=== PATIENT | female | born 1960 | race Caucasian/White ===

== ENCOUNTER 2018-08-24 01:17 | Emergency (ER) | payer MEDICARE, BC, SELFPAY ==
[2018-08-24 01:23] VITALS: BP 111/68; PULSE 64; RESP 16; TEMP 36.8; O2SAT 94
--- NOTE | 2018-08-24 01:54 | ED.GENADUL_ITS ---
Discharge Plan Disposition Patient Disposition: HOME Condition: Stable Discharge Details Chief Complaint: Trauma Clinical Impression: Fracture of right wrist, Laceration of right hand, Contusion of right elbow, Contusion of right hand, Contusion of Right Hip, Contusion of coccyx Primary Care Provider: Tahira Castrejon ED Provider: Ariela Negron Home Meds and New Rx's Prescriptions: New cephalexin [Keflex] 500 mg capsule 500 mg PO QID 7 Days Qty: 28 RF: 0 No Action morphine 15 MG tablet 10 mg PO BID RF: 0 milk thistle 500 MG capsule 4,000 mg PO DIRECTED RF: 0 trazodone 100 MG tablet 100 mg PO HS RF: 0 alprazolam 2 MG tablet 2 mg PO TID RF: 0 fenofibrate nanocrystallized [Tricor] 145 MG tablet 145 mg PO DAILY RF: 0 omeprazole [Prilosec] 20 MG capsule,delayed release(DR/EC) 20 mg PO DAILY RF: 0 potassium citrate 10 MEQ tablet extended release 10 meq PO BID RF: 0 cyclobenzaprine 10 MG tablet 10 mg PO HS RF: 0 magnesium 200 MG tablet 400 mg PO DAILY RF: 0 oxycodone 10 MG tablet 10 mg PO PRN RF: 0 aspirin [Aspirin Low-Strength] 81 MG tablet,chewable 81 mg PO DAILY RF: 0 multivitamin Tablet 1 tab PO DAILY RF: 0 sennosides [senna] 8.6 mg Tablet 8.6 mg PO TID RF: 0 pantoprazole 40 mg Tablet,Delayed Release (Dr/Ec) 40 mg PO DAILY RF: 0 Discharge Instructions Instructions: Laceration (ED), Wrist Fracture in Adults (ED), Contusion in Adults (ED) Additional Instructions: Rest, ice, elevate right wrist as much as possible. Take your pain medication that you have at home as needed and directed for pain. Keep wound on right hand clean, dry and covered. Use your incentive spirometer that you have at home several times an hour to help with deep breaths to prevent pneumonia. Apply ice to the affected areas of pain several times daily for 20 minutes at a time. Call orthopedics tomorrow morning to schedule follow-up appointment for reevaluation. Return immediately to the emergency department with any worsening or concerning symptoms. Referrals: Juan Maldonado MD [ [facility] STAFF PHYSICIAN] - Discharge Data Discharge Physician: Ariela Negron Medical Decision Making 58-year-old female who presents with multiple injuries status post a mechanical fall on ice 3 hours ago at home. Mainly complaining of pain in the bilateral ribs under her breasts, right hand and wrist, right hip and tailbone. Denies head injury. Vitals within normal limits. Patient moaning in pain and appears uncomfortable. She has edema and tenderness of her right wrist with a superficial laceration on her right palmar hand. No deformity. She has pain with range of motion in right hip but no deformity, shortening or external rotation. She has tenderness to palpation of her midline sacrum and coccyx but no C-spine/T-spine/L-spine tenderness. She has tenderness to palpation of her bilateral anterior ribs above and below breasts, bilateral inferior and posterior ribs. Lungs clear to auscultation. Abdomen soft and nontender. We will give a dose of oxycodone and send for multiple x-rays. Tetanus up-to-date 344 --x-rays reviewed. Right radius and ulnar styloid fractures noted. All other imaging negative. Right hand laceration irrigated and edges closely approximated. Bacitracin and dressing applied. Right volar splint placed. As her hand wound is superficial, I do not feel this meets criteria for significant open fracture, however will start on Keflex. Dose given here as well as prescription for home. Patient placed on orthopedic follow-up list. She is instructed to call orthopedics tomorrow morning to schedule follow-up appointment for evaluation. She is instructed on the importance of rest, ice, elevate and to take her pain m edication that she has at home for pain. She also has incentive spirometer at home that she is encouraged to use to help with deep breaths to prevent pneumonia. She is instructed to return to the ER with any concerns. Medical Records Medical records reviewed: Yes I reviewed the patient's medical records. Imaging Data Radiologic Study: Radiologist's impression: XR Right Elbow Complete, 3 or more Views EXAM DATE/TIME: 08/24/2018 1:49 AM FINDINGS: There is no evidence of fracture. The joint spaces are well maintained. There is no bony destruction. There is no joint effusion. IMPRESSION: 1. No evidence of fracture. 2. There is no bony destruction. XR Right Hand Complete, 3 or more Views EXAM DATE/TIME: 08/24/2018 1:49 AM FINDINGS: No fractures of the fingers are identified. There is a complex intra-articular fracture involving the distal radius. There may be a fracture involving the ulnar styloid. There is normal alignment of the carpal bones. IMPRESSION: 1. Comminuted intra-articular fracture of the distal radius. 2. Possible fracture of the ulnar styloid. 3. No fractures involving the fingers are identified. XR Right Wrist Complete, 3 or more Views XR Right Wrist Complete, 3 or more Views EXAM DATE/TIME: 08/24/2018 1:49 AM FINDINGS: There is a comminuted intra-articular fracture the distal radius. There is no significant angulation. There also appears to be a nondisplaced fracture involving the ulnar styloid. There is normal alignment of the carpal bones. IMPRESSION: 1. Comminuted intra-articular fracture of the distal radius. 2. Nondisplaced fracture of the ulnar styloid. XR Right Hip with Pelvis when Performed, 2 or 3 Views EXAM DATE/TIME: 08/24/2018 1:49 AM FINDINGS: There is no evidence of fracture. The joint spaces are well maintained. There is no bony destruction. Phleboliths are seen within the pelvis. IMPRESSION: No evidence of fracture. XR Sacrum and Coccyx, 2 or More Views EXAM DATE/TIME: 08/24/2018 1:49 AM FINDINGS: The sacrum appears normal. Sacroiliac joints are unremarkable. The neural foramina are intact. There is no bony destruction. There is normal alignment of the sacrum and coccygeal segments. There is no bony destruction. IMPRESSION: Unremarkable sacrum and coccyx. XR Bilateral Ribs with PA Chest, 4 Views EXAM DATE/TIME: 08/24/2018 1:49 AM FINDINGS: The lung avery are hypoventilated. There is some atelectasis/scarring within the lung bases. There is no pleural effusion or pneumothorax. The heart is normal in size. There are postop changes of the heart. No rib fractures are identified. IMPRESSION: 1. Atelectasis and scarring within the lung bases. 2. No evidence for rib fracture. HPI General Mode of arrival: wheelchair . Date/Time Provider Initiated Documentation: 08/24/18 01:30 . Limitations to Documentation: no limitations . Information obtained by: patient . HPI Narrative: Patient is a 58-year-old female who presents with multiple injuries after a slip and fall on ice while taking out her dog at home 3 hours ago. She is mainly complaining of pain in her bilateral ribs under her breasts, right wrist and hand, right elbow, right hip and tailbone. She denies head injury. She states she was walking out to take out her dog and slipped and fell mainly hitting her right side. She states she walked in the house and then due to her pain in her right side slipped again and thinks she may have hit her left side. She denies neck or back pain. She denies shortness of breath or abdominal pain. She takes morphine 50 mg twice daily and oxycodone 10 mg as needed for her chronic abdominal pain with her necrotizing pancreatitis and due to her fibromyalgia. She states her last dose of pain medication was 7:00 last night. Related Data Home Medications Medication Instructions Recorded Confirmed alprazolam 2 mg PO TID tab-cap 10/25/12 08/24/18 fenofibrate nanocrystallized 145 mg PO DAILY 10/25/12 08/24/18 [Tricor] milk thistle 4,000 mg PO DIRECTED 10/25/12 08/24/18 morphine 10 mg PO BID 10/25/12 08/24/18 trazodone 100 mg PO HS tab-cap 10/25/12 08/24/18 omeprazole [Prilosec] 20 mg PO DAILY tab-cap NS 07/02/13 08/24/18 cyclobenzaprine 10 mg PO HS 07/13/13 08/24/18 potassium citrate 10 meq PO BID 03/20/14 08/24/18 magnesium 400 mg PO DAILY 05/26/15 08/24/18 aspirin [Aspirin Low-Strength] 81 mg PO DAILY 09/11/15 08/24/18 oxycodone 10 mg PO PRN 09/11/15 08/24/18 cephalexin [Keflex] 500 mg PO QID 7 Days #28 cap 08/24/18 multivitamin 1 tab PO DAILY 08/24/18 08/24/18 pantoprazole 40 mg PO DAILY 08/24/18 08/24/18 sennosides [senna] 8.6 mg PO TID 08/24/18 08/24/18 Previous Rx's Medication Instructions Recorded cephalexin [Keflex] 500 mg PO QID 7 Days #28 cap 08/24/18 Allergies Allergy/AdvReac Type Severity Reaction Status Date / Time adhesive Allergy Unverified 08/24/18 01:47 atorvastatin [From Lipitor] Allergy Unverified 08/24/18 03:26 bupropion [From Wellbutrin] Allergy Unverified 08/24/18 03:26 gabapentin Allergy Unverified 08/24/18 03:26 pregabalin [From Lyrica] Allergy Unverified 08/24/18 03:26 Sulfa (Sulfonamide Allergy Unverified 08/24/18 01:47 Antibiotics) ssri Allergy Uncoded 08/24/18 01:47 General Stated Complaint: Trauma JONO: 3 Review of Systems Review of Systems All systems reviewed & are unremarkable except as noted in HPI and below Constitutional Reports as per HPI, Denies chills and Denies fever(s) Eyes Denies blurry vision ENT Denies dizziness, Denies sore throat and Denies throat swelling Cardiovascular Denies chest pain and Denies dyspnea Respiratory Denies cough and Denies dyspnea Gastrointestinal Denies abdominal pain, Denies diarrhea and Denies vomiting Genitourinary Denies hematuria and Denies dysuria Musculoskeletal Reports back pain, Denies numbness and Reports other (R hand/wrist/elbow/hip/tailbone pain) Integumentary/Breasts Denies lesions and Denies rash Neurologic Denies dizziness, Denies focal weakness and Denies numbness Allergic/Immunologic Denies throat swelling [facility] Medical History Chronic Lyme Disease Chronic fatigue syndrome Primary fibromyalgia syndrome Systemic candidiasis Surgical History Cervical Conization/LEEP Oophrectomy, Right Social History Smoking/Tobacco Use Status: Never Alcohol Intake: never Drug use: Never Substance use type: does not use Do you feel safe at home: Yes Do you feel safe in your relationship?: Yes Exam Const General: cooperative and other (moaning in pain) Orientation: alert, awake and oriented x3 HENMT Head: normal to inspection Ears: hearing grossly normal bilaterally, external ears normal and TM's normal bilaterally General nose exam: external nose normal Face and sinus: normal facial exam Mouth: oral mucosae normal Eyes General: appearance normal, both eyes and all related structures Eyelids: eyelids normal Pupils: PERRL EOM: EOM intact bilaterally Neck Neck: normal visual inspection Lymphatic: no lymphadenopathy noted Chest Chest: normal inspection of the chest and tenderness (Anterior bilateral rib cage above and below breasts. ) Other: No deformity, step-off, ecchymosis or open wounds. Resp Effort & Inspection: normal respiratory effort and able to speak in complete sentences Auscultation: clear to auscultation bilaterally Cardio Rate: regular rate Rhythm: regular rhythm GI Inspection: normal to inspection Palpation: soft, not firm, no guarding, no hepatosplenomegaly, no masses and nontender Auscultation: normal bowel sounds Back/Spine/Pelvis Cervical Spine: No cervical spinal tenderness Thoracic/Lumbar Spine: No thoracic spinal tenderness and No lumbar spinal tenderness Pelvis: no pain with anterior-posterior compression Sacrum: tenderness midline Coccyx: tenderness on direct palpation Skin General skin exam: no rashes or lesions noted Neuro General: alert and awake Cognition: normal cognition Speech: speech normal Gait: normal gait Motor: muscle tone normal throughout Sensory Exam: no sensory deficits noted Extrem Other: Right upper extremity: Tenderness to palpation of medial and lateral epicondyles and olecranon of right elbow. No deformity of elbow noted pain with range of motion. There is palpation and edema noted to right dorsal and volar wrist. No obvious deformity. There is limitation of motion at the right wrist due to pain. There is a 2 cm superficial laceration noted to surface of right proximal hand near wrist. No active bleeding. There is ecchymosis noted to the distal second finger with pain with range of motion. No deformity. No pain with range of motion noted at right shoulder or upper arm. Right radial and ulnar pulses intact. Left upper extremity: No pain with range of motion in left shoulder, upper arm, elbow, forearm, wrist or hand. Distal pulses intact. Right lower extremity: Pain in right hip with range of motion. No deformity, leg shortening or external rotation. No trauma noted to the right hip or remainder of right leg. Distal pulses intact. Left lower extremity: No pain with range of motion in hip/knee/ankle foot. Distal pulses intact. Psych Appearance: grossly normal Mental Status: mental status grossly normal Speech and Movement: speech and movement normal Affect: normal affect Thought Process: normal Course Vital Signs Temperature 98.2 F 08/24/18 01:23 Pulse 64 08/24/18 01:23 Respiratory Rate 16 08/24/18 01:23 Blood Pressure 111/68 08/24/18 01:23 Pulse Oximetry 94 L 08/24/18 01:23 Temperature 98.2 F 08/24/18 01:23 Temperature Source Temporal Artery Scan 08/24/18 01:23 Pulse 64 08/24/18 01:23 Respiratory Rate 16 08/24/18 01:23 Respiratory Effort 08/24/18 01:26 Respiratory Depth Normal 08/24/18 01:26 Respiratory Pattern Normal 08/24/18 01:26 Blood Pressure 111/68 08/24/18 01:23 Pulse Oximetry 94 L 08/24/18 01:23 Oxygen Delivery Method Room Air 08/24/18 01:23 Oxygen Flow Rate 0 08/24/18 01:23 Procedures Orthopedic Splinting/Casting Injury #1: Side: right Upper Extremity Injury Location: wrist Upper Extremity Immobilizer: volar spint
[2018-08-24] MEDS: oxyCODONE 10 MG TAB PO (01:55)
--- NOTE | 2018-08-24 02:56 | DI.RAD_ITS ---
SYMPTOM/DIAGNOSIS: S/P FALL, PAIN RIGHT ELBOW: There is no evidence of a fracture or dislocation. There is no joint effusion. The bony structures are normally mineralized. RIGHT HAND: There is a comminuted, intra-articular fracture of the distal radius and a nondisplaced fracture of the ulnar styloid. No fracture or dislocation involving the wrist or digits is identified. PA AND LATERAL CHEST AND RIGHT RIBS: No pneumothorax is identified. There are linear densities projected over the left lower lobe consistent with regions of scarring. There is no pleural effusion. The heart is not enlarged. The hilar structures, mediastinum and tracheal air column are intact. A right rib series was performed and no right rib fracture is defined. RIGHT HIP: There is no evidence of a fracture or dislocation. SACRUM AND COCCYX: No sacral or coccygeal fracture is demonstrated. There are degenerative changes involving the SI joints. RIGHT WRIST: There is a nondisplaced, intra-articular fracture of the distal right radius and ulnar styloid.
[2018-08-24] MEDS: Cephalexin 500 MG CAP 1000 MG PO (03:29)
--- NOTE | 2018-08-24 03:33 | DI.VRAD_ITS ---
EXAM: XR Right Elbow Complete, 3 or more Views EXAM DATE/TIME: 08/24/2018 1:49 AM CLINICAL HISTORY: 58 years old, female; Injury or trauma; Fall; Initial encounter; Blunt trauma (contusions or hematomas; Elbow; Right; Injury date: 08/24/2018; Injury details: Fell on ice TECHNIQUE: Imaging protocol: XR Right elbow, 3 or more views. COMPARISON: No relevant prior studies available. FINDINGS: There is no evidence of fracture. The joint spaces are well maintained. There is no bony destruction. There is no joint effusion. IMPRESSION: 1. No evidence of fracture. 2. There is no bony destruction. Dictated and Authenticated by: Yosef Villa MD. Ordering:ALEXA Titus MD
--- NOTE | 2018-08-24 03:34 | DI.VRAD_ITS ---
EXAM: XR Right Hand Complete, 3 or more Views EXAM DATE/TIME: 08/24/2018 1:49 AM CLINICAL HISTORY: 58 years old, female; Injury or trauma; Fall; Initial encounter; Blunt trauma (contusions or hematomas; Hand; Right; Injury date: 08/24/2018; Injury details: Fell on ice TECHNIQUE: Imaging protocol: XR Right hand 3 or more views. COMPARISON: CR RIGHT WRIST COMPLETE 07/14/2013 5:56 PM FINDINGS: No fractures of the fingers are identified. There is a complex intra-articular fracture involving the distal radius. There may be a fracture involving the ulnar styloid. There is normal alignment of the carpal bones. IMPRESSION: 1. Comminuted intra-articular fracture of the distal radius. 2. Possible fracture of the ulnar styloid. 3. No fractures involving the fingers are identified. Dictated and Authenticated by: Yosef Villa MD. Ordering:ALEXA Titus MD
--- NOTE | 2018-08-24 03:35 | DI.VRAD_ITS ---
EXAM: XR Right Wrist Complete, 3 or more Views EXAM DATE/TIME: 08/24/2018 1:49 AM CLINICAL HISTORY: 58 years old, female; Injury or trauma; Fall; Initial encounter; Blunt trauma (contusions or hematomas; Wrist; Right; Injury details: [place] TECHNIQUE: Imaging protocol: XR Right wrist 3 or more views. COMPARISON: CR RIGHT WRIST COMPLETE 07/14/2013 5:56 PM FINDINGS: There is a comminuted intra-articular fracture the distal radius. There is no significant angulation. There also appears to be a nondisplaced fracture involving the ulnar styloid. There is normal alignment of the carpal bones. IMPRESSION: 1. Comminuted intra-articular fracture of the distal radius. 2. Nondisplaced fracture of the ulnar styloid. Dictated and Authenticated by: Yosef Villa MD. Ordering:ALEXA Titus MD
--- NOTE | 2018-08-24 03:36 | DI.VRAD_ITS ---
EXAM: XR Right Hip with Pelvis when Performed, 2 or 3 Views EXAM DATE/TIME: 08/24/2018 1:49 AM CLINICAL HISTORY: 58 years old, female; Injury or trauma; Fall; Initial encounter; Blunt trauma (contusions or hematomas); Right; Hip TECHNIQUE: Imaging protocol: XR Right hip with pelvis when performed, 2 or 3 views COMPARISON: No relevant prior studies. FINDINGS: There is no evidence of fracture. The joint spaces are well maintained. There is no bony destruction. Phleboliths are seen within the pelvis. IMPRESSION: No evidence of fracture. Dictated and Authenticated by: Yosef Villa MD. Ordering:ALEXA Titus MD
--- NOTE | 2018-08-24 03:37 | DI.VRAD_ITS ---
EXAM: XR Sacrum and Coccyx, 2 or More Views EXAM DATE/TIME: 08/24/2018 1:49 AM CLINICAL HISTORY: 58 years old, female; Injury or trauma; Fall; Initial encounter; Blunt trauma (contusions or hematomas) TECHNIQUE: Imaging protocol: XR of the sacrum and coccyx, 2 or more views. COMPARISON: CR XR hip RT complete AP pelvis 08/24/2018 2:25 AM FINDINGS: The sacrum appears normal. Sacroiliac joints are unremarkable. The neural foramina are intact. There is no bony destruction. There is normal alignment of the sacrum and coccygeal segments. There is no bony destruction. IMPRESSION: Unremarkable sacrum and coccyx. Dictated and Authenticated by: Yosef Villa MD. Ordering:ALEXA Titus MD
--- NOTE | 2018-08-24 03:38 | DI.VRAD_ITS ---
EXAM: XR Bilateral Ribs with PA Chest, 4 Views EXAM DATE/TIME: 08/24/2018 1:49 AM CLINICAL HISTORY: 58 years old, female; Injury or trauma; Fall; Initial encounter; Rib area, bilateral; Blunt trauma TECHNIQUE: Imaging protocol: XR Bilateral ribs 4 views with PA chest. COMPARISON: CR CHEST 2 VIEWS PA,LAT 11/04/2015 6:52 PM FINDINGS: The lung avery are hypoventilated. There is some atelectasis/scarring within the lung bases. There is no pleural effusion or pneumothorax. The heart is normal in size. There are postop changes of the heart. No rib fractures are identified. IMPRESSION: 1. Atelectasis and scarring within the lung bases. 2. No evidence for rib fracture. Dictated and Authenticated by: Yosef Villa MD. Ordering:ALEXA Titus MD
[2018-08-24 04:00] VITALS: BP 111/68; PULSE 76; RESP 18; O2SAT 93
== END 2018-08-24 04:07 | disposition home or self-care (01) ==
PROVIDERS: Emergency Provider Physician Assistant; PCP Family Medicine
DX: S52.571A Other intraarticular fracture of lower end of right radius, initial encounter for closed fracture (principal); S52.614A Nondisplaced fracture of right ulna styloid process, initial encounter for closed fracture; S50.01XA Contusion of right elbow, initial encounter; S61.411A Laceration without foreign body of right hand, initial encounter; S70.01XA Contusion of right hip, initial encounter; S30.0XXA Contusion of lower back and pelvis, initial encounter; R07.81 Pleurodynia; W00.0XXA Fall on same level due to ice and snow, initial encounter; Y93.K1 Activity, walking an animal
CPT/HCPCS: 29125; 99284; 71046; 71110; 72220; 73080; 73110; 73130; 73502; L3650

== ENCOUNTER → 2018-08-31 11:08 | Outpatient (BNVA) | payer MEDICARE, BC, SELFPAY | PROVIDERS: PCP Family Medicine; Referring Provider Family Medicine; Visit Provider Orthopaedic Surgery | DX: S52.571A Other intraarticular fracture of lower end of right radius, initial encounter for closed fracture (principal); S52.614A Nondisplaced fracture of right ulna styloid process, initial encounter for closed fracture; W00.0XXA Fall on same level due to ice and snow, initial encounter | CPT/HCPCS: 29075; 99211; 99213 ==

== ENCOUNTER 2018-09-12 11:33 | Outpatient (CLI) | payer MEDICARE, BC, SELFPAY ==
--- NOTE | 2018-09-12 11:07 | DI.RAD_ITS ---
SYMPTOMS/DIAGNOSIS: F/U FRACTURE RIGHT WRIST: Three views. Comparison is 08/24/18. The patient's wrist is in a cast, which does obscure the underlying bony detail. There does not appear to be any significant change in the mildly impacted but otherwise nondisplaced fracture involving the distal right radius.
== END 2018-09-12 11:53 ==
PROVIDERS: PCP Family Medicine; Visit Provider Orthopaedic Surgery
DX: S52.614A Nondisplaced fracture of right ulna styloid process, initial encounter for closed fracture (principal); X58.XXXA Exposure to other specified factors, initial encounter
CPT/HCPCS: 99211; 99212; 73110

== ENCOUNTER 2018-09-28 14:09 | Outpatient (CLI) | payer MEDICARE, BC, SELFPAY ==
--- NOTE | 2018-09-28 14:04 | DI.RAD_ITS ---
SYMPTOMS/DIAGNOSIS: F/U FRACTURE RIGHT WRIST: The out-of-cast examination today reveals no interval change in the alignment of a comminuted intraarticular fracture of the distal radius.
== END 2018-09-28 14:29 ==
PROVIDERS: PCP Family Medicine; Referring Provider Family Medicine; Visit Provider Orthopaedic Surgery
DX: S52.614A Nondisplaced fracture of right ulna styloid process, initial encounter for closed fracture; X58.XXXA Exposure to other specified factors, initial encounter
CPT/HCPCS: 99211; 99213; 73110; L3908

== ENCOUNTER → 2018-10-19 11:01 | Outpatient (BNVA) | payer MEDICARE, BC, SELFPAY | PROVIDERS: PCP Family Medicine; Referring Provider Family Medicine; Visit Provider Orthopaedic Surgery | DX: S52.501A Unspecified fracture of the lower end of right radius, initial encounter for closed fracture (principal); X58.XXXA Exposure to other specified factors, initial encounter; M79.7 Fibromyalgia; G89.29 Other chronic pain | CPT/HCPCS: 99211; 99213 ==

== ENCOUNTER 2019-01-17 03:34 | Outpatient (CLI) | payer MEDICARE, BC, SELFPAY ==
--- NOTE | 2019-01-17 15:26 | DI.MAMMO_ITS ---
SYMPTOM/DIAGNOSIS: SCREENING, Z12.31 BILATERAL SCREENING MAMMOGRAMS: Comparison is made with 2012 and 2017. The breasts are composed of scattered fibroglandular densities, breast density category B. No suspicious masses or suspicious microcalcifications are seen. There has been no significant change. IMPRESSION: Category 1, negative mammogram. Yearly screening mammography is recommended. Breast density category B. MQSA ASSESSMENT OF FINDINGS: Negative. Category 1. Patient will receive a letter notifying them of these results. BI-RADS category B. There are scattered areas of fibroglandular density.
== END 2019-01-17 03:54 ==
PROVIDERS: PCP Family Medicine; Visit Provider Family Medicine
DX: Z12.31 Encounter for screening mammogram for malignant neoplasm of breast (principal)
CPT/HCPCS: 77063; 77067

== ENCOUNTER 2019-10-16 13:10 | Outpatient (REF) | payer MEDICARE, BC, SELFPAY ==
[2019-10-16 21:57] LABS: ALT 59 U/L (14-59); AST 46 U/L (15-37); Alkaline Phosphatase 100 U/L (46-116); Anion Gap 7.8 mmol/L (3-11); BUN 13 mg/dL (7-18); Bilirubin, Total 0.6 mg/dL (0.2-1.0); CO2 28.2 mmol/L (21.0-32.0); CREATININE 1.02 mg/dL (0.55-1.02); Calcium 9.6 mg/dL (8.5-10.1); Chloride 105 mmol/L (98-107); Estimated GFR 55.28 (mL/min/1.73m2); FREE T4 1.22 ng/dL (0.76-1.46); Glucose 158 mg/dL (74-106); Sodium 141 mmol/L (136-145); Total Protein 7.3 g/dL (6.4-8.2)
[2019-10-16 22:25] LABS: HCT 47.3 % (36.0-46.0); HGB 16.2 g/dL (12.0-15.5); Mean Corp. HGB Concentration 34.2 g/dL (32.0-36.0); Mean Corpuscular Hemoglobin 31.3 pg (27.0-33.0); Mean Corpuscular Volume 91.5 fL (80-95); Mean Platelet Volume 9.5 fL (8.0-11.0); Platelet Count 372 x1000/uL (130-400); RBC 5.17 m/cumm (4.00-5.20); RBC Distribution Width 12.3 % (11.7-14.6); White Blood Cell Count 6.99 k/cumm (4.4-10.8)
== END 2019-10-16 13:30 ==
LOC: NCHCN 13:10
PROVIDERS: PCP Family Medicine; Visit Provider Family Medicine
DX: R53.83 Other fatigue (principal); G89.29 Other chronic pain
CPT/HCPCS: 80053; 85027; 84439; 84443

== ENCOUNTER 2020-02-19 14:26 | Outpatient (CLI) | payer MEDICARE, BC, SELFPAY ==
--- NOTE | 2020-02-19 14:21 | DI.RAD_ITS ---
EXAM: XR SHOULDER RT COMPLETE 2+V CLINICAL HISTORY: right shoulder pain TECHNIQUE: COMPARISON: No exams were available for comparison FINDINGS: Two views were obtained. There are mild hypertrophic degenerative changes at the acromioclavicular j oint. Glenohumeral cartilaginous joint space appears fairly well maintained. No bony abnormality seen invo lving the humerus or glenoid. Alignment appears within normal limits. IMPRESSION: Mild degenerative changes of the AC joint. RADIATION DOSE DELIVERED: Total DLP
== END 2020-02-19 14:46 ==
PROVIDERS: PCP Family Medicine; Referring Provider Family Medicine; Visit Provider Student in an Organized Health Care Education/Training Program
DX: M19.011 Primary osteoarthritis, right shoulder (principal); M25.511 Pain in right shoulder; M75.21 Bicipital tendinitis, right shoulder; M75.51 Bursitis of right shoulder; Z87.81 Personal history of (healed) traumatic fracture
CPT/HCPCS: 99204; 99215; 73030

== ENCOUNTER 2020-03-06 02:43 | Outpatient (CLI) | payer MEDICARE, BC, SELFPAY ==
--- NOTE | 2020-03-06 08:36 | DI.MRI_ITS ---
EXAM: MR UPPER JOINT RT WO CLINICAL HISTORY: Right shoulder pain traumatic onset >1 year,TENDINITIS, BURSITIS,M75.51,. TECHNIQUE: Multiplanar multisequence MRI was performed. COMPARISON: Plain films dated 19 February 2020 FINDINGS: Bones: There is no fracture or contusion pattern. The acromioclavicular joint shows mild inferior spurring a nd small amounts of fluid. There is no significant impingement. There is minimal spurring at the un dersurface of the acromion.. No subcoracoid or glenohumeral joint effusion is present. There is a minimal amount of fluid in the sub coracoid bursa. Rotator Cuff: The supraspinatus tendon shows increased signal distally which could indicate tendinitis versus parti al tear. There is a small cyst in the greater tuberosity.. The infraspinatus tendon is intact. The subscapularis and teres minor are normal. Labrum and biceps anchor: The biceps tendon is located. The anchor is well maintained. The labrum is within normal limits. IMPRESSION: Supraspinatus tendinitis versus partial tear. Minimal amount of fluid in the subacromial subdeltoid bursa could indicate bursitis. DATA REPOSITORY:
== END 2020-03-06 03:03 ==
PROVIDERS: PCP Family Medicine; Visit Provider Student in an Organized Health Care Education/Training Program
DX: M75.51 Bursitis of right shoulder (principal); M25.511 Pain in right shoulder
CPT/HCPCS: 73221

== ENCOUNTER → 2020-04-09 14:40 | Outpatient (BNVA) | payer MEDICARE, BC, SELFPAY | PROVIDERS: PCP Family Medicine; Referring Provider Family Medicine; Visit Provider Student in an Organized Health Care Education/Training Program | DX: M75.51 Bursitis of right shoulder (principal); M75.21 Bicipital tendinitis, right shoulder | CPT/HCPCS: 20610; 99214; J1030 ==

== ENCOUNTER → 2021-12-31 02:36 | Outpatient (CLI) | payer OTHER, SELFPAY ==
--- NOTE | 2021-12-31 | DI.MAMMO_ITS ---
Exam(s) MAMMO SCREENING EXAM: MAMMO SCREENING CLINICAL HISTORY: SCREENING, Z12.31 TECHNIQUE: Bilateral full field digital CC and MLO mammographic images were obtained with 3D tomosyn thesis and utilizing computer aided detection (CAD). COMPARISON: Available for comparison. FINDINGS: Masses/Architectural Distortion: None seen. Microcalcifications: No suspicious pleomorphic-type are seen. Skin Thickening/Nipple Retraction: None. IMPRESSION: 1. No significant interval change with no specific features of malignancy noted. 2. Unless there is more urgent need, screening mammography is recommended, as per [employer] guidelines. BI-RADS Category 1 - Negative Breast Density - Category B - Scattered areas of fibroglandular density Breast density category C or D implies that the patient has dense breast tissue. Dense breast tissue is very common and is not abnormal but dense breast tissue can make it harder to find cancer on a ma mmogram. Also, dense breast tissue may increase their breast cancer risk. This information about the result of the mammogram report was provided to the patient to raise their awareness. Use this report when you speak with the patient about their risks for breast cancer, which includes their family hist ory. At that time, you may recommend for more screening tests (Ultrasound or MRI) as they might be us eful based on their risk. A negative radiographic report should not delay biopsy if a dominant or clinically suspicious mass is present. Up to ten percent of cancers are not identified on mammography. A negative report may reinforce clinical impression. Adenosis and dense breasts may obscure an underlying neoplasm. False positive reports average 6 to 10%. Patient will receive a letter notifying them of these results.
== END ==
PROVIDERS: PCP Family Medicine; Visit Provider Family Medicine
DX: Z12.31 Encounter for screening mammogram for malignant neoplasm of breast (principal)
CPT/HCPCS: 77063; 77067

== ENCOUNTER → 2021-12-31 02:37 | Outpatient (CLI) | payer OTHER, SELFPAY ==
--- NOTE | 2021-12-31 | DI.DEXA_ITS ---
Exam(s) XR DEXA BONE DENSITY W/WO MARY EXAM: XR DEXA BONE DENSITY W/WO MARY CLINICAL HISTORY: MENOPAUSAL SCREENING, Z78.0 TECHNIQUE: COMPARISON: Comparison examination is 12/26/2008. FINDINGS: Lateral Spine Image: Unremarkable. No compression deformities identified. Left hip: Total T-Score: -2.6. This compares to -0.7 on the prior examination. Total Z-Score: -1.5 T- and Z-scores: Findings are consistent with osteoporosis. Lumbar Spine: Total T-Score: -1.8. This compares to -0.8 on the prior examination. Total Z-Score: -0.2 T- and Z-scores: Findings are consistent with osteopenia. IMPRESSION: Osteoporosis in the left hip.
== END ==
PROVIDERS: PCP Family Medicine; Visit Provider Family Medicine
DX: M81.0 Age-related osteoporosis without current pathological fracture (principal); Z78.0 Asymptomatic menopausal state
CPT/HCPCS: 77080; 87480; 87510; 87660

== ENCOUNTER 2021-12-31 17:36 | Outpatient (REF) | payer OTHER, SELFPAY ==
--- NOTE | 2021-12-31 15:20 | PAPFT_PTH ---
PATIENT: Maricruz Best LOC: [facility] U#:[id number] AGE/SX: 61/F ROOM: RE12/31/[address]: Obdulia Cordova MD : 1960 BED: DIS: 12/31/2021 SPEC #: [id number] RECD: 12/31/21 17:47 STATUS: CHARLEY REQ #: [id number] MAX: 12/31/21 15:[address]: Obdulia Cordova DEPT: [facility] Cytology RECD BY: Kim Beltran ENTERED: 12/31/21 17:48 SP TYPE: PAPFT OTHR DR: Tahira Castrejon Tissues: 1 - CX/ENDOCX FOR PAP SMEARS Procedures: PAP THIN PREP/UVM Screening HPV DNA PROBE Comments: [id number]
== END 2021-12-31 17:37 | disposition home or self-care (01) ==
LOC: LBN 17:36
PROVIDERS: PCP Family Medicine; Visit Provider Obstetrics & Gynecology
DX: Z01.419 Encounter for gynecological examination (general) (routine) without abnormal findings (principal); Z11.51 Encounter for screening for human papillomavirus (HPV)
CPT/HCPCS: 88142; 87624

== ENCOUNTER 2022-10-14 21:13 | Emergency (ER) | payer OTHER, SELFPAY ==
[2022-10-14 21:16] VITALS: BP 128/71; PULSE 60; RESP 16; TEMP 36.4; O2SAT 98
--- NOTE | 2022-10-14 21:45 | DI.CT_ITS ---
Exam(s) CT ABDOMEN PELVIS W EXAM: CT ABDOMEN PELVIS W CLINICAL HISTORY: right flank pain and hematuria. TECHNIQUE: Imaging Protocol: Axial computed tomography images with coronal and sagittal reformatted images were created and reviewed CONTRAST MATERIAL: Intravenous: Omnipaque 350 Contrast volume:100 ml Oral: yes / COMPARISON: CT ABD PELVIS WO CONTRAST from 11/04/2015 FINDINGS: ABDOMEN: Lung Bases: Normal where visualized. Heart mildly enlarged. Liver: Normal density. No measurable mass. Gallbladder and biliary tract: Status post cholecystectomy. Stable mild biliary dilatation. Pancreas: Normal density, no abnormal calcifications or inflammatory process. Spleen: Normal. Kidneys: Normal size, contour and axis. Mild right hydronephrosis secondary to a 3 millimeter calculu s in the distal ureter. A additional small nonobstructing stones noted at the lower pole of the righ t kidney. No left renal stones are seen. There are multiple small bilateral renal cysts. No follow -up recommended. No suspicious masses seen. Adrenal glands: No masses seen. Abdominal Aorta: Abdominal portion non-dilated. Soft tissues: Ventral hernia repair which appears intact. PELVIS: Bladder: Nearly empty. No calculi.No focal mass. Bowel: No obstruction. No bowel wall thickening. Peritoneal cavity: No ascites, collection or mesenteric inflammatory response. Bones: Degenerative disc changes at L5-S1. Reproductive organs: Within normal limits. Lymph nodes: Unremarkable. Impression: Mild right hydronephrosis secondary to a 3 millimeter stone in the distal ureter. Additional small n onobstructing stones lower pole right kidney. RADIATION DOSE DELIVERED: 727.82mGy.cm Total DLP DATA REPOSITORY: All CT scans at this facility are submitted to the National Radiology Data Registry (NRDR) Dose Index Registry (DIR) with the [employer] (ACR). RADIATION OPTIMIZATION: All CT scans at this facility use at least one of these dose optimization te chniques: automated exposure control; mA and/or kV adjustment per patient size (includes targeted exa ms where dose is matched to clinical indication); or iterative reconstruction.
[2022-10-14 21:48] LABS: Abs Immature Grans 0.01 10^3/uL (0.0-0.06); Absolute Basophil Count 0.05 10^3/uL (0.0-0.2); Absolute Lymphocyte Count 1.75 10^3/uL (1.2-3.4); Absolute Monocyte Count 0.93 10^3/uL (0.1-0.8); Absolute Neutrophil Count 5.22 10^3/uL (1.2-6.7); Basophils % 0.6; Eosinophils % 1.2; HCT 39.4 % (36.0-46.0); HGB 13.5 g/dL (11.2-15.7); Immature Grans % 0.1; Lymphocytes % 21.7; MCH 32.4 pg (27.0-33.0); MCHC 34.3 % (32.0-36.0); MCV 95 fL (80-95); Monocytes % 11.5; Neutrophils % 64.9; Platelet Count 238 10^3/uL (130-400); RBC 4.17 10^6/uL (3.93-5.22); RDW 12.2 % (11.7-14.6); RDW-SD 42.3 fL; WBC 8.06 10^3/uL (4.4-10.8)
[2022-10-14 22:02] LABS: ALT 19 U/L (14-59); AST 30 U/L (15-37); Alkaline Phosphatase 43 U/L (46-116); Anion Gap 6.9 mmol/L (3-11); BUN 11 mg/dL (7-18); Bilirubin, Total 0.6 mg/dL (0.2-1.0); CO2 27.1 mmol/L (21.0-32.0); CREATININE 0.9 mg/dL (0.55-1.02); Calcium 9.4 mg/dL (8.5-10.1); Chloride 106 mmol/L (98-107); Estimated GFR 71.83 (mL/min/1.73m2); Glucose 83 mg/dL (74-106); Lipase 32 U/L (16-77); Sodium 140 mmol/L (136-145); Total Protein 6.8 g/dL (6.4-8.2)
[2022-10-14] MEDS: Lactated Ringers 1,000 ML 1000 ML IV (22:42)
[2022-10-14] MEDS: fentaNYL 100 MCG/2 ML VIAL 50 MCG IVP (22:43)
--- NOTE | 2022-10-14 22:48 | W.ED.GENAD ---
Discharge Plan Disposition Patient Disposition: Home Condition: Improving Discharge Details Clinical Impression: Kidney stone Primary Care Provider: Tahira Castrejon ED Provider: Kim Cullen Home Meds and New Rx's Prescriptions: New cefpodoxime 200 mg tablet 200 mg PO BID 5 Days Qty: 10 0RF Rx Instructions: must administer with a meal/food tamsulosin [Flomax] 0.4 mg capsule 0.4 mg PO DAILY 5 Days Qty: 5 0RF No Action ondansetron HCl 4 mg tablet 4 mg PO Q6H PRN sumatriptan succinate 100 mg tablet See Rx Instructions PO .COMPLEX Rx Instructions: take 1 tab at onset of headache; if no relief, may repeat 1 tab after at least 2 hrs; max = 2 tabs/24 hrs PO ibuprofen 600 mg tablet 600 mg PO Q6H PRN hydrocortisone 2.5 % cream 1 applic topical BID PRN naloxone [Narcan] 4 mg/actuation spray,non-aerosol 4 mg intranasal Q2M PRN Rx Instructions: spray 1 dose into ONE nostril; alternate nostrils w each dose until help arrives rosuvastatin 20 mg tablet 20 mg PO DAILY albuterol sulfate [Ventolin HFA] 90 mcg/actuation HFA aerosol inhaler 2 puff inhalation Q6H PRN alprazolam 2 mg tablet 2 mg PO TID PRN fenofibrate nanocrystallized [Tricor] 145 mg tablet 54 mg PO DAILY morphine 15 mg tablet 15 mg PO BID PRN trazodone 100 mg tablet 100 mg PO HS Patient Comments: 12/31/21- per [facility] med list- take 1-2 tab po every night (100 mg- 200 mg) cyclobenzaprine 10 mg tablet 5 mg PO TID PRN aspirin [Aspirin Low-Strength] 81 MG tablet,chewable 81 mg PO DAILY oxycodone 10 mg tablet 5 mg PO BID PRN multivitamin Tablet 1 tab PO DAILY Discharge Instructions Instructions: Kidney Stones (ED) Additional Instructions: Please follow-up with urology next week. Please return to the emergency department for any worsening symptoms. Discharge Data Discharge Date/Time-TO BE ENTERED AT DEPARTURE: 10/15/22 01:01 Medical Decision Making <HANNAH Post - Last Filed: 10/15/22 16:14> LB: This is very left 62-year-old female presents after injury to her flank with subsequent development of hematuria Denies any chest pain, shortness of breath, history of coagulopathy. Hemodynamically stable, CBC within normal limits, will order CT abdomen and pelvis with contrast for further differentiation Will need urinalysis, CT abdomen and pelvis, repeat assessment Patient has been hemodynamically stable throughout this encounter Will transition care to pending CT interpretation and urinalysis review SD: 00:54 Distal right ureteral stone. Pain well controlled. No fever no white count. Nitrate positive urine we will start empiric cefpodoxime. We will also provide Flomax. Patient doing much better after medications. We will follow-up with urology. Given home care instructions and return precautions Medical Records Medical records reviewed: Yes I reviewed the patient's medical records. Lab Data Lab results reviewed: Yes I reviewed the patient's lab results. <Junior Dodge MD - Last Filed: 10/15/22 00:56> 62-year-old female presents after injury to her flank with subsequent development of hematuria Denies any chest pain, shortness of breath, history of coagulopathy. Hemodynamically stable, CBC within normal limits, will order CT abdomen and pelvis with contrast for further differentiation Will need urinalysis, CT abdomen and pelvis, repeat assessment Patient has been hemodynamically stable throughout this encounter Will transition care to pending CT interpretation and urinalysis review 00:54 Distal right ureteral stone. Pain well controlled. No fever no white count. Nitrate positive urine we will start empiric cefpodoxime. We will also provide Flomax. Patient doing much better after medications. We will follow-up with urology. Given home care instructions and return precautions HPI <HANNAH Post - Last Filed: 10/15/22 16:14> General Date/Time Provider Initiated Documentation: 10/14/22 21:22. HPI Narrative: This 62-year-old female presents with report of right flank pain and lower abdominal pain that started last evening after hitting her abdomen on the corner of a counter. Denies any additional injury. States she started urinating blood this morning. Denies any clots. Denies any blood in her stool. Denies history of coagulopathy. Reports lower abdominal pain and right flank pain. Related Data Home Medications Medication Instructions Recorded Confirmed aspirin 81 mg chewable tablet 81 mg PO DAILY 09/11/15 12/31/21 (Aspirin Low-Strength) multivitamin 1 tab PO DAILY 08/24/18 12/31/21 albuterol sulfate 90 mcg/actuation 2 puff inhalation Q6H PRN 12/31/21 12/31/21 aerosol inhaler (Ventolin HFA) alprazolam 2 mg tablet 2 mg PO TID PRN 12/31/21 12/31/21 cyclobenzaprine 10 mg tablet 5 mg PO TID PRN 12/31/21 12/31/21 fenofibrate nanocrystallized 145 54 mg PO DAILY 12/31/21 12/31/21 mg tablet (Tricor) hydrocortisone 2.5 % topical cream 1 applic topical BID PRN 12/31/21 12/31/21 ibuprofen 600 mg tablet 600 mg PO Q6H PRN 12/31/21 12/31/21 morphine 15 mg immediate release 15 mg PO BID PRN 12/31/21 12/31/21 tablet naloxone 4 mg/actuation nasal 4 mg intranasal Q2M PRN 12/31/21 12/31/21 spray (Narcan) ondansetron HCl 4 mg tablet 4 mg PO Q6H PRN 12/31/21 12/31/21 oxycodone 10 mg tablet 5 mg PO BID PRN 12/31/21 12/31/21 rosuvastatin 20 mg tablet 20 mg PO DAILY 12/31/21 12/31/21 sumatriptan succinate 100 mg tablet See Rx Instructions PO .COMPLEX 12/31/21 12/31/21 trazodone 100 mg tablet 100 mg PO HS 12/31/21 12/31/21 cefpodoxime 200 mg tablet 200 mg PO BID 5 days #10 tabs 10/15/22 tamsulosin 0.4 mg capsule (Flomax) 0.4 mg PO DAILY 5 days #5 caps 10/15/22 Previous Rx's Medication Instructions Recorded cefpodoxime 200 mg tablet 200 mg PO BID 5 days #10 tabs 10/15/22 tamsulosin 0.4 mg capsule (Flomax) 0.4 mg PO DAILY 5 days #5 caps 10/15/22 Allergies Allergy/AdvReac Type Severity Reaction Status Date / Time adhesive Allergy Verified 12/31/21 14:51 atorvastatin [From Lipitor] Allergy Verified 12/31/21 14:51 bupropion [From Wellbutrin] Allergy Verified 12/31/21 14:51 gabapentin Allergy Verified 12/31/21 14:51 pregabalin [From Lyrica] Allergy Verified 12/31/21 14:51 Sulfa (Sulfonamide Allergy Verified 12/31/21 14:51 Antibiotics) ssri Allergy Uncoded 12/31/21 14:51 General Stated Complaint: FlankPain JONO: 3 PFSH <HANNAH Post - Last Filed: 10/15/22 16:14> All Active Problems (Updated 10/15/22 @ 00:54 by Junior Dodge MD) Kidney stone (Chronic) Bursitis of right shoulder (Acute) Tendinitis of long head of biceps brachii of right shoulder (Acute) Right shoulder pain (Acute) Acute necrotizing pancreatitis (Acute) Chronic narcotic dependence (Chronic) Pleural effusion (Acute) Pericarditis (Acute) Pericardial effusion without cardiac tamponade (Acute) Chest pain, pleuritic (Acute) Chronic pain syndrome (Chronic) Anemia (Acute) Myalgia (Chronic) Peptic ulcer disease (Chronic) H/o Lyme disease (Chronic) Cardiomegaly (Chronic) Atrial septal defect (Chronic) Fracture dislocation of joint (Acute) Closed nondisplaced fracture of styloid process of right ulna (Acute) Other intraarticular fracture of lower end of right radius, initial encounter for closed fracture (Acute) Medical History (Updated 10/15/22 @ 00:54 by Junior Dodge MD) Chronic fatigue syndrome Chronic Lyme Disease Primary fibromyalgia syndrome Systemic candidiasis Surgical History Cervical Conization/LEEP ? year and also cryo cauterizations ? Pap diagnosis Oophrectomy, Right ? year secondary to torsion Social History Smoking/Tobacco Use Status: Never Smoking risk assessment performed?: Yes Alcohol Intake: never Drug use: Never Substance use type: does not use Current gender identity: female Do you feel safe at home: Yes Do you feel safe in your relationship?: Yes Female Reproductive History Menstrual Age of Menarche: 17 Duration of menses: 6-7 days control method: none History History 3 Para 0 Hx # Term Pregnancies Multiple births Hx # Pregnancies Ectopic pregnancies AB induced Hx Number of Living Children AB spontaneous 3 Exam <HANNAH Post - Last Filed: 10/15/22 16:14> Const General: cooperative, comfortable and no acute distress Resp Effort & Inspection: normal respiratory effort Auscultation: clear to auscultation bilaterally Cardio Rate: regular rate Rhythm: regular rhythm GI Other: Mild suprapubic tenderness and right flank tenderness, no visible sign of trauma, no rebound or guarding Skin General skin exam: no rashes or lesions noted Neuro General: patient alert and patient oriented x3 Course <HANNAH Post - Last Filed: 10/15/22 16:14> Vital Signs Vital signs: Vital Signs Temperature 36.4 C L 10/14/22 21:16 Pulse 60 10/14/22 21:16 Respiratory Rate 16 10/14/22 21:16 Blood Pressure 128/71 10/14/22 21:16 Pulse Oximetry 98 10/14/22 21:16 Temperature 36.4 C L 10/14/22 21:16 Pulse 60 10/14/22 21:16 Respiratory Rate 16 10/14/22 21:16 Respiratory Effort Normal 10/14/22 21:20 Blood Pressure 128/71 10/14/22 21:16 Blood Pressure Position Sitting 10/14/22 21:16 Pulse Oximetry 98 10/14/22 21:16 Pain Level 9 10/14/22 22:43 Lab/Test Results Lab/Test Results: Laboratory Tests Range/Units 10/14/22 10/14/22 21:40 21:40 WBC (4.4-10.8) 10^3/uL 8.06 RBC (3.93-5.22) 10^6/uL 4.17 Hgb (11.2-15.7) g/dL 13.5 Hct (36.0-46.0) % 39.4 MCV (80-95) fL 95 MCH (27.0-33.0) pg 32.4 MCHC (32.0-36.0) % 34.3 RDW (11.7-14.6) % 12.2 Plt Count (130-400) 10^3/uL 238 MPV (8.0-11.0) fL 9.0 Immature Gran % 0.1 Neutrophils % 64.9 Lymphocytes % 21.7 Monocytes % 11.5 Eosinophils % 1.2 Basophils % 0.6 Nucleated RBC % (0.0-0.3) % 0.0 Absolute Neutrophils (1.2-6.7) 10^3/uL 5.22 Absolute Lymphocytes (1.2-3.4) 10^3/uL 1.75 Absolute Monocytes (0.1-0.8) 10^3/uL 0.93 H Absolute Eosinophils (0.0-0.7) 10^3/uL 0.10 Absolute Basophils (0.0-0.2) 10^3/uL 0.05 Sodium (136-145) mmol/L 140 Potassium (3.5-5.1) mmol/L 4.0 Chloride (98-107) mmol/L 106 Carbon Dioxide (21.0-32.0) mmol/L 27.1 Anion Gap (3-11) mmol/L 6.9 BUN (7-18) mg/dL 11 Creatinine (0.55-1.02) mg/dL 0.9 Est GFR (CKD-EPI 2020) (mL/min/1.73m2) 71.83 Glucose (74-106) mg/dL 83 Calcium (8.5-10.1) mg/dL 9.4 Total Bilirubin (0.2-1.0) mg/dL 0.6 AST (15-37) U/L 30 ALT (14-59) U/L 19 Alkaline Phosphatase (46-116) U/L 43 L Total Protein (6.4-8.2) g/dL 6.8 Albumin (3.4-5.0) g/dL 4.0 Lipase (16-77) U/L 32
[2022-10-14] MEDS: Omnipaque 350 MG/ML 100 ML BTL IJ (22:57)
[2022-10-14] MEDS: Normal Saline - Diluent 50 ML VIAL IJ (22:58)
[2022-10-14 23:04] LABS: Bilirubin Moderate (Negative); Blood Large (Negative); Clarity Cloudy (Clear); Glucose Negative (Negative); Ketones 15 mg/dL (Negative); Leukocyte Esterase Negative (Negative); Nitrite Positive (Negative); pH 5.5 (5-8)
[2022-10-14 23:20] LABS: C & S Indicated? Yes
--- NOTE | 2022-10-14 23:58 | DI.VRAD_ITS ---
PROCEDURE INFORMATION: Exam: CT Abdomen And Pelvis With Contrast Exam date and time: 10/14/2022 10:51 PM Age: 62 years old Clinical indication: Other: Right flank pain and hematuria TECHNIQUE: Imaging protocol: Computed tomography of the abdomen and pelvis with contrast. Contrast material: OMNIPQUE 350; Contrast volume: 100 ml; Contrast route: INTRAVENOUS (IV); COMPARISON: CT ABD PELVIS WO CONTRAST 11/04/2015 7:07 PM FINDINGS: Liver: Normal. No mass. Gallbladder and bile ducts: The gallbladder appears to be surgically absent. There is mild diffuse biliary ductal dilation, likely related to prior cholecystectomy. Pancreas: Normal. No ductal dilation. Spleen: Normal. No splenomegaly. Adrenal glands: Normal. No mass. Kidneys and ureters: On axial image 68, there is a 3 mm stone in the distal right ureter producing moderate right hydronephrosis. A few small caliceal stones noted in the right kidney. Multiple simple appearing bilateral renal cortical cysts are noted, the largest measuring 3.8 cm in the left kidney. No evidence of solid renal mass. Stomach and bowel: Unremarkable. No obstruction. No mucosal thickening. Appendix: No evidence of appendicitis. Intraperitoneal space: Unremarkable. No free air. No significant fluid collection. Vasculature: Unremarkable. No abdominal aortic aneurysm. Lymph nodes: Unremarkable. No enlarged lymph nodes. Urinary bladder: Unremarkable as visualized. Reproductive: Unremarkable as visualized. Bones/joints: Severe degenerative disc changes noted at the lumbosacral junction. No vertebral body compression or acute fracture. Soft tissues: Evidence of prior ventral hernia repair noted. IMPRESSION: 3 mm distal right ureteral stone producing moderate right hydronephrosis. Mild right nephrolithiasis also noted. Other incidental chronic findings as described. Dictated and Authenticated by: John Beckham MD. Ordering:SANDEEP Alvarez MD
[2022-10-15] MEDS: Tamsulosin 0.4 MG CAPCR PO (00:38)
[2022-10-15] MEDS: Cefpodoxime 200 MG TAB 400 MG PO (00:38)
[2022-10-15] MEDS: Ketorolac 15 MG/ML VIAL IVP (00:38)
--- NOTE | 2022-10-15 00:57 | NUR.NOTE ---
Referral faxed to [facility] to f/u sometime next week for kidney stone.Nursing Note:
[2022-10-15 01:00] VITALS: BP 137/70; PULSE 72; RESP 16; O2SAT 98
== END 2022-10-15 01:01 | disposition home or self-care (01) ==
PROVIDERS: Emergency Provider Physician Assistant; PCP Family Medicine
DX: N20.0 Calculus of kidney (principal); Z87.442 Personal history of urinary calculi; G93.32 Myalgic encephalomyelitis/chronic fatigue syndrome; M79.7 Fibromyalgia
CPT/HCPCS: 36415; 80053; 83690; 96361; 96374; 96375; 99283; 74177; 81003; 81015; 85025; 87086; 99284; J1885; J3010; J3490

== ENCOUNTER → 2022-11-09 09:04 | Outpatient (BNVA) | payer OTHER, SELFPAY | PROVIDERS: PCP Family Medicine; Referring Provider Family Medicine; Visit Provider Nurse Practitioner Gerontology | DX: N20.0 Calculus of kidney (principal) | CPT/HCPCS: 99214 ==

== ENCOUNTER 2024-05-21 18:39 | Outpatient (REF) | payer BC, SELFPAY ==
[2024-05-21 21:43] LABS: HGB 14.8 g/dL (11.2-15.7); MCHC 33.6 % (32.0-36.0); MCV 98 fL (80-95); MPV 9.4 fL (8.0-11.0); Platelet Count 235 10^3/uL (130-400); RBC 4.48 10^6/uL (3.93-5.22); RDW 11.7 % (11.7-14.6); RDW-SD 42.5 fL; WBC 4.36 10^3/uL (4.4-10.8)
[2024-05-21 22:04] LABS: ALT 19 U/L (14-59); AST 20 U/L (15-37); Albumin 3.9 g/dL (3.4-5.0); Alkaline Phosphatase 55 U/L (46-116); Anion Gap 5.6 mmol/L (3-11); BUN 12 mg/dL (7-18); Bilirubin, Total 0.62 mg/dL (0.2-1.0); CO2 30.4 mmol/L (21.0-32.0); Calcium 9.4 mg/dL (8.5-10.1); Calculated LDL 47 mg/dL (<100); Chloride 107 mmol/L (98-107); Cholesterol 154 mg/dL (<200); Estimated GFR 62.91 (mL/min/1.73m2); Glucose 88 mg/dL (74-106); HDL Cholesterol 92 mg/dL (40-60); Potassium 4.8 mmol/L (3.5-5.1); Sodium 143 mmol/L (136-145); Total Protein 6.6 g/dL (6.4-8.2); Triglyceride 79 mg/dL (<150)
== END 2024-05-21 18:40 | disposition home or self-care (01) ==
LOC: NCHCN 18:39
PROVIDERS: PCP Family Medicine; Visit Provider Family Medicine
DX: Z00.00 Encounter for general adult medical examination without abnormal findings (principal)
CPT/HCPCS: 80053; 80061; 85027

== ENCOUNTER 2024-12-10 08:17 | Emergency (ER) | payer MEDICARE, SELFPAY ==
[2024-12-10] VITALS (30 sets, daily range): BP systolic 103–132; BP diastolic 56–74; PULSE 0–66; RESP 9–33; TEMP 36.5; O2SAT 96–100
--- NOTE | 2024-12-10 08:15 | RT.EKG_ITS ---
APPROVED REPORT Exam: Resting ECG Reason for Exam: CAD Patient Location: E HR:53 bpm ECG Measurements Heart Rate 53 AXIS WV 157 P 30 QRSd 89 QRS 46 QT 475 T 23 QTc 446 Conclusion Sinus bradycardia 53 normal axis no stemi
--- NOTE | 2024-12-10 08:34 | DI.CT_ITS ---
Exam(s) CT HEAD WO EXAM: CT HEAD WO CLINICAL HISTORY: Dizziness, numbness. TECHNIQUE: Imaging Protocol: Axial computed tomography images with coronal and sagittal reformatted images were created and reviewed COMPARISON: CT HEAD WITHOUT CONTRAST from 11/04/2015 FINDINGS: There are no skull fractures. There is no fluid in the visualized paranasal sinuses. There is no evidence of intracranial hemorrhage, mass effect, or shift of midline structures. There are no extra-axial fluid collections. The ventricles are not enlarged or shifted and there is no blood within the ventricular system nor within the basal cisterns. IMPRESSION: No acute intracranial findings on this noninfused CT scan of the brain. Called by myself to ER 12/10/2024 at 9:40 a.m. RADIATION DOSE DELIVERED: 835.32mGy.cm Total DLP DATA REPOSITORY: All CT scans at this facility are submitted to the National Radiology Data Registry (NRDR) Dose Index Registry (DIR) with the [employer] (ACR). RADIATION OPTIMIZATION: All CT scans at this facility use at least one of these dose optimization techniques: automated exposure control; mA and/or kV adjustment per patient size (includes targeted exams where dose is matched to clinical indication); or iterative reconstruction.
--- NOTE | 2024-12-10 08:38 | W.ED.GENAD ---
Discharge Plan Disposition Patient Disposition: Home Condition: Stable Discharge Details Clinical Impression: Dehydration, Chest pain, Heat exhaustion Primary Care Provider: Tahira Castrejon ED Provider: Carolin Thomas Home Meds and New Rx's Prescriptions: Continued ondansetron HCl 4 mg tablet 4 mg PO Q6H PRN sumatriptan succinate 100 mg tablet See Rx Instructions PO .COMPLEX Rx Instructions: take 1 tab at onset of headache; if no relief, may repeat 1 tab after at least 2 hrs; max = 2 tabs/24 hrs PO ibuprofen 600 mg tablet 600 mg PO Q6H PRN hydrocortisone 2.5 % cream 1 applic topical BID PRN naloxone [Narcan] 4 mg/actuation spray,non-aerosol 4 mg intranasal Q2M PRN Rx Instructions: spray 1 dose into ONE nostril; alternate nostrils w each dose until help arrives rosuvastatin 20 mg tablet 20 mg PO DAILY albuterol sulfate [Ventolin HFA] 90 mcg/actuation HFA aerosol inhaler 2 puff inhalation Q6H PRN alprazolam 2 mg tablet 2 mg PO TID PRN fenofibrate nanocrystallized [Tricor] 145 mg tablet 54 mg PO DAILY trazodone 100 mg tablet 100 mg PO HS Patient Comments: 12/31/21- per [facility] med list- take 1-2 tab po every night (100 mg- 200 mg) aspirin [Aspirin Low-Strength] 81 MG tablet,chewable 81 mg PO DAILY multivitamin Tablet 1 tab PO DAILY Discharge Instructions Instructions: Chest Pain, Adult ED, Dehydration, Adult ED, Heat Illness ED Additional Instructions: At this time no evidence of heart attack, initial troponin and 1 hour troponin are within normal limits. No evidence of fluid around your heart. No evidence of new infection new abnormality on your chest x-ray or head CT. Follow up with primary care provider/beef cattle specialist in 3-5 days to discuss follow-up outpatient echocardiogram or stress testing if chest pains persist.. Return to ED sooner if any worsening fever, worsening chest pain, shortness of breath fainting or concerns. Thank you for allowing us to care for you today. Drink lots of water and rest for the next few days. Referrals: [facility] [Outside, Cardiology] - 2 weeks Referral Note: ER follow up Call to make appt Clinical Impression: Chest pain Tahira Castrejon [Primary Care Provider, Medicine] - 5 days HPI General Mode of arrival: ambulatory. Date/Time Provider Initiated Documentation: 12/10/24 08:19. Limitations to Documentation: no limitations. Information obtained by: patient, RN notes reviewed and old records reviewed. HPI Narrative: 64-year-old female presents to the ER with a chief complaint of palpitations, dizziness left-sided facial and arm numbness which began on Tuesday reported that it lasted a few hours and then somewhat resolved. On arrival she is still complaining of little bit of chest pressure and mild numbness to her left arm. Associated with some intermittent shortness of breath denies any cough or productive cough, no fever chills no nausea vomiting diarrhea. She reports that she was gardening on Tuesday out in the hot sun for hours, endorses some beers, and began feeling symptoms. She does report that she has a filter in her heart from a hole in her heart. She describes the sensation as swishing around her heart. She did take a Xanax in her normal daily medications prior to arrival. No focal neurodeficits noted. No pronator drift no leg drop. Lungs are clear to auscultation bilaterally vital signs are stable, however of noted she is slightly bradycardic with a heart rate of 54. Patient does have a history of acute necrotizing pancreatitis, peptic ulcer disease, Lyme disease cardiomegaly atrial septal defect, pericarditis, pericardial effusion without cardiac tamponade. Related Data Home Medications ?Medication ?Instructions ?Recorded ?Confirmed aspirin 81 mg chewable tablet 81 mg PO DAILY 09/11/15 12/10/24 (Aspirin Low-Strength) multivitamin 1 tab PO DAILY 08/24/18 12/10/24 albuterol sulfate 90 mcg/actuation 2 puff inhalation Q6H PRN 12/31/21 12/10/24 aerosol inhaler (Ventolin HFA) alprazolam 2 mg tablet 2 mg PO TID PRN 12/31/21 12/10/24 fenofibrate nanocrystallized 145 54 mg PO DAILY 12/31/21 12/10/24 mg tablet (Tricor) hydrocortisone 2.5 % topical cream 1 applic topical BID PRN 12/31/21 12/10/24 ibuprofen 600 mg tablet 600 mg PO Q6H PRN 12/31/21 12/10/24 naloxone 4 mg/actuation nasal 4 mg intranasal Q2M PRN 12/31/21 12/10/24 spray (Narcan) ondansetron HCl 4 mg tablet 4 mg PO Q6H PRN 12/31/21 12/10/24 rosuvastatin 20 mg tablet 20 mg PO DAILY 12/31/21 12/10/24 sumatriptan succinate 100 mg tablet See Rx Instructions PO .COMPLEX 12/31/21 12/10/24 trazodone 100 mg tablet 100 mg PO HS 12/31/21 12/10/24 Allergies Allergy/AdvReac Type Severity Reaction Status Date / Time adhesive Allergy Unknown Unknown Verified 12/10/24 08:28 atorvastatin (From Lipitor) Allergy Unknown Verified 12/10/24 08:28 bupropion (From Wellbutrin) Allergy Unknown Verified 12/10/24 08:28 gabapentin Allergy Unknown Verified 12/10/24 08:28 pregabalin (From Lyrica) Allergy Unknown Verified 12/10/24 08:28 Sulfa (Sulfonamide Allergy Unknown Verified 12/10/24 08:28 Antibiotics) ssri Allergy Unknown Uncoded 12/10/24 08:28 General Stated Complaint: Palpitatns JONO: 3 Review of Systems All systems reviewed & are unremarkable except as noted in HPI and below Constitutional Constitutional: Denies headache(s) and Denies weakness ENT Ears, Nose, Mouth, and Throat: Reports dizziness and Denies headache(s) Cardiovascular Cardiovascular: Reports chest pain, Reports chest pain at rest, Reports rapid heart rate, Reports palpitations and Reports dyspnea on exertion Respiratory Respiratory: Reports dyspnea on exertion Musculoskeletal Musculoskeletal: Reports numbness and Reports tingling Neurologic Neurologic: Reports dizziness, Denies headache(s), Reports numbness, Reports tingling and Denies weakness Endocrine Endocrine: Reports palpitations Exam Narrative Exam Narrative: Constitutional: Alert and oriented x3. Appears stated age. Normal body habitus. Patient slightly sleepy from taking Xanax prior to arrival Head: Normocephalic, no trauma. Eyes: Pupils PERRL, Red reflex noted, EOM's intact. Eyelids symmetrical without lesions, discharge, or swelling. ENT: Bilateral TM's WNL, External ear normal to inspection, no mastoid TTP, swelling, or erythema, Nasal turbinates WNL, no nasal discharge. Normal dentition, Posterior pharynx WNL, no exudate. Chest: Bradycardic, no heart block, sinus bradycardia normal S1, S2, distal pulses intact. Resp: Lungs clear to auscultation bilaterally, no wheezes, rales, or rhonchi. Abdomen: Soft, non-distended, Normoactive bowel sounds all 4 quads. Musculoskeletal: Moves all 4 extremities without difficulty. Skin: No suspicious rashes or lesions. Capillary refill less than 2 sec. Neurologic: Cranial nerves II-XII intact. Alert and oriented x 3. Motor: No deficits noted. Sensory: Intact bilaterally all 4 extremities. No pronator drift, psychiatric nursing aide are equal bilaterally intact shrug bilaterally, no facial droop, no leg drop bilaterally. Hematologic/Lymphatic: No ecchymosis, no lymphadenopathy. Course Vital Signs Vital signs: Vital Signs Temperature 36.5 C 12/10/24 08:17 Pulse 66 12/10/24 08:17 Respiratory Rate 15 12/10/24 08:17 Blood Pressure 121/73 12/10/24 08:17 Pulse Oximetry 99 12/10/24 08:17 Temperature 36.5 C 12/10/24 08:17 Temperature Source Oral 12/10/24 08:17 Pulse 66 12/10/24 08:17 Respiratory Rate 15 12/10/24 08:17 Blood Pressure 121/73 12/10/24 08:17 Blood Pressure Position Sitting 12/10/24 08:17 Pulse Oximetry 99 12/10/24 08:17 Oxygen Delivery Method Room Air 12/10/24 08:17 Oxygen Flow Rate 0 12/10/24 08:17 Pain Level 4 12/10/24 08:17 Medical Decision Making 64-year-old female presents to the ER with a chief complaint of palpitations, dizziness left-sided facial and arm numbness which began on Tuesday reported that it lasted a few hours and then somewhat resolved. On arrival she is still complaining of little bit of chest pressure and mild numbness to her left arm. Associated with some intermittent shortness of breath denies any cough or productive cough, no fever chills no nausea vomiting diarrhea. She reports that she was gardening on Tuesday out in the hot sun for hours, endorses some beers, and began feeling symptoms. She does report that she has a filter in her heart from a hole in her heart. She describes the sensation as swishing around her heart. She did take a Xanax in her normal daily medications prior to arrival. No focal neurodeficits noted. No pronator drift no leg drop. Lungs are clear to auscultation bilaterally vital signs are stable, however of noted she is slightly bradycardic with a heart rate of 54. Patient does have a history of acute necrotizing pancreatitis, peptic ulcer disease, Lyme disease cardiomegaly atrial septal defect, pericarditis, pericardial effusion without cardiac tamponade. Workup ordered including CBC CMP serial troponins chest x-ray UA UDS and head CT. Differential diagnosis is wide, includes but not limited to [place], CAD, NSTEMI, OD, dehydration, CVA, including TIA, anxiety. EKG was reviewed by myself and Dr. Zamora ER attending, sinus bradycardia, old EKG available for review, no significant changes noted. Will consider bedside POCUS due to patient's history of pericarditis and pericardial effusion. Unofficial bedside POCUS echocardiogram obtained by myself to rule out pericardial effusion. None obviously seen. At this time serial troponin is pending. Patient is still complaining of some sharp stabbing pains to her chest will give 324 mg of aspirin. Workup is largely unremarkable, serial troponins within normal limits, chest x-ray shows no change from previous she has received a liter of fluid. Vital signs remained stable throughout the remainder of her stay. Blood pressure is improved at 132/74 heart rate 53 O2 sat 99% on room air. Patient much improved prior to discharge denies any chest pains. Will have patient follow-up with outpatient primary care provider and cardiology for possible follow-up echocardiogram and stress testing if needed. This text was generated using [employer] system, please disregard any oddities of phrase or misspellings. Medical Records Medical records reviewed: Yes I reviewed the patient's medical records. Imaging Data Radiologic Study: Imaging: CT Scan Radiologist's impression: Exam(s) CT HEAD WO EXAM: CT HEAD WO CLINICAL HISTORY: Dizziness, numbness. TECHNIQUE: Imaging Protocol: Axial computed tomography images with coronal and sagittal reformatted images were created and reviewed COMPARISON: CT HEAD WITHOUT CONTRAST from 11/04/2015 FINDINGS: There are no skull fractures. There is no fluid in the visualized paranasal sinuses. There is no evidence of intracranial hemorrhage, mass effect, or shift of midline structures. There are no extra-axial fluid collections. The ventricles are not enlarged or shifted and there is no blood within the ventricular system nor within the basal cisterns. IMPRESSION: No acute intracranial findings on this noninfused CT scan of the brain. Radiologic Study #2: Imaging: X-Ray Radiologist's impression: EXAM: XR CHEST 2V PA LATERAL CLINICAL HISTORY: Palpitations, dizziness. TECHNIQUE: 2D digital imaging was performed. COMPARISON: CR XR ribs BI include chest from 08/24/2018 FINDINGS: 2 views: Heart size is normal. Prosthetic prosthesis again noted. The mediastinum is not widened. Right lung is clear. There is platelike atelectasis or scarring in the lingular segment of the left lung but less than previous. No pulmonary edema. No pleural effusions. IMPRESSION: No acute pulmonary findings.Cardiac valve prosthesis again noted Lab Data Lab results reviewed: Yes I reviewed the patient's lab results. Labs: Laboratory Tests Range/Units 12/10/24 12/10/24 12/10/24 08:40 09:11 10:23 WBC (4.4-10.8) 10^3/uL 4.49 RBC (3.93-5.22) 10^6/uL 4.23 Hgb (11.2-15.7) g/dL 14.1 Hct (36.0-46.0) % 41.1 MCV (80-95) fL 97 H MCH (27.0-33.0) pg 33.3 H MCHC (32.0-36.0) % 34.3 RDW (11.7-14.6) % 12.1 Plt Count (130-400) 10^3/uL 222 MPV (8.0-11.0) fL 8.9 Immature Gran % % 0.2 Neutrophils % % 59.5 Lymphocytes % % 26.5 Monocytes % % 10.5 Eosinophils % % 2.4 Basophils % % 0.9 Nucleated RBC % (0.0-0.3) % 0.0 Absolute Neutrophils (1.2-6.7) 10^3/uL 2.67 Absolute Lymphocytes (1.2-3.4) 10^3/uL 1.19 L Absolute Monocytes (0.1-0.8) 10^3/uL 0.47 Absolute Eosinophils (0.0-0.7) 10^3/uL 0.11 Absolute Basophils (0.0-0.2) 10^3/uL 0.04 Sodium (136-145) mmol/L 142 Potassium (3.5-5.1) mmol/L 4.0 Chloride (98-107) mmol/L 106 Carbon Dioxide (21.0-32.0) mmol/L 28.8 Anion Gap (3-11) mmol/L 7.2 BUN (7-18) mg/dL 11 Creatinine (0.55-1.02) mg/dL 0.7 Est GFR (CKD-EPI 2020) (mL/min/1.73m2) 95.92 Glucose (74-106) mg/dL 92 Calcium (8.5-10.1) mg/dL 8.9 Magnesium (1.8-2.4) mg/dL 1.8 Total Bilirubin (0.2-1.0) mg/dL 0.6 AST (15-37) U/L 25 ALT (14-59) U/L 18 Alkaline Phosphatase (46-116) U/L 48 Troponin I (<or=51) ng/L 29 26 Total Protein (6.4-8.2) g/dL 6.2 L Albumin (3.4-5.0) g/dL 3.4 Lipase (<78) U/L 63 Add-On Test Request DONE [facility] All Active Problems (Updated 12/10/24 @ 12:17 by Carolin Thomas NP) Chest pain (Acute) Dehydration (Acute) Heat exhaustion (Acute) Bursitis of right shoulder (Acute) Tendinitis of long head of biceps brachii of right shoulder (Acute) Right shoulder pain (Acute) Acute necrotizing pancreatitis (Acute) Chronic narcotic dependence (Chronic) Pleural effusion (Acute) Pericarditis (Acute) Pericardial effusion without cardiac tamponade (Acute) Chest pain, pleuritic (Acute) Chronic pain syndrome (Chronic) Anemia (Acute) Myalgia (Chronic) Peptic ulcer disease (Chronic) H/o Lyme disease (Chronic) Cardiomegaly (Chronic) Atrial septal defect (Chronic) Fracture dislocation of joint (Acute) Closed nondisplaced fracture of styloid process of right ulna (Acute) Other intraarticular fracture of lower end of right radius, initial encounter for closed fracture (Acute) Medical History Systemic candidiasis Primary fibromyalgia syndrome Chronic fatigue syndrome Chronic Lyme Disease Surgical History Oophrectomy, Right ? year secondary to torsion Cervical Conization/LEEP ? year and also cryo cauterizations ? Pap diagnosis Social History Smoking/Tobacco Use Status: Current every day Tobacco Type: e-cigarettes Smoking risk assessment performed?: Yes Alcohol Intake: current Alcohol Intake frequency: holidays/special occasions only Alcohol type: beer Drug use: Never Substance use type: does not use Housing: house Current gender identity: female Do you feel safe at home: Yes Do you feel safe in your relationship?: Yes Female Reproductive History Menstrual Age of Menarche: 17 Duration of menses: 6-7 days control method: none History History 3 Para 0 Hx # Term Pregnancies Multiple births Hx # Pregnancies Ectopic pregnancies AB induced Hx Number of Living Children AB spontaneous 3 PAWSS Have you Been Recently Intoxicated or Drunk Within the Last 30 days?: No Have you Ever Experienced Previous Episodes of Alcohol Withdrawal?: No Have you ever Experienced Withdrawal Seizures?: No Have you ever Experienced Delirium Tremens(DT)s?: No Have you ever undergone Alcohol Rehabilitation Treatment (i.e, inpt ot outpatient treatment programs)?: No Have you ever Experienced Blackouts?: No Have you ever Combined Alcohol with other Downers within the last 90 days?: No Have you ever Combined Alcohol with any other Substance of Abuse during the last 90 days?: No Result: 0
[2024-12-10 08:52] LABS: Abs Immature Grans 0.01 10^3/uL (0.0-0.06); HCT 41.1 % (36.0-46.0); HGB 14.1 g/dL (11.2-15.7); Immature Grans % 0.2 %; MCH 33.3 pg (27.0-33.0); MCHC 34.3 % (32.0-36.0); MCV 97 fL (80-95); MPV 8.9 fL (8.0-11.0); Platelet Count 222 10^3/uL (130-400); RBC 4.23 10^6/uL (3.93-5.22); RDW 12.1 % (11.7-14.6); RDW-SD 43.5 fL; WBC 4.49 10^3/uL (4.4-10.8)
[2024-12-10 09:11] LABS: Lab Add On Test DONE
[2024-12-10 09:19] LABS: Lipase 63 U/L (<78)
[2024-12-10 09:30] LABS: ALT 18 U/L (14-59); AST 25 U/L (15-37); Albumin 3.4 g/dL (3.4-5.0); Alkaline Phosphatase 48 U/L (46-116); Anion Gap 7.2 mmol/L (3-11); BUN 11 mg/dL (7-18); Bilirubin, Total 0.6 mg/dL (0.2-1.0); CO2 28.8 mmol/L (21.0-32.0); Calcium 8.9 mg/dL (8.5-10.1); Chloride 106 mmol/L (98-107); Estimated GFR 95.92 (mL/min/1.73m2); Glucose 92 mg/dL (74-106); Magnesium 1.8 mg/dL (1.8-2.4); Potassium 4.0 mmol/L (3.5-5.1); Sodium 142 mmol/L (136-145); Total Protein 6.2 g/dL (6.4-8.2); Troponin I 29 ng/L (<or=51)
[2024-12-10] MEDS: Normal Saline 1,000 ML 1000 ML IV (10:15)
[2024-12-10] MEDS: Aspirin 81 MG CHEW 324 MG CH (10:55)
[2024-12-10 11:46] LABS: Troponin I 26 ng/L (<or=51)
== END 2024-12-10 12:39 | disposition home or self-care (01) ==
PROVIDERS: Emergency Provider Registered Nurse Emergency; PCP Family Medicine
DX: E86.0 Dehydration (principal); R07.9 Chest pain, unspecified; T67.5XXA Heat exhaustion, unspecified, initial encounter; R00.1 Bradycardia, unspecified; F17.210 Nicotine dependence, cigarettes, uncomplicated; Z79.82 Long term (current) use of aspirin
CPT/HCPCS: 80053; 83690; 93005; 99285; 70450; 71046; 83735; 84484; 85025; 93010; 99284

== ENCOUNTER 2025-01-30 23:28 | Inpatient (IN) | payer MEDICARE, SELFPAY ==
--- NOTE | 2025-01-30 23:15 | RT.EKG_ITS ---
APPROVED REPORT Exam: Resting ECG Reason for Exam: overdose Patient Location: E HR:61 bpm ECG Measurements Heart Rate 61 AXIS MN 174 P 56 QRSd 90 QRS -1 QT 470 T 50 QTc 473 Conclusion Sinus rhythm...normal P axis, V-rate 60- 99 Nonspecific T abnrm, anterolateral leads...T <-0.10mV, I aVL V2-V6 no ST segment or T wave abnormalities to suggest occlusive NE
[2025-01-30 23:32] VITALS: BP 144/72; PULSE 58; RESP 9; TEMP 35.8; O2SAT 93
[2025-01-30 23:44] LABS: BE (Venous) -1 mmol/L (-2-3); HCO3 (Venous) 25 mmol/L (23-28); O2 Sat (Venous) 97 %; TCO2 (Venous) 22 mmol/L (24-29); pCO2 (Venous) 48 mmHg (41-51); pO2 (Venous) 89 mmHg
[2025-01-30 23:46] LABS: Abs Immature Grans 0.00 10^3/uL (0.0-0.06); HCT 42.5 % (36.0-46.0); HGB 14.8 g/dL (11.2-15.7); Immature Grans % 0.0 %; MCH 34.0 pg (27.0-33.0); MCHC 34.8 % (32.0-36.0); MCV 98 fL (80-95); MPV 9.0 fL (8.0-11.0); Platelet Count 184 10^3/uL (130-400); RBC 4.35 10^6/uL (3.93-5.22); RDW 11.8 % (11.7-14.6); RDW-SD 42.8 fL; WBC 4.49 10^3/uL (4.4-10.8)
[2025-01-31] VITALS (84 sets, daily range): BP systolic 82–146; BP diastolic 49–105; PULSE 43–84; RESP 5–25; TEMP 35.6–36.9; O2SAT 90–100
[2025-01-31 00:04] LABS: ALT 30 U/L (14-59); AST 68 U/L (15-37); Albumin 3.9 g/dL (3.4-5.0); Alkaline Phosphatase 55 U/L (46-116); Anion Gap 9.1 mmol/L (3-11); BUN 11 mg/dL (7-18); Bilirubin, Total 0.6 mg/dL (0.2-1.0); CO2 25.9 mmol/L (21.0-32.0); Calcium 8.9 mg/dL (8.5-10.1); Chloride 107 mmol/L (98-107); Estimated GFR 99.55 (mL/min/1.73m2); Glucose 94 mg/dL (74-106); Magnesium 1.9 mg/dL (1.8-2.4); Potassium 4.0 mmol/L (3.5-5.1); Sodium 142 mmol/L (136-145); Total Protein 6.9 g/dL (6.4-8.2)
[2025-01-31 00:13] LABS: Acetaminophen < 2 ug/mL (10-30); Salicylate 3.2 mg/dL (<2.8)
--- NOTE | 2025-01-31 00:19 | W.ED.GENAD ---
Discharge Plan Disposition Patient Disposition: Admit to [facility] Condition: Critical Discharge Details Clinical Impression: Overdose, Acute hypoxemic respiratory failure, Bradycardia, Suicide attempt Primary Care Provider: Tahira Castrejon ED Provider: Batsheva Horan Home Meds and New Rx's Prescriptions: No Action ondansetron HCl 4 mg tablet 4 mg PO Q6H PRN sumatriptan succinate 100 mg tablet See Rx Instructions PO .COMPLEX Rx Instructions: take 1 tab at onset of headache; if no relief, may repeat 1 tab after at least 2 hrs; max = 2 tabs/24 hrs PO ibuprofen 600 mg tablet 600 mg PO Q6H PRN hydrocortisone 2.5 % cream 1 applic topical BID PRN naloxone [Narcan] 4 mg/actuation spray,non-aerosol 4 mg intranasal Q2M PRN Rx Instructions: spray 1 dose into ONE nostril; alternate nostrils w each dose until help arrives rosuvastatin 20 mg tablet 20 mg PO DAILY albuterol sulfate [Ventolin HFA] 90 mcg/actuation HFA aerosol inhaler 2 puff inhalation Q6H PRN alprazolam 2 mg tablet 2 mg PO TID PRN fenofibrate nanocrystallized [Tricor] 145 mg tablet 54 mg PO DAILY trazodone 100 mg tablet 100 mg PO HS Patient Comments: 12/31/21- per [facility] med list- take 1-2 tab po every night (100 mg- 200 mg) aspirin [Aspirin Low-Strength] 81 MG tablet,chewable 81 mg PO DAILY pantoprazole 40 mg tablet,delayed release (DR/EC) 40 mg PO DAILY Patient Comments: TAKE ONE TABLET BY MOUTH EVERY DAY multivitamin Tablet 1 tab PO DAILY HPI General Mode of arrival: EMS. Date/Time Provider Initiated Documentation: 01/30/25 23:35. Limitations to Documentation: no limitations. Information obtained by: patient, EMS and old records reviewed. HPI Narrative: 64yo F with hx depression, anxiety, migraines, chronic malloy, presenting via EMS after intentional overdose. Reportedly took 10 trazadone (unknown dose), 10 5mg xanax, and 10 10mg oxycodone in an attempt to end her life. States she told her friend emre's going to be the end of the road for me and then took the pills. EMS was called immediately after this, ingestion ~30 minutes prior to arrival. Currently feels sleepy. Denies any chest pain, shortness of breath, abdominal pain, nasuea, vomiting. Denies any pain; with what I took, not a chance, does deny any pain today prior to taking the medications. States she was in her usual state of health prior to this event tonight. Related Data Home Medications ?Medication ?Instructions ?Recorded ?Confirmed aspirin 81 mg chewable tablet 81 mg PO DAILY 09/11/15 01/30/25 (Aspirin Low-Strength) multivitamin 1 tab PO DAILY 08/24/18 01/30/25 albuterol sulfate 90 mcg/actuation 2 puff inhalation Q6H PRN 12/31/21 01/30/25 aerosol inhaler (Ventolin HFA) alprazolam 2 mg tablet 2 mg PO TID PRN 12/31/21 01/30/25 fenofibrate nanocrystallized 145 54 mg PO DAILY 12/31/21 01/30/25 mg tablet (Tricor) hydrocortisone 2.5 % topical cream 1 applic topical BID PRN 12/31/21 01/30/25 ibuprofen 600 mg tablet 600 mg PO Q6H PRN 12/31/21 01/30/25 naloxone 4 mg/actuation nasal 4 mg intranasal Q2M PRN 12/31/21 01/30/25 spray (Narcan) ondansetron HCl 4 mg tablet 4 mg PO Q6H PRN 12/31/21 01/30/25 rosuvastatin 20 mg tablet 20 mg PO DAILY 12/31/21 01/30/25 sumatriptan succinate 100 mg tablet See Rx Instructions PO .COMPLEX 12/31/21 01/30/25 trazodone 100 mg tablet 100 mg PO HS 12/31/21 01/30/25 pantoprazole 40 mg tablet,delayed 40 mg PO DAILY 01/30/25 01/30/25 release Allergies Allergy/AdvReac Type Severity Reaction Status Date / Time adhesive Allergy Unknown Unknown Verified 01/30/25 23:37 atorvastatin (From Lipitor) Allergy Unknown Verified 01/30/25 23:37 bupropion (From Wellbutrin) Allergy Unknown Verified 01/30/25 23:37 gabapentin Allergy Unknown Verified 01/30/25 23:37 pregabalin (From Lyrica) Allergy Unknown Verified 01/30/25 23:37 Sulfa (Sulfonamide Allergy Unknown Verified 01/30/25 23:37 Antibiotics) ssri Allergy Unknown Uncoded 01/30/25 23:37 General Stated Complaint: Suicide-Atempt JONO: 2 Review of Systems Narrative: see HPI Exam Narrative Exam Narrative: General: Arousable to voice, in no acute distress. Head: Normocephalic, atraumatic Neck: Trachea midline, ?Neck supple. ENT: ?MMM.? No oropharygeal lesions or exudate. Cardiac: ?RRR, no murmurs appreciated Resp: No respiratory distress. CTAB. Abd: ?Soft, non-distended, nontender : ?No suprapubic tenderness. Extremities: ?No deformities.? No peripheral edema. Neuro: ? GCS 14 (E3 V5 M6).? PERRL, pinpoint.? EOMI.? Fluent speech, no dysarthria. Motor- 5/5 strength symmetric bilateral upper and lower extremities Sensation- ?Intact to light touch and symmetric multiple dermatomes including upper and lower extremities Coordination- No dysmetria on finger to nose Reflexes- 2/4 achilles & patellar, no clonus Gait/station: ?not tested Course Vital Signs Vital signs: Vital Signs Temperature 35.8 C L 01/30/25 23:32 Pulse 58 L 01/30/25 23:32 Respiratory Rate 9 L 01/30/25 23:32 Blood Pressure 144/72 H 01/30/25 23:32 Pulse Oximetry 93 01/30/25 23:32 Temperature 35.8 C L 01/30/25 23:32 Temperature Source Temporal Artery Scan 01/30/25 23:32 Pulse 58 L 01/30/25 23:32 Respiratory Rate 9 L 01/30/25 23:32 Blood Pressure 144/72 H 01/30/25 23:32 Blood Pressure Position Sitting 01/30/25 23:32 Pulse Oximetry 93 01/30/25 23:32 Oxygen Delivery Method Room Air 01/30/25 23:32 Oxygen Flow Rate 0 01/30/25 23:32 Comment desatting to 89, put on 2 lpm n/c 01/30/25 23:32 Lab/Test Results Lab/Test Results: Laboratory Tests Range/Units 01/30/25 23:35 WBC (4.4-10.8) 10^3/uL 4.49 RBC (3.93-5.22) 10^6/uL 4.35 Hgb (11.2-15.7) g/dL 14.8 Hct (36.0-46.0) % 42.5 MCV (80-95) fL 98 H MCH (27.0-33.0) pg 34.0 H MCHC (32.0-36.0) % 34.8 RDW (11.7-14.6) % 11.8 Plt Count (130-400) 10^3/uL 184 MPV (8.0-11.0) fL 9.0 Immature Gran % % 0.0 Neutrophils % % 60.3 Lymphocytes % % 31.0 Monocytes % % 6.2 Eosinophils % % 1.8 Basophils % % 0.7 Nucleated RBC % (0.0-0.3) % 0.0 Absolute Neutrophils (1.2-6.7) 10^3/uL 2.71 Absolute Lymphocytes (1.2-3.4) 10^3/uL 1.39 Absolute Monocytes (0.1-0.8) 10^3/uL 0.28 Absolute Eosinophils (0.0-0.7) 10^3/uL 0.08 Absolute Basophils (0.0-0.2) 10^3/uL 0.03 VBG pH (7.31-7.41) 7.33 VBG pCO2 (41-51) mmHg 48 VBG pO2 mmHg 89 VBG HCO3 (23-28) mmol/L 25 VBG Total CO2 (24-29) mmol/L 22 L VBG O2 Saturation % 97 VBG Base Excess (-2-3) mmol/L -1 Sodium (136-145) mmol/L 142 Potassium (3.5-5.1) mmol/L 4.0 Chloride (98-107) mmol/L 107 Carbon Dioxide (21.0-32.0) mmol/L 25.9 Anion Gap (3-11) mmol/L 9.1 BUN (7-18) mg/dL 11 Creatinine (0.55-1.02) mg/dL 0.6 Est GFR (CKD-EPI 2020) (mL/min/1.73m2) 99.55 Glucose (74-106) mg/dL 94 Calcium (8.5-10.1) mg/dL 8.9 Magnesium (1.8-2.4) mg/dL 1.9 Total Bilirubin (0.2-1.0) mg/dL 0.6 AST (15-37) U/L 68 H ALT (14-59) U/L 30 Alkaline Phosphatase (46-116) U/L 55 Total Protein (6.4-8.2) g/dL 6.9 Albumin (3.4-5.0) g/dL 3.9 Salicylates (<2.8) mg/dL 3.2 Acetaminophen (10-30) ug/mL < 2 Ethyl Alcohol (<10) mg/dL 65.9 H Medical Decision Making 64yo F with hx depression, anxiety, migraines, chronic malloy, presenting via EMS after intentional overdose. Reportedly took 10 trazadone (unknown dose), 10 5mg xanax, and 10 10mg oxycodone in an attempt to end her life. Somonlent but arousable to voice on arrival, RR 8-12, mild bradycardia with rate in 50's-60's. O2 sat normal when awake and talking, requires 2-3LNC to maintain sat >94% when sleeping. Pinpoint pupils. Non-focal neurologic exam. Exam is consistent with reported ingestions (opiates/benzos/trazadone with bradycardia). Considered narcan however she is maintaining her airway, arousable, and likely has component of opiate dependence so must consider possibility of precipitating acute withdrawal. Will monitor closely and check VBG. EKG NSR in 60's, acceptable intervals, no acute ischemic Labs reviewed as below, CBC reassuring with no leukocytosis or anemia, CMP with no actionable abnormalities, Mg normal, VBG reassuring with no hypercapnea, serum tylenol/salicylate negative, ETOH _ at 65. UA with 10-20 WBCs suggestive of possible infection (pt denies urinary symptoms to me); will give dose of IV ceftriaxone here for coverage. Sent for culture. Discussed with poison control, agree with symptomatic management, anticipate 8-12 hours for symptoms to resolve. Discussed with [facility] hospitalist Dr. Moser; pt accepted to medicine service. Awaiting admission orders. Lab Data Lab results reviewed: Yes I reviewed the patient's lab results. Labs: 01/31/25 00:30 Urine - Reflex from Ua Urine Culture - Pending Laboratory Tests Range/Units 01/30/25 01/31/25 23:35 00:30 WBC (4.4-10.8) 10^3/uL 4.49 RBC (3.93-5.22) 10^6/uL 4.35 Hgb (11.2-15.7) g/dL 14.8 Hct (36.0-46.0) % 42.5 MCV (80-95) fL 98 H MCH (27.0-33.0) pg 34.0 H MCHC (32.0-36.0) % 34.8 RDW (11.7-14.6) % 11.8 Plt Count (130-400) 10^3/uL 184 MPV (8.0-11.0) fL 9.0 Immature Gran % % 0.0 Neutrophils % % 60.3 Lymphocytes % % 31.0 Monocytes % % 6.2 Eosinophils % % 1.8 Basophils % % 0.7 Nucleated RBC % (0.0-0.3) % 0.0 Absolute Neutrophils (1.2-6.7) 10^3/uL 2.71 Absolute Lymphocytes (1.2-3.4) 10^3/uL 1.39 Absolute Monocytes (0.1-0.8) 10^3/uL 0.28 Absolute Eosinophils (0.0-0.7) 10^3/uL 0.08 Absolute Basophils (0.0-0.2) 10^3/uL 0.03 VBG pH (7.31-7.41) 7.33 VBG pCO2 (41-51) mmHg 48 VBG pO2 mmHg 89 VBG HCO3 (23-28) mmol/L 25 VBG Total CO2 (24-29) mmol/L 22 L VBG O2 Saturation % 97 VBG Base Excess (-2-3) mmol/L -1 Sodium (136-145) mmol/L 142 Potassium (3.5-5.1) mmol/L 4.0 Chloride (98-107) mmol/L 107 Carbon Dioxide (21.0-32.0) mmol/L 25.9 Anion Gap (3-11) mmol/L 9.1 BUN (7-18) mg/dL 11 Creatinine (0.55-1.02) mg/dL 0.6 Est GFR (CKD-EPI 2020) (mL/min/1.73m2) 99.55 Glucose (74-106) mg/dL 94 Calcium (8.5-10.1) mg/dL 8.9 Magnesium (1.8-2.4) mg/dL 1.9 Total Bilirubin (0.2-1.0) mg/dL 0.6 AST (15-37) U/L 68 H ALT (14-59) U/L 30 Alkaline Phosphatase (46-116) U/L 55 Total Protein (6.4-8.2) g/dL 6.9 Albumin (3.4-5.0) g/dL 3.9 Urine Color (Yellow) Yellow Urine Clarity (Clear) Clear Urine pH (5-8) 7.0 Ur Specific [place] (1.005-1.025) 1.010 Urine Protein (Neg-Trace) mg/dL Negative Urine Ketones (Negative) mg/dL Negative Urine Blood (Negative) Trace-intact H Urine Nitrite (Negative) Negative Urine Bilirubin (Negative) Negative Urine Urobilinogen (Up to 0.2) mg/dL 0.2 Ur Leukocyte Esterase (Negative) Trace H Urine RBC (0-2) HPF 0-2 Urine WBC (0-5) HPF 10-20 H Ur Epithelial Cells (Negative) HPF Rare Urine Crystals (Negative) HPF Negative Urine Bacteria (Negative) HPF Rare Urine Casts (Negative) LPF Negative Urine Mucus (Negative) Negative Ur Culture Indicated? Yes Urine Glucose (Negative) mg/dL Negative Urine HCG, Qual Negative Salicylates (<2.8) mg/dL 3.2 Urine Opiates Screen (Negative) Negative Urine Methadone Screen (Negative) Negative Acetaminophen (10-30) ug/mL < 2 Ur Barbiturates Screen (Negative) Negative Ur Tricyclics Screen (Negative) Negative Ur Amphetamines Screen (Negative) Negative U Benzodiazepines Scrn (Negative) Positive A Urine Cocaine Screen (Negative) Negative Ur THC Screen (Negative) Negative Ethyl Alcohol (<10) mg/dL 65.9 H Critical Care Time Critical Care Time Critical Care Time: Yes Total Critical Care Time: 32 Attestation: Due to a high probability of clinically significant, life threatening deterioration, the patient required my highest level of preparedness to intervene emergently and I personally spent this critical care time directly and personally managing the patient. This critical care time included obtaining a history; examining the patient; pulse oximetry; ordering and review of studies; arranging urgent treatment with development of a management plan; evaluation of patient's response to treatment; frequent reassessment; and, discussions with other providers. This critical care time was performed to assess and manage the high probability of imminent, life-threatening deterioration that could result in multi-organ failure. It was exclusive of separately billable procedures and treating other patients PFSH All Active Problems (Updated 01/31/25 @ 01:52 by Batsheva Horan MD) Suicide attempt (Acute) Bradycardia (Acute) Acute hypoxemic respiratory failure (Acute) Overdose (Acute) Bursitis of right shoulder (Acute) Tendinitis of long head of biceps brachii of right shoulder (Acute) Right shoulder pain (Acute) Acute necrotizing pancreatitis (Acute) Chronic narcotic dependence (Chronic) Pleural effusion (Acute) Pericarditis (Acute) Pericardial effusion without cardiac tamponade (Acute) Chest pain, pleuritic (Acute) Chronic pain syndrome (Chronic) Anemia (Acute) Myalgia (Chronic) Peptic ulcer disease (Chronic) H/o Lyme disease (Chronic) Cardiomegaly (Chronic) Atrial septal defect (Chronic) Fracture dislocation of joint (Acute) Closed nondisplaced fracture of styloid process of right ulna (Acute) Other intraarticular fracture of lower end of right radius, initial encounter for closed fracture (Acute) Medical History Systemic candidiasis Primary fibromyalgia syndrome Chronic fatigue syndrome Chronic Lyme Disease Surgical History Oophrectomy, Right ? year secondary to torsion Cervical Conization/LEEP ? year and also cryo cauterizations ? Pap diagnosis Social History Smoking/Tobacco Use Status: Current every day Tobacco Type: e-cigarettes Smoking risk assessment performed?: Yes Alcohol Intake: current Alcohol Intake frequency: holidays/special occasions only Alcohol type: beer Drug use: Never Substance use type: does not use Housing: house Current gender identity: female Do you feel safe at home: Yes Do you feel safe in your relationship?: Yes Female Reproductive History Menstrual Age of Menarche: 17 Duration of menses: 6-7 days control method: none History History 3 Para 0 Hx # Term Pregnancies Multiple births Hx # Pregnancies Ectopic pregnancies AB induced Hx Number of Living Children AB spontaneous 3
[2025-01-31 00:43] LABS: Glucose Negative (Negative)
[2025-01-31 00:50] LABS: C & S Indicated? Yes; HCG Qual (Urine) Negative; RBC 0-2 HPF (0-2)
[2025-01-31 01:03] LABS: Cannabinoids THC Negative (Negative); METHADONE URINE SCREEN Negative (Negative)
[2025-01-31] MEDS: cefTRIAXone 1 GM/50 ML BAG IVPB (01:10)
--- NOTE | 2025-01-31 01:45 | RT.EKG_ITS ---
APPROVED REPORT Exam: Resting ECG Reason for Exam: bradycardia Patient Location: E HR:45 bpm ECG Measurements Heart Rate [address] 185 P 29 QRSd 91 QRS -2 QT 567 T 60 QTc 490 Conclusion Sinus bradycardia...rate< [address] segment or T wave abnormalities to suggest occlusive IL QTc slighly increased from prior
--- NOTE | 2025-01-31 01:49 | W.PM.HP.N ---
Date of service: 01/31/25 Time of Service: 01:49 Assessment and Plan Assessment and plan (1) Suicide attempt: Start date: 01/31/25 Status: Acute Assessment and plan: This is a 64-year-old lady with chronic pain and anxiety with depression recently not receiving oxycodone for pain but having Xanax 2 mg, 84 tablets prescribed every 28 days. She called her friend to state that this was the end of the road and then took supposedly 10 tablets of her trazodone 100 mg, oxycodone 5 mg for someone else's 10 mg tablets, and Xanax 2 mg tablets all at 1 time and attempt to put herself permanently to sleep. She has verbal conversation about her attempt being the wish to and states that she is angry with her boyfriend who is in the same house as her when she overdosed but is unaware whether he is knowledgeable of her overdose and hospitalization. She also has a victimized affect with her chronic pain and issues for many years with dysfunction from pain. She denies any IV or illicit drug use with urine drug screen only showing benzodiazepines which is appropriate with her taking only oxycodone as a narcotic. Expanded drug screen was sent and patient does have a sitter with plans for mental health consultation when she is medically cleared. This may take up to 12 hours according to poison control who also wants monitoring of her heart rhythm with trazodone overdose and questionable amount of tablets compared to her full month's prescriptions. She does appear to receive her prescriptions at the first of the month which would leave her fewer tablets at this time. She will be admitted to the ICU with cardiac monitoring and observation of respiratory status with O2 supplementation as needed. She will be n.p.o. with IV hydration. (2) Acute hypoxemic respiratory failure: Start date: 01/31/25 Status: Acute Assessment and plan: Patient is breathing on her own and only mildly hypoxic with no CO2 retention. VBG was consistent with this. Continue monitoring in ICU as patient awakens over the next 12 hours. (3) Drug use disorder: Status: Acute Assessment and plan: Patient does have a problem missed taking her prescribed medications though she denies any street or illicit drug use. She is at risk and expanded urine drug screen will be sent to assess for other substances which may have been taken. (4) Depression with anxiety: Status: Chronic Assessment and plan: Patient admits that she has anxiety but not depression though she is on trazodone. She appears depressed. She also appears agitated and angry about her chronic pain and difficult relationship at this time. She has poor coping skills. She is at risk for self treatment. She denies any previous abusive situations or PTSD. Her medications are on hold at this time. (5) Bradycardia: Start date: 01/31/25 Status: Acute Assessment and plan: Most likely secondary to trazodone overdose and cardiac monitoring with observation for QT prolongation and other dysrhythmias while she recovers over the next 12 hours. Her dosing of trazodone did not appear to be that high and Poison Control was consulted. They advised observation until she awakens. (6) Overdose: Start date: 01/31/25 Status: Acute Assessment and plan: This appears to be an intentional overdose though not large numbers of tablets compared to her full months prescription. It appeared to be spontaneous rather than planned. This may be more of an attention seeking situation and annual health can evaluate and advise. (7) Chronic pain syndrome: Status: Chronic Assessment and plan: Status post Lyme disease and fibromyalgia with multiple arthritic complaints on her problem list. She is presently not prescribed narcotics with the last prescription in January 2024. These were oxycodone IR 5 mg. (8) Cardiomegaly: Status: Chronic Assessment and plan: Patient is on no medication for this problem at this time. Monitor heart for dysrhythmias. (9) GERD (gastroesophageal reflux disease): Status: Chronic Assessment and plan: Continue PPI. (10) COPD (chronic obstructive pulmonary disease): Status: Chronic Assessment and plan: Continue rescue inhaler as needed. History of Present Illness History of Present Illness Chief Complaint: Patient presents for ongoing medications including old oxycodone. Narrative: This is a 64-year-old female patient with history of chronic pain syndrome pain with a diagnosis of Lyme disease when she was in her 30s which eventually was cleared after 20 years. She also has had multiple arthritic pains and injuries in the past and has been prescribed oxycodone as recent as January 2024 but not since that time. She recently has been on Xanax 2 mg twice daily for anxiety and review of the PDMP shows monthly prescriptions for 24 tablets. She adamantly denies any street drug use or IV drug use though she does have Narcan on her prescription list. This could be a carryover from her 2023 prescriptions for oxycodone IR 5 mg with 56 tablets prescribed monthly. Just prior to presentation to the ED, the patient was talking to her friend on the phone and told her that this was the end and must have indicated that she was taking her medications to kill herself prompting the girlfriend to call EMS. EMS arrived at the scene within 30 minutes of the patient ingesting 10 tablets of trazodone 100 mg, 10 tablets of her oxycodone which was most likely 5 mg if hers but the ED physician stated they were 10 mg, and 10 tablets of her Xanax 2 mg tablets though the ED provider stated that these were 5 mg. Patient was arousable in the ED but drowsy and even during my conversation continue to have slurred speech being at times inappropriate with her answers as if more angry at her boyfriend then wanting to kill herself. She did tell her friend that she was doing this overdose which also may indicate more attention-seeking than true drug overdose. Her taking only 10 tablets of each also seems to be less likely that this was a true suicide attempt. She states that she does have a boyfriend with whom she lives and that they are having troubles. She does not care if he knew she was in the hospital at this time though he does sleep in the same house. She appears to have a victim affect when reviewing her history of chronic pain syndrome and at times appears somewhat angry. She does understand she need to be watched in the hospital for cardiac dysrhythmias because of her trazodone and she needs to awaken before she can go home. She is slightly hypoxic when she is sleeping but requiring minimal O2 supplementation at 1 L/min per nasal cannula. She is not voiding and will have a Alexander catheter. Poison control was called and advised watching for QT prolongation and dysrhythmias with her trazodone as well as close monitoring of her airway and oxygenation while she awakens over the next 12 hours. She does have a sitter and mental health will be consulted when she is medically cleared. She is a full code. Review of Systems Narrative: 13 point review of system otherwise unrevealing or stable the patient drowsy during conversation but mostly answering questions appropriately. She denies any pain prior to her overdose. She is unable to answer whether she has had prior suicidal thoughts with purposeful withholding conversation after asking this question. PFSH All Active Problems (Updated 01/31/25 @ 01:57 by Elver Valdez) COPD (chronic obstructive pulmonary disease) (Chronic) GERD (gastroesophageal reflux disease) (Chronic) Depression with anxiety (Chronic) Drug use disorder (Acute) Suicide attempt (Acute) Bradycardia (Acute) Acute hypoxemic respiratory failure (Acute) Overdose (Acute) Bursitis of right shoulder (Acute) Tendinitis of long head of biceps brachii of right shoulder (Acute) Right shoulder pain (Acute) Acute necrotizing pancreatitis (Acute) Chronic narcotic dependence (Chronic) Pleural effusion (Acute) Pericarditis (Acute) Pericardial effusion without cardiac tamponade (Acute) Chest pain, pleuritic (Acute) Chronic pain syndrome (Chronic) Anemia (Acute) Myalgia (Chronic) Peptic ulcer disease (Chronic) H/o Lyme disease (Chronic) Cardiomegaly (Chronic) Atrial septal defect (Chronic) Fracture dislocation of joint (Acute) Closed nondisplaced fracture of styloid process of right ulna (Acute) Other intraarticular fracture of lower end of right radius, initial encounter for closed fracture (Acute) Medical History Systemic candidiasis Primary fibromyalgia syndrome Chronic fatigue syndrome Chronic Lyme Disease Surgical History Oophrectomy, Right ? year secondary to torsion Cervical Conization/LEEP ? year and also cryo cauterizations ? Pap diagnosis Social History Smoking/Tobacco Use Status: Current every day Tobacco Type: e-cigarettes Smoking risk assessment performed?: Yes Alcohol Intake: current Alcohol Intake frequency: holidays/special occasions only Alcohol type: beer Drug use: Never Substance use type: does not use Housing: house Current gender identity: female Do you feel safe at home: Yes Do you feel safe in your relationship?: Yes Female Reproductive History Menstrual Age of Menarche: 17 Duration of menses: 6-7 days control method: none History History 3 Para 0 Hx # Term Pregnancies Multiple births Hx # Pregnancies Ectopic pregnancies AB induced Hx Number of Living Children AB spontaneous 3 Meds Allergies and Home Medications Allergies Allergy/AdvReac Type Severity Reaction Status Date / Time adhesive Allergy Unknown Unknown Verified 08/27/25 23:37 atorvastatin (From Lipitor) Allergy Unknown Verified 01/30/25 23:37 bupropion (From Wellbutrin) Allergy Unknown Verified 01/30/25 23:37 gabapentin Allergy Unknown Verified 01/30/25 23:37 pregabalin (From Lyrica) Allergy Unknown Verified 01/30/25 23:37 Sulfa (Sulfonamide Allergy Unknown Verified 01/30/25 23:37 Antibiotics) ssri Allergy Unknown Uncoded 01/30/25 23:37 Home Medications ?Medication ?Instructions ?Recorded ?Confirmed ?Type aspirin 81 mg chewable tablet 81 mg PO DAILY 09/11/15 01/30/25 History (Aspirin Low-Strength) multivitamin 1 tab PO DAILY 08/24/18 01/30/25 History albuterol sulfate 90 mcg/actuation 2 puff inhalation Q6H PRN 12/31/21 01/30/25 History aerosol inhaler (Ventolin HFA) alprazolam 2 mg tablet 2 mg PO TID PRN 12/31/21 01/30/25 History fenofibrate nanocrystallized 145 54 mg PO DAILY 12/31/21 01/30/25 History mg tablet (Tricor) hydrocortisone 2.5 % topical cream 1 applic topical BID PRN 12/31/21 01/30/25 History ibuprofen 600 mg tablet 600 mg PO Q6H PRN 12/31/21 01/30/25 History naloxone 4 mg/actuation nasal 4 mg intranasal Q2M PRN 12/31/21 01/30/25 History spray (Narcan) ondansetron HCl 4 mg tablet 4 mg PO Q6H PRN 12/31/21 01/30/25 History rosuvastatin 20 mg tablet 20 mg PO DAILY 12/31/21 01/30/25 History sumatriptan succinate 100 mg tablet See Rx Instructions PO .COMPLEX 12/31/21 01/30/25 History trazodone 100 mg tablet 100 mg PO HS 12/31/21 01/30/25 History pantoprazole 40 mg tablet,delayed 40 mg PO DAILY 01/30/25 01/30/25 History release Exam Narrative Exam Narrative: General: Patient appears appropriate for age, she is drowsy with slurred speech falling asleep during conversation. She is alert and oriented at least to person and place. She is in no acute distress. At times she has inappropriate affect answering serious questions about suicidal thoughts. HEENT: Normocephalic, eyes with pupils small but reactive and are equal. Extraocular movement intact and sclera anicteric. Oropharynx with dry mucosa and fair dentition. Neck: Supple without JVD. Back: Stooped posture without CVA tenderness. Lungs: Decreased inspiratory effort but clear to auscultation percussion with no focalizing rales or rhonchi. No expiratory wheeze. Breast: Exam deferred. Heart: Bradycardic with normal rhythm. No appreciable murmur or gallop. Distant heart sounds. Abdomen: Slightly obese, soft and nontender to palpation with no palpable hepatosplenomegaly. Bowel sounds positive all quadrants. Genitalia/rectal: Exam deferred. Extremities: Without clubbing, cyanosis or pitting edema. Peripheral pulses intact. Skin: Darkly tanned over sun exposed areas, otherwise normal color, warm and dry. No bruising. Neuro: Cranial nerves II to XII grossly intact. No focalized motor deficits though patient is sedated. No tremor. Psych: Labile affect which is flattened with monotonous tone to voice with patient sedated. Patient appears depressed but also angry at her living situation. No abnormal thought processes. Remote and recent memory not testable with her sedation. Results Labs 01/30/25 23:35 01/30/25 23:35 Labs: Laboratory Results - last 24 hr 01/30/25 01/31/25 23:35 00:30 WBC 4.49 RBC 4.35 Hgb 14.8 Hct 42.5 MCV 98 H MCH 34.0 H MCHC 34.8 RDW 11.8 Plt Count 184 MPV 9.0 Immature Gran % 0.0 Neutrophils % 60.3 Lymphocytes % 31.0 Monocytes % 6.2 Eosinophils % 1.8 Basophils % 0.7 Nucleated RBC % 0.0 Absolute Neutrophils 2.71 Absolute Lymphocytes 1.39 Absolute Monocytes 0.28 Absolute Eosinophils 0.08 Absolute Basophils 0.03 VBG pH 7.33 VBG pCO2 48 VBG pO2 89 VBG HCO3 25 VBG Total CO2 22 L VBG O2 Saturation 97 VBG Base Excess -1 Sodium 142 Potassium 4.0 Chloride 107 Carbon Dioxide 25.9 Anion Gap 9.1 BUN 11 Creatinine 0.6 Est GFR (CKD-EPI 2020) 99.55 Glucose 94 Calcium 8.9 Magnesium 1.9 Total Bilirubin 0.6 AST 68 H ALT 30 Alkaline Phosphatase 55 Total Protein 6.9 Albumin 3.9 Urine Color Yellow Urine Clarity Clear Urine pH 7.0 Ur Specific [place] 1.010 Urine Protein Negative Urine Ketones Negative Urine Blood Trace-intact H Urine Nitrite Negative Urine Bilirubin Negative Urine Urobilinogen 0.2 Ur Leukocyte Esterase Trace H Urine RBC 0-2 Urine WBC 10-20 H Ur Epithelial Cells Rare Urine Crystals Negative Urine Bacteria Rare Urine Casts Negative Urine Mucus Negative Ur Culture Indicated? Yes Urine Glucose Negative Urine HCG, Qual Negative Salicylates 3.2 Urine Opiates Screen Negative Urine Methadone Screen Negative Acetaminophen < 2 Ur Barbiturates Screen Negative Ur Tricyclics Screen Negative Ur Amphetamines Screen Negative U Benzodiazepines Scrn Positive A Urine Cocaine Screen Negative Ur THC Screen Negative Ethyl Alcohol 65.9 H Last Vital Signs Temp 35.8 C L 01/30/25 23:32 Pulse 45 L 01/31/25 01:40 Resp 14 01/31/25 01:40 BP 106/57 L 01/31/25 01:31 Pulse Ox 100 01/31/25 01:40 Time Spent Time spent with Patient: >75 minutes Time was spent: preparing to see the patient(eg.review tests), obtaining and/or reviewing separately otained hiistory, ordering medications,tests, procedures, indepentently interpreting results and care coordination
[2025-01-31 03:28] LABS: Acetaminophen < 2 ug/mL (10-30)
[2025-01-31] MEDS: Normal Saline 1,000 ML 125 ML IV (03:29)
[2025-01-31 06:45] LABS: HCT 40.0 % (36.0-46.0); HGB 13.7 g/dL (11.2-15.7); MCH 34.0 pg (27.0-33.0); MCHC 34.3 % (32.0-36.0); MCV 99 fL (80-95); MPV 8.8 fL (8.0-11.0); Platelet Count 200 10^3/uL (130-400); RBC 4.03 10^6/uL (3.93-5.22); RDW 11.9 % (11.7-14.6); RDW-SD 43.8 fL; WBC 3.72 10^3/uL (4.4-10.8)
[2025-01-31 07:02] LABS: ALT 26 U/L (14-59); AST 39 U/L (15-37); Albumin 3.3 g/dL (3.4-5.0); Alkaline Phosphatase 47 U/L (46-116); Anion Gap 4.6 mmol/L (3-11); BUN 11 mg/dL (7-18); Bilirubin, Total 0.4 mg/dL (0.2-1.0); CO2 30.4 mmol/L (21.0-32.0); Calcium 8.4 mg/dL (8.5-10.1); Chloride 109 mmol/L (98-107); Estimated GFR 99.55 (mL/min/1.73m2); Glucose 78 mg/dL (74-106); Potassium 3.5 mmol/L (3.5-5.1); Sodium 144 mmol/L (136-145); Total Protein 6.0 g/dL (6.4-8.2)
[2025-01-31 07:11] LABS: TSH 2.88 uIU/mL (0.36-3.74)
--- NOTE | 2025-01-31 09:28 | INITIAL_ITS ---
Date of service: 01/31/25 Time of Service: :28 Care Management Initial Assmt Initial Assessment Reason for Hospitalization: intentional overdose Functional Status/Living Situation Patient Presentation: Maricruz presented to the ED early this morning, via EMS after an intentional overdose. She reportedly told a friend, emre's going to be the end of the road for me before she a lot of pills. She was alert, but sleepy when she arrived at the ED. Maricruz does have a history of depression, anxiety, migraines and chronic pain. Maricruz was admitted to ICU, she has a sitter, and will be consulted once she is medically cleared. Maricruz was sleeping when CM went to meet with her, but she had asked staff that she be woken for CM. CM woke her, she roused easily and was very pleasant. She stated that she really wasn't trying to end her life - why would I have called my friend right away, and reported all the meds I took, if I really wanted to ? 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 She is hoping to start outpatient therapy. Maricruz had lyme disease that disabled her for many years. She is finally able to live a normal, physical life, and would like to feel normal mentally. At the end of our conversation, HS screeners arrived. [facility] did not feel that Maricruz is appropriate for EE. She will stay tonight for continued observation and be re-evaluated by [facility] tomorrow. Maricruz is in full agreement with this plan. Town of Residence: [place] Resides with: Other (boyfriend - Conrado- together 20+ years) Significant Other/Family: Out of area (no family locally, has a good girl friend that is like family) Natural Supports: friend Employment Status: Retired and Disabled Instrumental Activities of Daily Living (ADLs): Independent Activities/Hobbies/SocialSupport: enjoys playing trivia, travelling Medications Medication Management: Issues/Barriers with Other (intentionally overdosed) Advance Directives Advance Directives: Do you have an Advance Directive: N , 14:42 AD On File at [facility]: N 13, 08:46 Date Asked 01/31/25 Today, 07:12 AD Date Reviewed COLST On File at [facility] COLST Date Scanned Code Status Resuscitation Status Full Code Insurance Coverage/Financial Issues Insurance: BC/BS [place] [facility] Ad[facility]age - Care Team Visit Care Team Role Provider Type Adonay Espino MD [facility] STAFF PHYSICIAN Tahira Castrejon Primary Care Provider NON-[facility] STAFF PHYSICIAN Batsheva Horan MD Emergency Provider [facility] STAFF PHYSICIAN Elver Valdez Admit Provider NON-[facility] STAFF PHYSICIAN Attending Provider Discharge Potential Discharge Needs: PCP F/U Appt and Other (mental health eval, possibly psychiatry as well. Substance abuse support) Anticipated Barriers to Discharge: None Identified Patient/Family Education Needs: Review discharge instructions, discuss Ask Me Three Transportation: Other (dependent on disposition) Plan: Maricruz will be screened by [facility] again tomorrow morning, and likely discharge on a safety plan. She will f/u with [facility] for intake and establish with a therapist. She will also f/u with her PCP. Maricruz will transport home in a private vehicle. CM will continue to follow closely. Social Determinants of Health Screening Will the Patient Participate in the Screening?: Declined to provide Do you worry about having a steady place to live?: choose not to answer [facility] All Active Problems (Updated 01/31/25 @ 01:57 by Elver Valdez) COPD (chronic obstructive pulmonary disease) (Chronic) GERD (gastroesophageal reflux disease) (Chronic) Depression with anxiety (Chronic) Drug use disorder (Acute) Suicide attempt (Acute) Bradycardia (Acute) Acute hypoxemic respiratory failure (Acute) Overdose (Acute) Bursitis of right shoulder (Acute) Tendinitis of long head of biceps brachii of right shoulder (Acute) Right shoulder pain (Acute) Acute necrotizing pancreatitis (Acute) Chronic narcotic dependence (Chronic) Pleural effusion (Acute) Pericarditis (Acute) Pericardial effusion without cardiac tamponade (Acute) Chest pain, pleuritic (Acute) Chronic pain syndrome (Chronic) Anemia (Acute) Myalgia (Chronic) Peptic ulcer disease (Chronic) H/o Lyme disease (Chronic) Cardiomegaly (Chronic) Atrial septal defect (Chronic) Fracture dislocation of joint (Acute) Closed nondisplaced fracture of styloid process of right ulna (Acute) Other intraarticular fracture of lower end of right radius, initial encounter for closed fracture (Acute) Medical History Systemic candidiasis Primary fibromyalgia syndrome Chronic fatigue syndrome Chronic Lyme Disease Surgical History Oophrectomy, Right ? year secondary to torsion Cervical Conization/LEEP ? year and also cryo cauterizations ? Pap diagnosis Social History Smoking/Tobacco Use Status: Current every day Tobacco Type: e-cigarettes Smoking risk assessment performed?: Yes Alcohol Intake: current Alcohol Intake frequency: holidays/special occasions only Alcohol type: beer Drug use: Never Substance use type: does not use Housing: house Current gender identity: female Do you feel safe at home: Yes Do you feel safe in your relationship?: Yes Female Reproductive History Menstrual Age of Menarche: 17 Duration of menses: 6-7 days control method: none History History 3 Para 0 Hx # Term Pregnancies Multiple births Hx # Pregnancies Ectopic pregnancies AB induced Hx Number of Living Children AB spontaneous 3
[2025-01-31] MEDS: Pantoprazole 40 MG TABCR PO (10:22)
[2025-01-31] MEDS: Enoxaparin 40 MG/0.4 ML SYR SC (10:22)
[2025-01-31] MEDS: Aspirin 81 MG CHEW PO (10:22)
[2025-01-31] MEDS: Normal Saline Flush 10 ML SYR IVP ×2 (10:23→20:52)
--- NOTE | 2025-01-31 14:17 | CMSP_ITS ---
Date of service: 01/31/25 Time of Service: 09:00 Care Management Safety Plan Status Status: Interim Reason for Wait Reason for Wait: Assessment/Screening Safety Plan Safety Plan: CM will respond to ICU to assess patient after patient has been medically cleared and assessed by screener. If screener deems patient meets criteria for psychiatric stabilization CM will facilitate interdepartmental huddle with [facility] screener for safety planning considerations and meet with patient to review [facility] policy and safety plan, establish individual wishes for treatment and maintain patient rights. In the interim; please note safety plan below ? SAFETY PLAN: 1. Will remain on suicide precautions and in paper clothes.? 2. Will remain in room under direct supervision of one-on-one staff at all times provided by VARUN, CORE FILER supervisor hot strip mill. 3. May have paper cups, plates, finger foods as well as a cardboard spoon with which to eat meals. 4. Follow [facility] Management of the Admitted Behavioral Health Patient policy. 5. Comfort bath system only. 6. No personal belongings 7. No visitors. 8. Phone contact limited to?.. 9. Due to VOLUNTARY status, if patient wishes to leave [facility], staff will contact [facility] Crisis Screener ([phone]) and On-Call Inclusion Special Education Teacher ([phone]) as soon as possible. In the event of elopement, notify [facility] Police ([phone]). ?If deemed appropriate for inpatient psychiatric care, safety plan will be established with patient, and care team, to adhere to patient goals, identify restrictions based on behavioral status, address nutrition, and determine allowed personal belongings, tools for hygiene and personal care. As well plan will determine level of activity including ambulation, level of supervision, visitors, and determine privileges based on level of acuity, behaviors and level of engagement by patient
--- NOTE | 2025-01-31 15:56 | W.PM.PROGNOT ---
Date of Service Date of service: 01/31/25 Time of Service: 15:57 Assessment and Plan Assessment and plan (1) Suicide attempt: Start date: 01/31/25 Status: Acute Assessment and plan: Recovering, cleared for evaluation. Now denying suicidality. We did discuss potential lethality of what happened. She is willing to stay overnight to observe here, then home with safety plan and intake if stable. Subjective Subjective Patient reports: feels better and tolerating a regular diet; denies nausea, vomiting, shortness of breath or fever Interval history since last seen: She is feeling much better today. States she took the pills because she was upset at her partner, and she called her friend because she didn't really want to . She denies any suicidal ideation now. She denies pain currently, anxiety isn't bad, but she would like to go home. She has anxiety and chornic pain chronically but hasn't tolerated SSRIs, also doesn't tolerate gabapentinoids. SHe doesn't think her drinking is a problem, though she had severe pancreatitis in the past. Exam Narrative Exam Narrative: General: Drowsy this morning, Alert this afternoon. Oriented x 4 HEENT: Normocephalic, eyes with pupil~2-3mm reactive and are equal. EOMI Lungs: CTAB, nl effort, rate was 5 this am, now close to 20 Heart: Bradycardic with normal rhythm. No appreciable murmur or gallop. Distant heart sounds. Abdomen: Soft, NT/ND Neuro: Cranial nerves II to XII grossly intact. No focalized motor deficits though patient is sedated. No tremor. Psych: currently normal thought process and content, normal affect Objective Last Vital Signs Temp 36.3 C L 01/31/25 13:01 Pulse 69 01/31/25 14:47 Resp 20 01/31/25 14:47 BP 130/65 01/31/25 14:47 Pulse Ox 94 01/31/25 14:47 Laboratory Results - last 24 hr 01/30/25 01/31/25 01/31/25 23:35 00:30 02:41 WBC 4.49 RBC 4.35 Hgb 14.8 Hct 42.5 MCV 98 H MCH 34.0 H MCHC 34.8 RDW 11.8 Plt Count 184 MPV 9.0 Immature Gran % 0.0 Neutrophils % 60.3 Lymphocytes % 31.0 Monocytes % 6.2 Eosinophils % 1.8 Basophils % 0.7 Nucleated RBC % 0.0 Absolute Neutrophils 2.71 Absolute Lymphocytes 1.39 Absolute Monocytes 0.28 Absolute Eosinophils 0.08 Absolute Basophils 0.03 VBG pH 7.33 VBG pCO2 48 VBG pO2 89 VBG HCO3 25 VBG Total CO2 22 L VBG O2 Saturation 97 VBG Base Excess -1 Sodium 142 Potassium 4.0 Chloride 107 Carbon Dioxide 25.9 Anion Gap 9.1 BUN 11 Creatinine 0.6 Est GFR (CKD-EPI 2020) 99.55 Glucose 94 Calcium 8.9 Magnesium 1.9 Total Bilirubin 0.6 AST 68 H ALT 30 Alkaline Phosphatase 55 Total Protein 6.9 Albumin 3.9 TSH Urine Color Yellow Urine Clarity Clear Urine pH 7.0 Ur Specific [place] 1.010 Urine Protein Negative Urine Ketones Negative Urine Blood Trace-intact H Urine Nitrite Negative Urine Bilirubin Negative Urine Urobilinogen 0.2 Ur Leukocyte Esterase Trace H Urine RBC 0-2 Urine WBC 10-20 H Ur Epithelial Cells Rare Urine Crystals Negative Urine Bacteria Rare Urine Casts Negative Urine Mucus Negative Ur Culture Indicated? Yes Urine Glucose Negative Urine HCG, Qual Negative Salicylates 3.2 Urine Opiates Screen Negative Urine Methadone Screen Negative Acetaminophen < 2 < 2 Ur Barbiturates Screen Negative Ur Tricyclics Screen Negative Ur Amphetamines Screen Negative U Benzodiazepines Scrn Positive A Urine Cocaine Screen Negative Ur THC Screen Negative Ethyl Alcohol 65.9 H 01/31/25 05:50 WBC 3.72 L RBC 4.03 Hgb 13.7 Hct 40.0 MCV 99 H MCH 34.0 H MCHC 34.3 RDW 11.9 Plt Count 200 MPV 8.8 Immature Gran % Neutrophils % Lymphocytes % Monocytes % Eosinophils % Basophils % Nucleated RBC % Absolute Neutrophils Absolute Lymphocytes Absolute Monocytes Absolute Eosinophils Absolute Basophils VBG pH VBG pCO2 VBG pO2 VBG HCO3 VBG Total CO2 VBG O2 Saturation VBG Base Excess Sodium 144 Potassium 3.5 Chloride 109 H Carbon Dioxide 30.4 Anion Gap 4.6 BUN 11 Creatinine 0.6 Est GFR (CKD-EPI 2020) 99.55 Glucose 78 Calcium 8.4 L Magnesium Total Bilirubin 0.4 AST 39 H ALT 26 Alkaline Phosphatase 47 Total Protein 6.0 L Albumin 3.3 L TSH 2.88 Urine Color Urine Clarity Urine pH Ur Specific [place] Urine Protein Urine Ketones Urine Blood Urine Nitrite Urine Bilirubin Urine Urobilinogen Ur Leukocyte Esterase Urine RBC Urine WBC Ur Epithelial Cells Urine Crystals Urine Bacteria Urine Casts Urine Mucus Ur Culture Indicated? Urine Glucose Urine HCG, Qual Salicylates Urine Opiates Screen Urine Methadone Screen Acetaminophen Ur Barbiturates Screen Ur Tricyclics Screen Ur Amphetamines Screen U Benzodiazepines Scrn Urine Cocaine Screen Ur THC Screen Ethyl Alcohol PAWSS Have you Been Recently Intoxicated or Drunk Within the Last 30 days?: Yes Have you Ever Experienced Previous Episodes of Alcohol Withdrawal?: No Have you ever Experienced Withdrawal Seizures?: No Have you ever Experienced Delirium Tremens(DT)s?: No Have you ever undergone Alcohol Rehabilitation Treatment (i.e, inpt ot outpatient treatment programs)?: No Have you ever Experienced Blackouts?: No Have you ever Combined Alcohol with other Downers within the last 90 days?: No Have you ever Combined Alcohol with any other Substance of Abuse during the last 90 days?: No Positive Blood Alcohol level on Presentation? [PCS.BAL]: Yes Evidence of Increased Autonomic Activity (i.e. HR>120, tremor, sweating, agitation, nausea)?: No Result: 2 Time Spent with Patient Time Spent with Patient: 35-49 minutes Time was spent: preparing to see the patient(eg.review tests), obtaining and/or reviewing separately otained hiistory, ordering medications,tests, procedures, referring, communicating with other health child day care teacher and care coordination
--- NOTE | 2025-01-31 16:59 | PDOC.MHCN ---
Date of service: 01/31/25 Time of Service: 14:30 PHQ-9 Over the last 2 weeks, how often have you been bothered by any of the following problems? 1. Little interest or pleasure in doing things: not at all 2. Feeling down, depressed, or hopeless: not at all 3. Trouble falling or staying asleep, or sleeping too much: several days 4. Feeling tired or having little energy: not at all 5. Poor appetite or overeating: not at all 6. Feeling bad about yourself - or that you are a failure or have let yourself and your family down: not at all 7. Trouble concentrating on things, such as reading the newspaper or watching television: several days 8. Moving or speaking so slowly that other people could have noticed? - Or the opposite - being so fidgety or restless that you have been moving around a lot more than usual: several days 9. Thoughts that you would be better off or of hurting yourself in some way: not at all Total score: 3 If you checked off any problems, how difficult have these problems made it for you to do your work, take care of things at home, or get along with other people?: very difficult PHQ-9 Results: Negative Source: Developed by Drs. Elmer Wilkinson, Leonora Mueller, Rolando Miranda and colleagues, with an educational ericka from [employer]. Suicide Severity Rate CSSRS Have you wished you were or wished you could go to sleep and not wake up?: No Have you actually had any thoughts of killing yourself?: No CSSRS2 Have you been thinking about how you might do this?: No Have you had these thoughts and had some intention of acting on them?: No Have you started to work out or worked out the details of how to kill yourself? Do you intend to carry out this plan?: No CSSRS3 Have you ever done anything, started to do anything or prepared to do anything to end your life?: Yes CSSRS4 Was this within the past three months?: Yes Screening Score Total Score: 4 Screening: Positive Mental Health Emergency Note Release [facility] release signed:: Yes Reason for Visit MS Best is a 64 year old female who resides in [place] with her boyfriend and dog. The client states that she just got back from vacation with her girlfriends and had an amazing time. The client reports that when getting home her boyfriend was asking her to make him food and that he refuses to make food for himself. The client reports doing all of the lawn care, house cleaning, gardening and cooking. The client states her boyfriend expects her to bring him breakfast in bed. The client states that this is stressful and frustrating .The client states that she overdosed on her trazadone, xanax and oxycodone with a beer the previous night 01/30/25 and then called a friend who called an ambulance. The client reports this to be a cry for help and that she would never do it again. The client states she wants to go home and does not want in patient treatment. The client did not meet criteria on the PHQ9 for depression and answered no to all of the [place]'s questions. The client reports that her boyfriend does not like her having a friend group. The client did acknowledge that her friend saved her life by calling the ambulance. This clinician consulted with Nissa Cornell and Dr Espino which all agreed on continued observation and reassessing the next day. In the last 2 weeks has the pt presented for ES prior to today?: No Non Suicidal Self Injury Current: No History: No Safety Risk/Harm to Self or Others Current Ideation to Harm Self or Others: No Asssessment/Mental Status Appearance: Unremarkable Attitude: Cooperative and Friendly Speech: Normal Affect: Expansive Mood: Expansive Thought process: Unremarkable Hallucinations: No Delusions: No Attention: Unremarkable Perception: Not impaired Orientation: Fully orientated Memory: Impaired in: Recent and Remote Insight: Poor Judgement: Poor Neurovegetative Symptoms Sleep: Decrease Appetitie: No change Interests: No change Energy: No change Substance Use: Do you use nicotine?: Yes Have you used substances in the last 7 days?: yes, Sixteen ounces of beer Additional Issues: Assaultive/Threatening Behavior: No Medical Concerns: No Client engaged in active self harm w/weapon: No Threatening to run away: No Child reported abuse/neglect: No Voluntarily presenting for services: Yes Domestic violence is a concern: No Extreme Psychosis or extreme behavior is present: No Impression MS Best is a 64 year old female who resides in [place] with her boyfriend and dog. The client states that she just got back from vacation with her girlfriends and had an amazing time. The client reports that when getting home her boyfriend was asking her to make him food and that he refuses to make food for himself. The client reports doing all of the lawn care, house cleaning, gardening and cooking. The client states her boyfriend expects her to bring him breakfast in bed. The client states that this is stressful and frustrating .The client states that she overdosed on her trazadone, xanax and oxycodone with a beer the previous night 01/30/25 and then called a friend who called an ambulance. The client reports this to be a cry for help and that she would never do it again. The client states she wants to go home and does not want in patient treatment. The client did not meet criteria on the PHQ9 for depression and answered no to all of the [place]'s questions. The client reports that her boyfriend does not like her having a friend group. The client did acknowledge that her friend saved her life by calling the ambulance. This clinician consulted with Nissa Cornell and Dr Espino which all agreed on continued observation and reassessing the next day.? Plan/Disposition Recommended Disposition: [facility] Services [facility] Services: Therapy. Plan: The client will stay in the ICU for observation for twenty four hours and be ressassed tomorrow 02/01/25 Person reported agreement to plan: Yes Reports/communication Outcome discussed with: Other (ICU provider)
[2025-01-31] MEDS: Ibuprofen 600 MG TAB PO ×2 (17:17→22:28)
[2025-01-31] MEDS: Rosuvastatin 20 MG TAB PO (20:52)
[2025-01-31] MEDS: traZODone 100 MG TAB PO (20:53)
--- NOTE | 2025-01-31 22:15 | W.PC.ACHO ---
Registration Status: ADM IN Primary Language: Preferred Language: Armenian ED Information & Data Chief Complaint Suicide-Atempt 01/31/25 00:22 Triage Note Patient attempted suicide, 01/30/25 23:32 took 10 trazodone, 10 5 mg xanax, and 10 10 mg oxycodone. Medical / Surgical History (Last Reviewed 01/31/25 @ 01:50 by Elver Valdez) Systemic candidiasis Primary fibromyalgia syndrome Chronic fatigue syndrome Chronic Lyme Disease (Last Reviewed 01/31/25 @ 01:50 by Elver Valdez) Oophrectomy, Right Cervical Conization/LEEP Most Recent Vital Signs Temperature 36.9 C 01/31/25 21:00 Temperature Source Temporal Artery Scan 01/31/25 21:00 Pulse 62 01/31/25 20:58 Pulse 80 01/31/25 17:31 Respiratory Rate 14 01/31/25 20:58 Respiratory Effort Normal, Non-Labored 01/31/25 03:15 Respiratory Depth Shallow 01/31/25 03:15 Respiratory Pattern Bradypnea 01/31/25 03:15 Blood Pressure 117/70 01/31/25 20:58 Blood Pressure Mean 84 01/31/25 20:58 Blood Pressure Position Sitting 01/30/25 23:32 Pulse Oximetry 93 01/31/25 20:58 Oxygen Delivery Method Room Air 01/31/25 21:00 Oxygen Flow Rate 0 01/31/25 21:00 Pain Level 0 01/31/25 21:00 Comment desatting to 89, put on 2 lpm n/c 01/30/25 23:32 Allergies adhesive Allergy (Unknown, Verified 01/30/25 23:37) Unknown atorvastatin (From Lipitor) Allergy (Verified 01/30/25 23:37) Unknown bupropion (From Wellbutrin) Allergy (Verified 01/30/25 23:37) Unknown gabapentin Allergy (Verified 01/30/25 23:37) Unknown pregabalin (From Lyrica) Allergy (Verified 01/30/25 23:37) Unknown Sulfa (Sulfonamide Antibiotics) Allergy (Verified 01/30/25 23:37) Unknown ssri Allergy (Uncoded 01/30/25 23:37) Unknown Active Medications Generic Name Dose Route Start Last Admin Trade Name Freq PRN Reason Stop Dose Admin Aspirin 81 mg 01/31/25 08:30 01/31/25 10:22 Aspirin 81 Mg Chew PO 81 mg DAILY DAISHA Administration Ibuprofen 600 mg 01/31/25 16:57 01/31/25 17:17 Ibuprofen 600 Mg Tab PO 600 mg Q6H PRN PRN Administration Pantoprazole Sodium 40 mg 01/31/25 07:30 01/31/25 10:22 Pantoprazole 40 Mg Tabcr PO 40 mg 0730 DAISHA Administration Rosuvastatin Calcium 20 mg 01/31/25 20:00 01/31/25 20:52 Rosuvastatin 20 Mg Tab PO 20 mg QPM DAISHA Administration Sodium Chloride 0 ml 01/31/25 08:30 01/31/25 20:52 Normal Saline Flush 10 Ml Syr IVP 10 ml BID DAISHA Administration Trazodone HCl 100 mg 01/31/25 20:00 01/31/25 20:53 Trazodone 100 Mg Tab PO 100 mg HS DAISHA Administration IV IV Catheter Type [Left Forearm Saline Lock ] IV Catheter Gauge [Left 18 Forearm] Diagnostics 01/31/25 01/31/25 01/31/25 Range/Units 05:50 02:41 00:30 WBC 3.72 L (4.4-10.8) 10^3/uL RBC 4.03 (3.93-5.22) 10^6/uL Hgb 13.7 (11.2-15.7) g/dL Hct 40.0 (36.0-46.0) % MCV 99 H (80-95) fL MCH 34.0 H (27.0-33.0) pg MCHC 34.3 (32.0-36.0) % RDW 11.9 (11.7-14.6) % Plt Count 200 (130-400) 10^3/uL MPV 8.8 (8.0-11.0) fL Immature Gran % % Neutrophils % % Lymphocytes % % Monocytes % % Eosinophils % % Basophils % % Nucleated RBC % (0.0-0.3) % Absolute Neutrophils (1.2-6.7) 10^3/uL Absolute Lymphocytes (1.2-3.4) 10^3/uL Absolute Monocytes (0.1-0.8) 10^3/uL Absolute Eosinophils (0.0-0.7) 10^3/uL Absolute Basophils (0.0-0.2) 10^3/uL VBG pH (7.31-7.41) VBG pCO2 (41-51) mmHg VBG pO2 mmHg VBG HCO3 (23-28) mmol/L VBG Total CO2 (24-29) mmol/L VBG O2 Saturation % VBG Base Excess (-2-3) mmol/L Sodium 144 (136-145) mmol/L Potassium 3.5 (3.5-5.1) mmol/L Chloride 109 H (98-107) mmol/L Carbon Dioxide 30.4 (21.0-32.0) mmol/L Anion Gap 4.6 (3-11) mmol/L BUN 11 (7-18) mg/dL Creatinine 0.6 (0.55-1.02) mg/dL Est GFR (CKD-EPI 2020) 99.55 (mL/min/1.73m2) Glucose 78 (74-106) mg/dL Calcium 8.4 L (8.5-10.1) mg/dL Magnesium (1.8-2.4) mg/dL Total Bilirubin 0.4 (0.2-1.0) mg/dL AST 39 H (15-37) U/L ALT 26 (14-59) U/L Alkaline Phosphatase 47 (46-116) U/L Total Protein 6.0 L (6.4-8.2) g/dL Albumin 3.3 L (3.4-5.0) g/dL TSH 2.88 (0.36-3.74) uIU/mL Urine Color Yellow (Yellow) Urine Clarity Clear (Clear) Urine pH 7.0 (5-8) Ur Specific [place] 1.010 (1.005-1.025) Urine Protein Negative (Neg-Trace) mg/dL Urine Ketones Negative (Negative) mg/dL Urine Blood Trace-intact H (Negative) Urine Nitrite Negative (Negative) Urine Bilirubin Negative (Negative) Urine Urobilinogen 0.2 (Up to 0.2) mg/dL Ur Leukocyte Esterase Trace H (Negative) Urine RBC 0-2 (0-2) HPF Urine WBC 10-20 H (0-5) HPF Ur Epithelial Cells Rare (Negative) HPF Urine Crystals Negative (Negative) HPF Urine Bacteria Rare (Negative) HPF Urine Casts Negative (Negative) LPF Urine Mucus Negative (Negative) Ur Culture Indicated? Yes Urine Glucose Negative (Negative) mg/dL Urine HCG, Qual Negative Salicylates (<2.8) mg/dL Urine Opiates Screen Negative (Negative) Ur Oxycodone Screen Pending Urine Methadone Screen Negative (Negative) Urine Fentanyl Screen Pending Acetaminophen < 2 (10-30) ug/mL Ur Barbiturates Screen Negative (Negative) Ur Tricyclics Screen Negative (Negative) Ur Amphetamines Screen Negative (Negative) U Benzodiazepines Scrn Positive A (Negative) Urine Cocaine Screen Negative (Negative) Ur THC Screen Negative (Negative) Ethyl Alcohol (<10) mg/dL Urine Xylazine Pending 01/30/25 Range/Units 23:35 WBC 4.49 (4.4-10.8) 10^3/uL RBC 4.35 (3.93-5.22) 10^6/uL Hgb 14.8 (11.2-15.7) g/dL Hct 42.5 (36.0-46.0) % MCV 98 H (80-95) fL MCH 34.0 H (27.0-33.0) pg MCHC 34.8 (32.0-36.0) % RDW 11.8 (11.7-14.6) % Plt Count 184 (130-400) 10^3/uL MPV 9.0 (8.0-11.0) fL Immature Gran % 0.0 % Neutrophils % 60.3 % Lymphocytes % 31.0 % Monocytes % 6.2 % Eosinophils % 1.8 % Basophils % 0.7 % Nucleated RBC % 0.0 (0.0-0.3) % Absolute Neutrophils 2.71 (1.2-6.7) 10^3/uL Absolute Lymphocytes 1.39 (1.2-3.4) 10^3/uL Absolute Monocytes 0.28 (0.1-0.8) 10^3/uL Absolute Eosinophils 0.08 (0.0-0.7) 10^3/uL Absolute Basophils 0.03 (0.0-0.2) 10^3/uL VBG pH 7.33 (7.31-7.41) VBG pCO2 48 (41-51) mmHg VBG pO2 89 mmHg VBG HCO3 25 (23-28) mmol/L VBG Total CO2 22 L (24-29) mmol/L VBG O2 Saturation 97 % VBG Base Excess -1 (-2-3) mmol/L Sodium 142 (136-145) mmol/L Potassium 4.0 (3.5-5.1) mmol/L Chloride 107 (98-107) mmol/L Carbon Dioxide 25.9 (21.0-32.0) mmol/L Anion Gap 9.1 (3-11) mmol/L BUN 11 (7-18) mg/dL Creatinine 0.6 (0.55-1.02) mg/dL Est GFR (CKD-EPI 2020) 99.55 (mL/min/1.73m2) Glucose 94 (74-106) mg/dL Calcium 8.9 (8.5-10.1) mg/dL Magnesium 1.9 (1.8-2.4) mg/dL Total Bilirubin 0.6 (0.2-1.0) mg/dL AST 68 H (15-37) U/L ALT 30 (14-59) U/L Alkaline Phosphatase 55 (46-116) U/L Total Protein 6.9 (6.4-8.2) g/dL Albumin 3.9 (3.4-5.0) g/dL TSH (0.36-3.74) uIU/mL Urine Color (Yellow) Urine Clarity (Clear) Urine pH (5-8) Ur Specific [place] (1.005-1.025) Urine Protein (Neg-Trace) mg/dL Urine Ketones (Negative) mg/dL Urine Blood (Negative) Urine Nitrite (Negative) Urine Bilirubin (Negative) Urine Urobilinogen (Up to 0.2) mg/dL Ur Leukocyte Esterase (Negative) Urine RBC (0-2) HPF Urine WBC (0-5) HPF Ur Epithelial Cells (Negative) HPF Urine Crystals (Negative) HPF Urine Bacteria (Negative) HPF Urine Casts (Negative) LPF Urine Mucus (Negative) Ur Culture Indicated? Urine Glucose (Negative) mg/dL Urine HCG, Qual Salicylates 3.2 (<2.8) mg/dL Urine Opiates Screen (Negative) Ur Oxycodone Screen Urine Methadone Screen (Negative) Urine Fentanyl Screen Acetaminophen < 2 (10-30) ug/mL Ur Barbiturates Screen (Negative) Ur Tricyclics Screen (Negative) Ur Amphetamines Screen (Negative) U Benzodiazepines Scrn (Negative) Urine Cocaine Screen (Negative) Ur THC Screen (Negative) Ethyl Alcohol 65.9 H (<10) mg/dL Urine Xylazine 08/28/25 00:30 Urine Culture - Pending Urine - Reflex from Ua [id number] Documentation Fingerstick Glucose Start: 01/30/25 23:47 Freq: Status: Active Protocol: Activity Type Activity Date Activity User E-sign Co-sign Detail Recorded Client Recorded Date Recorded By Document 01/30/25 23:46 BKG DAEMON(3) [id number] 01/30/25 23:47 BKG DAEMON(4) Intake and Output - 24 Hour Total 01/30/25 23:24 thru 01/31/25 21:36 Intake Total 2322 Output Total 1720 Balance 602 Weight 65.2 kg Intake: IV 1050 Oral 1272 Output: Urine 1720 Other: Urine Color Yellow Urine Appearance Clear Comment Seen by cpso, but did not measure urine. Moderate amount in commode. Urinary Catheter Urinary Catheter Date of 01/31/25 Insertion [Urethral (Alexander)] Time of insertion [Urethral ( 06:15 Alexander)] Falls Risk Assessment History of Falls No History 01/31/25 03:15 Contributing Factors Unstable,Medications 01/31/25 03:15 Ambulatory Aids Independent 01/31/25 03:15 Tubes/Lines With any additional score 01/31/25 03:15 Gait Evaluation No gait disturbance 01/31/25 03:15 Cognition Cognitive impairment 01/31/25 03:15 Fall Total Score 41 01/31/25 03:15 Level of Risk Moderate Risk 01/31/25 03:15 Problems (Last Reviewed 01/31/25 @ 01:50 by Elver Valdez) COPD (chronic obstructive pulmonary disease) (Chronic) GERD (gastroesophageal reflux disease) (Chronic) Depression with anxiety (Chronic) Drug use disorder (Acute) Suicide attempt (Acute) Bradycardia (Acute) Acute hypoxemic respiratory failure (Acute) Overdose (Acute) Chronic pain syndrome (Chronic) Cardiomegaly (Chronic) v v v v v v v v v Sending and/or Receiving Nurses: Please use comment section below to note any information pertinent to the patient hand-off not included above. Information / Comments: pt. transfer from ICU to room 228.Alert & Oriented , RA , VSS, pt. denied SOB . N/V , pt. on 1& 1 . no acute distress Report received from:Natasha
[2025-01-31] MEDS: Acetaminophen 325 MG TAB 650 MG PO (22:27)
--- NOTE | 2025-02-01 00:01 | CE_ITS ---
Date of service: 01/31/25 Time of Service: 23:30 Event Note: I was called by the night nurse to be informed the patient was requesting reinitiation of her Xanax. She had received her trazodone as ordered by the day hospitalist but thought she was having a panic attack. Not seeking a mental health did see the patient and assessed her as safe for treatment as an outpatient with patient stating that her action was impulsive and she was not truly trying to kill herself stating I would have called my girlfriend if I really want to . She has been having conflict with her disabled partner of 20 years and this is causing decompensation of her coping skills. She does admit that she took her old oxycodone which were only a few tablets and that she only took a few tablets and not 10 tablets of her Xanax. She was at the end of her monthly prescription of Xanax 2 mg 3 times daily. I did misinterpret that she was only on 2 tablets daily in my H&P with patient prescribed 84 tablets every 28 days. She does drink with her Xanax at high dose and does not appear to have insight that this may be dangerous. I did state that because of her misuse of her oxycodone which was no prescription and misuse of her Xanax with this gesture as well as her behavior of drinking alcohol which may complicate her treatment with Xanax, she should consider weaning off Xanax which will be difficult but achievable and look for alternative treatment for her anxiety. This will be a challenge. Her insight is poor. I did call poison control to clear reinitiation of her Xanax and they stated that it would be safe and also would avoid benzodiazepine withdrawal which could be severe. The patient already has been decreasing her use by taking 1/2 tablet at times rather than a full tablet 3 times daily. I did inform her that she may have a problem filling her Xanax prescription if it is early and she will discu ss this with her PCP. She also should discuss weaning and alternative treatments for her anxiety with either psychiatrist or her PCP. After long discussion, I did assess that it was safe to restart the patient's Xanax at this time. Long-term plans as above. Assessment/plan: Chronic anxiety with depression and poor coping skills with drug use disorder untreated at this time and patient with poor insight. She has dealt with chronic pain having Lyme disease which disabled her as a young adult. This has been treated and she does not have chronic pain at this time. She wants to move forward and is willing to wean off Xanax if alternative treatments are helpful. Xanax 2 mg p.o. tonight will be given and patient will discuss continued Xanax use with her PCP at discharge. She should not go through Xanax withdrawal by skipping a couple of doses since she already has been self weaning by occasionally taking only 1/2 tablet 3 times daily. Prognosis is poor but patient is cooperative and hopeful for positive change. Time Spent with Patient Time spent in critical care(minutes): 30 Time Spent Included: Coordination of care, Chart review, Documenting critically ill care, Time at immediate bedside (20-minute conversation with patient.) and Discussing critically ill care with other medical staff (Poison control on safety of restarting Xanax with intentional misuse and overdose.)
[2025-02-01] MEDS: ALPRAZolam 0.25 MG TAB 2 MG PO (00:12)
[2025-02-01 06:58] LABS: ALT 18 U/L (14-59); AST 20 U/L (15-37); Albumin 2.8 g/dL (3.4-5.0); Alkaline Phosphatase 41 U/L (46-116); Anion Gap 6.1 mmol/L (3-11); BUN 9 mg/dL (7-18); Bilirubin, Total 0.4 mg/dL (0.2-1.0); CO2 29.9 mmol/L (21.0-32.0); Calcium 8.4 mg/dL (8.5-10.1); Chloride 109 mmol/L (98-107); Estimated GFR 95.92 (mL/min/1.73m2); Glucose 90 mg/dL (74-106); Potassium 4.0 mmol/L (3.5-5.1); Sodium 145 mmol/L (136-145); Total Protein 5.3 g/dL (6.4-8.2)
[2025-02-01 07:05] VITALS: BP 119/60; PULSE 54; RESP 16; TEMP 36.5; O2SAT 96
[2025-02-01] MEDS: Aspirin 81 MG CHEW PO (08:44)
[2025-02-01] MEDS: Pantoprazole 40 MG TABCR PO (08:44)
[2025-02-01] MEDS: Normal Saline Flush 10 ML SYR IVP (08:44)
[2025-02-01 11:34] VITALS: BP 152/66; PULSE 46; RESP 16; TEMP 36.7; O2SAT 97
--- NOTE | 2025-02-01 11:45 | RT.EKG_ITS ---
APPROVED REPORT Exam: Resting ECG Reason for Exam: chest pain Patient Location: I HR:46 bpm ECG Measurements Heart Rate 46 AXIS [place] 153 P 39 QRSd 95 QRS 9 QT 510 T 45 QTc 447 Conclusion Sinus bradycardia...rate< 50
[2025-02-01 11:52] LABS: Fentanyl Scr w/Rfx Confirm Negative ng/mL (<1)
[2025-02-01 11:57] VITALS: BP 152/78
[2025-02-01] MEDS: ALPRAZolam 0.5 MG TAB 2 MG PO (12:04)
[2025-02-01] MEDS: Acetaminophen 325 MG TAB 650 MG PO (12:05)
[2025-02-01 13:14] VITALS: BP 137/77
--- NOTE | 2025-02-01 13:34 | PDOC.CMDIS ---
Date of service: 02/01/25 Time of Service: 13:34 LACE Index Scoring Tool Questions: Length of Stay (in days): 2 Was the patient admitted via the E.D.?: Yes Comorbidities: Chronic Pulmonary Disease E.D. Visits: 2 Answers: Total Score: 9 Risk of Readmission: Low Risk Care Management Discharge Plan Reason for Hospitalization: intentional overdose Discharge Plan: Maricruz will discharge home this afternoon on a safety plan. She was seen and cleared by [facility] this morning. Maricruz will f/u with [facility] via phone tomorrow morning. She is being referred to therapy at the [facility], as there is no copay for this service, and money is tight. Maricruz will f/u with her PCP on 02/15 at 10am at a visit coordinated by CM. Maricruz will transport home in a private vehicle. Patient/Family Education Needs: Review of discharge instructions, activity, limitations, and discuss Ask me 3. SDOH Health Related Social Needs: Health related social needs house/econ circumstance lonely/isolated Health related social needs details not happy with current boyfriend Health related social needs details: not happy with current boyfriend Referrals and interventions: pt aware of food pantry in [place] and [facility]
--- NOTE | 2025-02-01 13:44 | PDOC.CMSAFE ---
Date of service: 02/01/25 Time of Service: 08:30 Care Management Safety Plan Status Status: Voluntary Reason for Wait Reason for Wait: Assessment/Screening (awaiting second screening - likely discharge on safety plan) Safety Plan Safety Plan: VOLUNTARY FOR INPATIENT PSYCHIATRIC STABILIZATION.? Patient is appropriate in all interactions since arriving at [facility]; Pt has demonstrated appropriate coping and communication skills, has articulated his or her needs and concerns and is fully engaged during staff interactions. Safety plan has been established with patient, and care team, to adhere to patient goals, identify restrictions based on behavioral status, address nutrition, and determine allowed personal belongings, tools for hygiene and personal care. Determine level of activity including ambulation, level of supervision, visitors, and determine privileges based on behaviors and level of engagement by pt. VOLUNTARY SAFETY PLAN: 1. Will remain on suicide precautions, in paper clothes 2. Will remain in room 228 under direct supervision of one-on-one staff at all times provided by [employer]; VARUN, VALUE STREAM MANAGER office machine inspector. 3. May have paper cups, plates, finger foods as well as a cardboard spoon with which to eat meals. 4. Follow [facility] Management of the Admitted Behavioral Health Patient policy. 5. Shower available without restriction 6. Personal belongings-soft items permitted at RN discretion. 7. Visitors-none at this time. 8. Activities: soft cart items, hospital tablets ([employer]/[place]music) approved per RN discretion. 9.? Bathroom available without restriction. 10. Phone: limited to [facility] cordless phone at RN discretion. Due to VOLUNTARY status, if patient wishes to leave [facility], staff will contact [facility] Crisis Screener ([phone]) and Mobile Marketing Manager ([phone]) as soon as possible. In the event of elopement, notify [facility] Police ([phone]).
--- NOTE | 2025-02-01 15:13 | PDOC.MHCN_ITS ---
Date of service: 02/01/25 Time of Service: 12:01 Mental Health Emergency Note Release [facility] release signed:: Yes Reason for Visit The client is known to [facility] in a limited capacity as she was assessed by HELEN Sandhu yesterday 01/31 while in the ICU at [facility] after she overdosed on trazadone, oxycodone, and Xanax. The client reports that she has never been hospitalized for her mental health. This check writer salesperson meets with the client face to face in room 228 on the medical surge unit at [facility]. In the last 2 weeks has the pt presented for ES prior to today?: No Client Information Client is: New Well Housed: Yes Impression The client is a 64 year old female who lives in [place], [place] with her boyfriend of 30 years. The client presents with symptoms most congruent to anxiety. The client reports that on Tuesday she had just gotten home from a week long vacation in [place] with her girlfriends and was overwhelmed by all of the things that her boyfriend was telling her that she needed to do. The client states: I do everything; tend the land, cook the meals, garden, and he even expects me to serve all of his meals in bed. The client reports that her intention the other night was never to end her life, but to go numb. The client shows good insight and judgment stating that immediately after taking the medications she called her friend who called 911. The client is agreeable to least restrictive and a referral to outpatient services. Plan/Disposition Recommended Disposition: PCP/Office visit and [facility] Services [facility] Services: Therapy. Plan: Pro-active safety plan in place with the client. The client will be discharged home once medically stable. The client will follow-up with [facility] tomorrow morning for check-in phone call. The client is agreeable to referral for therapy at [facility] for short term. The client will follow-up with PCP for scheduled appointment on 02/15 at 10a. Both [facility] and [facility] information is reviewed with the client. Person reported agreement to plan: Yes Reports/communication Outcome discussed with: ED/Personnel (Verbal given to [facility] tire care manager Marycruz Mayer )
--- NOTE | 2025-02-01 15:41 | DSE_ITS ---
Date of service: 02/01/25 Time of Service: 15:42 DS: Diagnosis Discharge Diagnosis (1) Suicide attempt: Status: Acute Discharge Plan Disposition Patient Disposition: Home Condition: Stable Discharge Details Reason For Visit: Intentional overdose with suicide attempt, Drug us Admit Date/Time: 01/31/25 02:04 Admit Provider: Elver Valdez Attending Provider: Elver Valdez Primary Care Provider: Tahira Castrejon Hospital Course Hospital Course: 64 yo F with history of anxiety on chornic high dose alprazolam, chronic pain syndrome formerly on opioids, alcohol use, and COPD who presented after taking a combination of trazodone, oxycodone, and alprazolam after a conflict with her partner. She called her friend immediately before taking the pills and told the friend she was suicidal. She was able to communicate what she took in the emergency room. She was observed overnight in the ICU. She was initially hypoxic with RR around 5/min, but this improved. By the afternoon of 01/31 she was medically cleared and met with mental health crisis team. At that point she denied suicidal ideation. They recommended another 24 hours of observation. She had some episodes of chest pain, but EKGs were reassuring. These resovled after alprazolam, which had been held due to the overdose. Her alcohol level was 65.9 on admission. She stated she had one drink. Her MCV is chronically elevated and AST/ALT suggest more heavy chronic use. She also had a history of pancreatitis. Alcohol cessation was recommended. After a discussion, she was open to tapering the chronic benzodiazepines. This will have to happen over months. We decided to use long acting medication and chose clonezepam. The equivalent of 6mg of alprazolam daily is 3-24mg. We started with 2mg TID to match the alprazolam, though it's possible this will not quite be equivalent. She was given enough for 1 week, message sent to her PCP via the EHR as I was not able to get through to [facility]. She took one dose of clonazepam prior to discharge. She has not tolerated SSRIs in the past. Buspirone may be an option. Primary care follow up within one week Home Meds and New Rx's Prescriptions: New clonazepam [Klonopin] 2 mg tablet 2 mg PO TID Qty: 21 0RF Rx Instructions: stop alprazolam Continued ondansetron HCl 4 mg tablet 4 mg PO Q6H PRN sumatriptan succinate 100 mg tablet See Rx Instructions PO .COMPLEX Rx Instructions: take 1 tab at onset of headache; if no relief, may repeat 1 tab after at least 2 hrs; max = 2 tabs/24 hrs PO ibuprofen 600 mg tablet 600 mg PO Q6H PRN hydrocortisone 2.5 % cream 1 applic topical BID PRN naloxone [Narcan] 4 mg/actuation spray,non-aerosol 4 mg intranasal Q2M PRN Rx Instructions: spray 1 dose into ONE nostril; alternate nostrils w each dose until help arrives rosuvastatin 20 mg tablet 20 mg PO DAILY albuterol sulfate [Ventolin HFA] 90 mcg/actuation HFA aerosol inhaler 2 puff inhalation Q6H PRN fenofibrate nanocrystallized [Tricor] 145 mg tablet 54 mg PO DAILY trazodone 100 mg tablet 100 mg PO HS Patient Comments: 12/31/21- per [facility] med list- take 1-2 tab po every night (100 mg- 200 mg) aspirin [Aspirin Low-Strength] 81 MG tablet,chewable 81 mg PO DAILY pantoprazole 40 mg tablet,delayed release (DR/EC) 40 mg PO DAILY Patient Comments: TAKE ONE TABLET BY MOUTH EVERY DAY multivitamin Tablet 1 tab PO DAILY Discontinued alprazolam 2 mg tablet 2 mg PO TID PRN Discharge Instructions Additional Instructions: We prescribed clonazepam to replace the alprazolam (Xanax). This is the same kind of medication at the same dose, but it is more gradual onset and lasts longer. You should work with Dr. Castrejon to slowly taper this medication. You should avoid alcohol for now. Follow up with mental health as planned Stand Alone Forms: Nursing Discharge Form Referrals: Tahira Castrejon [Primary Care Provider, Medicine] - 02/15/25 10:00 am Referral Note: Activity:: Activity as Tolerated Equipment/Supplies:: No Equipment Needed Diet:: As Tolerated Discharge Orders Discharge Orders: Discharge Order (Routine); Ordered 02/01/25 Ordered By: Adonay Espino Discharge Data Discharge Date/Time-TO BE ENTERED AT DEPARTURE: 02/01/25 16:27 DS: Summary Time Spent with Patient providing and/or coordinating discharge services: Greater than 30 minutes Status at Discharge Functional status at discharge: independent ambulation Overall status at discharge: patient is progressing back to baseline Mental Status: mental status grossly normal Speech and Movement: speech and movement normal Mood: congruent mood Affect: normal affect Quality:SDOH Health Related Social Needs: Health related social needs house/econ circumstance lo clint/isolated Health related social needs details not happy with cur rent boyfriend Health related social needs details: not happy with current boyfriend Referrals and interventions: pt aware of food pantry in [place] and [facility] Exam Narrative Exam Narrative: General: NAD Alert and oriented x 4 HEENT: Normocephalic, eyes with pupil~2-3mm reactive and are equal. EOMI Lungs: CTAB, nl effort Heart: Bradycardic with normal rhythm. No appreciable murmur or gallop. Distant heart sounds. Abdomen: Soft, NT/ND Neuro: Cranial nerves II to XII grossly intact. No focalized motor deficits. No tremor. Psych: currently normal thought process and content, normal mood and affect Psych Mental Status: mental status grossly normal Speech and Movement: speech and movement normal Mood: congruent mood Affect: normal affect DS: Data Vitals/I&O Vitals and I&O: Vital Signs Temperature 36.7 C 02/01/25 11:34 Temperature Source Temporal Artery Scan 02/01/25 11:34 Pulse 46 L 02/01/25 11:34 Pulse 80 01/31/25 17:31 Respiratory Rate 16 02/01/25 11:34 Respiratory Effort Normal, Non-Labored 01/31/25 03:15 Respiratory Depth Shallow 01/31/25 03:15 Respiratory Pattern Bradypnea 01/31/25 03:15 Blood Pressure 137/77 02/01/25 13:14 Blood Pressure Mean 97 02/01/25 13:14 Blood Pressure Position Sitting 01/30/25 23:32 Pulse Oximetry 97 02/01/25 11:34 Oxygen Delivery Method Room Air 02/01/25 11:34 Oxygen Flow Rate 0 02/01/25 11:34 Pain Level 0 02/01/25 11:34 Comment desatting to 89, put on 2 lpm n/c 01/30/25 23:32 Intake & Output 01/31/25 02/01/25 02/01/25 23:59 11:59 23:59 Intake Total 2019 / 2321 Output Total 250 / 1720 1000 / 1000 Balance 1770 / 602 -1000 / -1000 Intake: IV 1000 / 1050 Oral 1020 / 1272 Output: Urine 250 / 1720 1000 / 1000 Other: Urine Color Yellow Urine Appearance Clear Urine Odor Strong Comment Seen by cpso, but did not measure urine. Moderate amount in commode. Data Completed and Pending Labs on day of discharge: Labs from last 24 hours 02/01/25 02/01/25 02/01/25 13:00 11:51 05:55 Sodium 145 Potassium 4.0 Chloride 109 H Carbon Dioxide 29.9 Anion Gap 6.1 BUN 9 Creatinine 0.7 Est GFR (CKD-EPI 2020) 95.92 Glucose 90 Calcium 8.4 L Total Bilirubin 0.4 AST 20 ALT 18 Alkaline Phosphatase 41 L Troponin I Cancelled Cancelled Total Protein 5.3 L Albumin 2.8 L Urine Fentanyl Screen 01/31/25 00:30 Sodium Potassium Chloride Carbon Dioxide Anion Gap BUN Creatinine Est GFR (CKD-EPI 2020) Glucose Calcium Total Bilirubin AST ALT Alkaline Phosphatase Troponin I Total Protein Albumin Urine Fentanyl Screen Negative Preliminary micro results at discharge 01/31/25 00:30 Urine - Reflex from Ua Urine Culture - Preliminary PFSH All Active Problems (Updated 01/31/25 @ 01:57 by Elver Valdez) COPD (chronic obstructive pulmonary disease) (Chronic) GERD (gastroesophageal reflux disease) (Chronic) Depression with anxiety (Chronic) Drug use disorder (Acute) Suicide attempt (Acute) Bradycardia (Acute) Acute hypoxemic respiratory failure (Acute) Overdose (Acute) Bursitis of right shoulder (Acute) Tendinitis of long head of biceps brachii of right shoulder (Acute) Right shoulder pain (Acute) Fracture dislocation of joint (Acute) Closed nondisplaced fracture of styloid process of right ulna (Acute) Other intraarticular fracture of lower end of right radius, initial encounter for closed fracture (Acute) Atrial septal defect (Chronic) Cardiomegaly (Chronic) H/o Lyme disease (Chronic) Peptic ulcer disease (Chronic) Myalgia (Chronic) Anemia (Acute) Chronic pain syndrome (Chronic) Chest pain, pleuritic (Acute) Pericardial effusion without cardiac tamponade (Acute) Pericarditis (Acute) Pleural effusion (Acute) Chronic narcotic dependence (Chronic) Acute necrotizing pancreatitis (Acute) Medical History Systemic candidiasis Primary fibromyalgia syndrome Chronic fatigue syndrome Chronic Lyme Disease Surgical History Oophrectomy, Right ? year secondary to torsion Cervical Conization/LEEP ? year and also cryo cauterizations ? Pap diagnosis Social History Smoking/Tobacco Use Status: Current every day Tobacco Type: e-cigarettes Smoking risk assessment performed?: Yes Alcohol Intake: current Alcohol Intake frequency: holidays/special occasions only Alcohol type: beer Drug use: Never Substance use type: does not use Housing: house Current gender identity: female Do you feel safe at home: Yes Do you feel safe in your relationship?: Yes Female Reproductive History Menstrual Age of Menarche: 17 Duration of menses: 6-7 days control method: none History History 3 Para 0 Hx # Term Pregnancies Multiple births Hx # Pregnancies Ectopic pregnancies AB induced Hx Number of Living Children AB spontaneous 3 Time Spent with Patient Time Spent with Patient: 45-69 minutes Time was spent: preparing to see the patient(eg.review tests), obtaining and/or reviewing separately otained hiistory, ordering medications,tests, procedures, referring, communicating with other health career technology teacher, indepentently interpreting results, counseling the patient and care coordination
[2025-02-01] MEDS: clonazePAM 0.5 MG TAB 2 MG PO (16:16)
[2025-02-01 18:25] LABS: Oxycodone Screen, U Presumptive Positive ng/mL (Cutoff: 100)
[2025-02-02 09:13] LABS: Xylazine, Confirmation Urine Negative ng/mL (<50)
[2025-02-05 11:15] LABS: Noroxycodone-by LC-MS/MS 107 ng/mL (Cutoff: 25); Noroxymorphone-by LC-MS/MS Negative ng/mL (Cutoff: 25); Oxycodone Interpretation Positive.; Oxycodone-by LC-MS/MS 487 ng/mL (Cutoff: 25); Oxymorphone-by LC-MS/MS 81 ng/mL (Cutoff: 25)
== END 2025-02-01 16:27 | disposition home or self-care (01) | DRG 917 ==
LOC: ER 01-31 02:10 → ICU 01-31 03:11 → MS 01-31 21:37
PROVIDERS: Admitting Provider Family Medicine; Emergency Provider Student in an Organized Health Care Education/Training Program; PCP Family Medicine; Responsible Provider Family Medicine; Visit Provider Family Medicine
DX: T43.212A Poisoning by selective serotonin and norepinephrine reuptake inhibitors, intentional self-harm, initial encounter (principal); J96.01 Acute respiratory failure with hypoxia; F11.20 Opioid dependence, uncomplicated; T40.2X2A Poisoning by other opioids, intentional self-harm, initial encounter; R00.1 Bradycardia, unspecified; F41.8 Other specified anxiety disorders; T50.902A Poisoning by unspecified drugs, medicaments and biological substances, intentional self-harm, initial encounter; I51.7 Cardiomegaly; K21.9 Gastro-esophageal reflux disease without esophagitis; J44.9 Chronic obstructive pulmonary disease, unspecified; Z79.899 Other long term (current) drug therapy; G43.909 Migraine, unspecified, not intractable, without status migrainosus; D64.9 Anemia, unspecified; K27.9 Peptic ulcer, site unspecified, unspecified as acute or chronic, without hemorrhage or perforation; G89.4 Chronic pain syndrome; F17.290 Nicotine dependence, other tobacco product, uncomplicated; G93.32 Myalgic encephalomyelitis/chronic fatigue syndrome; M75.51 Bursitis of right shoulder; F10.90 Alcohol use, unspecified, uncomplicated; Z63.0 Problems in relationship with spouse or partner; Z59.89 Other problems related to housing and economic circumstances
CPT/HCPCS: 00123; 36415; 36416; 51702; 80053; 80307; 80365; 80375; 82805; 82962; 85027; 93005; 96127; 96365; 99291; J1650; 80320; 80329; 81003; 81015; 81025; 83735; 84443; 84484; 85025; 87086; 93010; 99223; 99239; J0696

== ENCOUNTER 2025-03-05 02:11 | Outpatient (CLI) | payer MEDICARE, SELFPAY ==
--- NOTE | 2025-03-05 14:32 | DI.CTLCSR_ITS ---
Exam(s) CT CHEST LUNG CANCER SCREEN EXAM: CT CHEST LUNG CANCER SCREEN CLINICAL HISTORY: PERS HX NICOTINE DEPENDENCE Z87.891 SCREENING LUNG CANCER TECHNIQUE: Imaging Protocol: Axial computed tomography images with coronal and sagittal reformatted images were created and reviewed. Low dose screening protocol. COMPARISON: CT CHEST FOR PE, ABD PELVIS W from 06/12/2015 CR PORTABLE CHEST ONE VIEW from 09/13/2015 CR CHEST 2 VIEWS PA,LAT from 11/04/2015 CR XR CHEST 2V PA LATERAL from 12/10/2024 FINDINGS: Tracheobronchial tree: No bronchiectasis or mucus plugging. Mediastinum and Jihan: No dominant adenopathy or fluid collection. Pulmonary parenchyma: Mild basilar atelectasis. No consolidation or dominant measurable mass. Mild emphysematous changes. No significant interstitial changes. Lung Nodules: None. Pleura: No effusion. No pneumothorax. Heart: The heart is mildly dilated. Metallic device again noted. Mild coronary artery calcifications are seen. No pericardial effusion. Aorta: Thoracic aorta non-dilated. Upper abdomen: Unremarkable. Bones: Unremarkable for age. Soft Tissues: Unremarkable. IMPRESSION: No suspicious pulmonary nodules. Lung RADS Cat 1 - Negative: No nodules and definitely benign nodules Lung-RADS 1.0 CATEGORIES: Category 0 - Prior chest CT exam(s) being located for comparison. Category 1 - Annual screening in 12 months. No nodules or definitely benign nodules. Category 2 - Annual screening in 12 months. Benign appearance. Nodules with low likelihood of becoming active cancer. Category 3 - 6-month follow-up. Probably benign. Short-term follow-up suggested. Nodules with low likelihood of becoming active cancer. Category 4A - 3-month follow-up and CT/PET if >8 mm in size. Suspicious finding. Findings which require additional testing. Category 4B - Findings which require additional testing and tissue sampling. Category 4X - Category 3 or 4 nodules with additional features or imaging findings that increases the suspicion of malignancy. Modifier S- Potentially clinically significant findings (non lung cancer) RADIATION DOSE DELIVERED: Total DLP DATA REPOSITORY: All CT scans at this facility are submitted to the National Radiology Data Registry (NRDR) Dose Index Registry (DIR) with the [employer] (A[employer]). RADIATION OPTIMIZATION: All CT scans at this facility use at least one of these dose optimization techniques: automated exposure control; mA and/or kV adjustment per patient size (includes targeted exams where dose is matched to clinical indication); or iterative reconstruction.
== END 2025-03-05 02:31 ==
LOC: DI 02:11
PROVIDERS: PCP Family Medicine; Visit Provider Family Medicine
DX: Z12.2 Encounter for screening for malignant neoplasm of respiratory organs (principal); Z87.891 Personal history of nicotine dependence
CPT/HCPCS: 71271

== ENCOUNTER 2025-05-04 10:40 | Observation (INO) | payer MEDICARE, SELFPAY ==
[2025-05-04] VITALS (56 sets, daily range): BP systolic 110–200; BP diastolic 65–127; PULSE 51–165; RESP 9–33; TEMP 36–37.1; O2SAT 94–100
--- NOTE | 2025-05-04 10:45 | DI.RAD_ITS ---
Exam(s) XR PORTABLE CHEST AP EXAM: XR PORTABLE CHEST AP CLINICAL HISTORY: Shortness of breath TECHNIQUE: 2D digital imaging was performed of the chest. One image was obtained. An AP view was obtained. COMPARISON: CR XR ribs BI include chest from 08/24/2018 CR XR CHEST 2V PA LATERAL from 12/10/[address] CHEST LUNG CANCER SCREEN from 03/05/2025 FINDINGS: MEDIASTINUM: Normal. HEART: Normal. There is again seen an occlusion device in the heart. PULMONARY VASCULATURE: Normal. LUNGS: Clear. PLEURAL SPACE: No pleural effusion or pneumothorax. BONE:Within normal limits for the patient's age. OTHER FINDINGS:Normal. IMPRESSION: 1. No acute pulmonary findings. 2. The preliminary [facility] report was reviewed. DATA REPOSITORY: RADIATION DOSE DELIVERED:
--- NOTE | 2025-05-04 10:45 | RT.EKG_ITS ---
APPROVED REPORT Exam: Resting ECG Reason for Exam: rapid heart rate Patient Location: E HR:144 bpm ECG Measurements Heart Rate 144 AXIS OR [id number] P [id number] QRSd 82 QRS 46 QT 308 T 169 QTc 482 Conclusion Atrial flutter...A-rate 326 Ventricular premature complex...V complex w/ short R-R interval Repol abnrm suggests ischemia, diffuse leads...ST-T neg, ant/lat/inf No Occlusion HI
--- NOTE | 2025-05-04 10:51 | W.ED.GENAD ---
Discharge Plan Discharge Details Chief Complaint: SOB Clinical Impression: Atrial flutter with rapid ventricular response Admit Date/Time: 05/04/25 13:59 Admit Provider: Misael White Attending Provider: Misael White Primary Care Provider: Tahira Castrejon ED Provider: Adonay Llanos HPI General Date/Time Provider Initiated Documentation: 05/04/25 10:45. HPI Narrative: MDM This is a tachycardic normothermic 65-year-old female with remote history of pericarditis and atrial septal defect status postclosure 2016 with shortness of breath chest pain found to be in A-fib with RVR. Given tachycardia and illness will plan on drawing blood cultures treat empirically with ceftriaxone. In the setting of chest pain will obtain troponins. Equal breath sounds no trauma so doubt pneumothorax however will obtain a chest x-ray. Patient has no significant B-lines on bedside ultrasound so not suspicious for acute heart failure. Will treat with 500 cc of crystalloid and administered 0.25 mg/kg diltiazem. No pain on proportion to suggest necrotizing soft tissue infection. Will order urinalysis to assess for UTI.Patient is low risk for PE so we will send a D-dimer. Will swab for COVID and influenza. Her ECG shows atrial flutter at a rate of 144 bpm. Normal axis. QTc within normal limits. Left lateral chest wall ST segment depressions. No significant ST segment elevations. No T wave inversions. Compared to prior dated earlier this year atrial flutters is now. Will send a venous gas and a lactate. 11:30 AM Patient responded well to diltiazem and is now in a rate controlled atrial flutter. 11:30 AM Initial reassuring troponin. Reassuring proBNP. Normal reassuring magnesium. CBC with macrocytosis and erythrocytosis. No thrombocytopenia. No leukocytosis. Normal reassuring lactate. Venous gas lacks hypercarbia and acidemia. Comprehensive metabolic panel showing no HUGO. Mild hyperglycemia but no anion gap and normal bicarbonate??not consistent with DKA. No acute electrolyte abnormalities. No LFT abnormalities. 12 PM Reassuring negative D-dimer. 12:34 PM Urinalysis showing moderate leuk esterase nitrite negative??not consistent with UTI. Patient's heart rates back into the 140s. Will order a 60 mg of oral diltiazem and another 15 mg of IV diltiazem. 1:45 PM Patient is now in a sinus bradycardia at a rate of 49. Normal axis. Intervals within normal limits. No ST segment abnormalities. I was in touch with Dr. White who graciously agreed to accept patient for hospitalization. Updated patient and her friend. HPI This is a female with a history of bronchitis, anxiety, and heart failure in 2016 presenting with chest pain and shortness of breath. The patient was brought in by ambulance. Three weeks ago, the patient was diagnosed with bronchitis by her PCP. She was prescribed Z-Heladio, but her symptoms persisted. She then sought care at the respiratory department of [facility], where she was prescribed prednisone and doxycycline, which did not alleviate her symptoms. She has been self-medicating with Mucinex and buspirone. The patient reports experiencing chest pain, described as a stabbing sensation, which has been intermittent over the past few weeks. She also reports shortness of breath, which she attributes to her coughing. She has not experienced any unintentional weight gain or leg swelling. She has had occasional temperatures reaching around 99?F, accompanied by headaches. She has a history of heart failure in 2016 associated with necrotizing pancreatitis, but no stent placement. A recent scan revealed normal lung and heart function. The patient has severe anxiety and is currently on buspirone and risperidone for her anxiety but has been attempting to manage with only buspirone. Exam General: Well-appearing in no acute distress speaking in complete sentences. Head: Normocephalic, atraumatic. Eye: Extraocular eye movements intact. No conjunctival injection. No scleral icterus. Ear, nose, mouth, throat: Grossly normal inspection. Normal voice, handling secretions normally. Neck: Trachea midline. Cardiovascular: Well-perfused distal extremities. Rapid irregularly irregular rate. Respiratory: Nonlabored respiration. Equal breath sounds. No wheezes. No crackles. Gastrointestinal: Nondistended abdomen. Musculoskeletal: No significant lower extremity pitting edema. Moving all 4 extremities spontaneously. Skin: Normal for age and race, grossly normal temperature and turgor. No acute rash. Neurologic: Alert and appropriate, no apparent acute deficits. Related Data Home Medications ?Medication ?Instructions ?Recorded ?Confirmed aspirin 81 mg chewable tablet 81 mg PO DAILY 09/11/15 05/04/25 (Aspirin Low-Strength) multivitamin 1 tab PO DAILY 08/24/18 05/04/25 albuterol sulfate 90 mcg/actuation 2 puff inhalation Q6H PRN 12/31/21 05/04/25 aerosol inhaler (Ventolin HFA) fenofibrate nanocrystallized 145 54 mg PO DAILY 12/31/21 05/04/25 mg tablet (Tricor) hydrocortisone 2.5 % topical cream 1 applic topical BID PRN 12/31/21 05/04/25 ibuprofen 600 mg tablet 600 mg PO Q6H PRN 12/31/21 05/04/25 naloxone 4 mg/actuation nasal 4 mg intranasal Q2M PRN 12/31/21 05/04/25 spray (Narcan) ondansetron HCl 4 mg tablet 4 mg PO Q6H PRN 12/31/21 05/04/25 rosuvastatin 20 mg tablet 20 mg PO DAILY 12/31/21 05/04/25 sumatriptan succinate 100 mg tablet See Rx Instructions PO .COMPLEX 12/31/21 05/04/25 trazodone 100 mg tablet 100 mg PO HS 12/31/21 05/04/25 pantoprazole 40 mg tablet,delayed 40 mg PO DAILY 01/30/25 05/04/25 release clonazepam 2 mg tablet (Klonopin) 2 mg PO TID #21 tabs 02/01/25 05/04/25 buspirone 10 mg tablet 10 mg PO BID 05/04/25 05/04/25 fluticasone propionate 50 1 spray intranasal PRN 05/04/25 05/04/25 mcg/actuation nasal spray,suspension risperidone 0.5 mg tablet 0.5 mg PO BID 05/04/25 05/04/25 vitamin B complex-folic acid 0.4 1 tab PO ONCE 05/04/25 05/04/25 mg tablet (B Complex 1 (with folic acid)) Previous Rx's ?Medication ?Instructions ?Recorded clonazepam 2 mg tablet (Klonopin) 2 mg PO TID #21 tabs 02/01/25 Allergies Allergy/AdvReac Type Severity Reaction Status Date / Time adhesive Allergy Unknown Unknown Verified 05/04/25 14:39 atorvastatin (From Lipitor) Allergy Unknown Verified 05/04/25 14:39 bupropion (From Wellbutrin) Allergy Unknown Verified 05/04/25 14:39 gabapentin Allergy Unknown Verified 05/04/25 14:39 pregabalin (From Lyrica) Allergy Unknown Verified 05/04/25 14:39 Sulfa (Sulfonamide Allergy Unknown Verified 05/04/25 14:39 Antibiotics) ssri Allergy Unknown Uncoded 05/04/25 14:39 General Stated Complaint: SOB JONO: 3 Course Vital Signs Vital signs: Vital Signs Temperature 37.1 C 05/04/25 10:45 Pulse 139 H 05/04/25 10:45 Respiratory Rate 20 05/04/25 10:45 Blood Pressure 167/115 H 05/04/25 10:45 Pulse Oximetry 100 05/04/25 10:45 Temperature 37.1 C 05/04/25 10:49 Pulse 139 H 05/04/25 10:49 Respiratory Rate 20 05/04/25 10:49 Blood Pressure 167/115 H 05/04/25 10:49 Pulse Oximetry 100 05/04/25 10:49 Medical Decision Making Quality:SDOH Health Related Social Needs: Health related social needs house/econ circumstance lonely/isolated Health related social needs details not happy with current boyfriend PFSH All Active Problems (Updated 05/04/25 @ 13:12 by Adonay Llanos MD) Atrial flutter with rapid ventricular response (Acute) COPD (chronic obstructive pulmonary disease) (Chronic) GERD (gastroesophageal reflux disease) (Chronic) Depression with anxiety (Chronic) Bradycardia (Acute) Bursitis of right shoulder (Acute) Tendinitis of long head of biceps brachii of right shoulder (Acute) Right shoulder pain (Acute) Acute necrotizing pancreatitis (Acute) Chronic narcotic dependence (Chronic) Pleural effusion (Acute) Pericarditis (Acute) Pericardial effusion without cardiac tamponade (Acute) Chest pain, pleuritic (Acute) Chronic pain syndrome (Chronic) Anemia (Acute) Myalgia (Chronic) Peptic ulcer disease (Chronic) H/o Lyme disease (Chronic) Cardiomegaly (Chronic) Atrial septal defect (Chronic) Fracture dislocation of joint (Acute) Closed nondisplaced fracture of styloid process of right ulna (Acute) Other intraarticular fracture of lower end of right radius, initial encounter for closed fracture (Acute) Medical History Systemic candidiasis Primary fibromyalgia syndrome Chronic fatigue syndrome Chronic Lyme Disease Surgical History Oophrectomy, Right ? year secondary to torsion Cervical Conization/LEEP ? year and also cryo cauterizations ? Pap diagnosis Social History Smoking/Tobacco Use Status: Current every day Tobacco Type: e-cigarettes Smoking risk assessment performed?: Yes Alcohol Intake: current Alcohol Intake frequency: holidays/special occasions only Alcohol type: beer Drug use: Never Substance use type: does not use Housing: house Current gender identity: female Do you feel safe at home: Yes Do you feel safe in your relationship?: Yes Female Reproductive History Menstrual Age of Menarche: 17 Duration of menses: 6-7 days control method: none History History 3 Para 0 Hx # Term Pregnancies Multiple births Hx # Pregnancies Ectopic pregnancies AB induced Hx Number of Living Children AB spontaneous 3 POCUS Exam (ED) Limited Cardiac Exam DATE OF EXAM: 05/04/25 TIME OF EXAM: 11:30 PROVIDER THAT PERFORMED THE STUDY: Adonay Llanos IS THIS A REPEAT EXAM DURING THIS ENCOUNTER: no REASON FOR EXAM: Chest pain VISUALIZED STRUCTURES: Four Chambers, Left ventricle and LVOT VIEW OBTAINED: Apical 4-Chamber, Parasternal long-axis and Subxiphoid PERTINENT FINDINGS/IMPRESSION: No pericardial effusion and No RV dilation DIFFERENTIAL DIAGNOSES: Aortic outflow track less than 4 cm, good squeeze, RV less than LV, no significant pericardial effusion. No B-lines bilaterally. Exam complete
[2025-05-04 11:08] LABS: Abs Immature Grans 0.06 10^3/uL (0.0-0.06); HCT 48.4 % (36.0-46.0); HGB 16.5 g/dL (11.2-15.7); Immature Grans % 0.6 %; MCH 33.1 pg (27.0-33.0); MCHC 34.1 % (32.0-36.0); MCV 97 fL (80-95); MPV 8.6 fL (8.0-11.0); Platelet Count 280 10^3/uL (130-400); RBC 4.98 10^6/uL (3.93-5.22); RDW 11.9 % (11.7-14.6); RDW-SD 42.6 fL; WBC 9.25 10^3/uL (4.4-10.8)
[2025-05-04 11:11] LABS: BE (Venous) 4 mmol/L (-2-3); HCO3 (Venous) 29 mmol/L (23-28); O2 Sat (Venous) 78 %; TCO2 (Venous) 25 mmol/L (24-29); pCO2 (Venous) 48 mmHg (41-51); pO2 (Venous) 40 mmHg
[2025-05-04] MEDS: dilTIAZem 25 MG/5 ML VIAL 15 MG IVP ×2 (11:16→12:50)
[2025-05-04] MEDS: fentaNYL 100 MCG/2 ML VIAL 50 MCG IVP (11:22)
[2025-05-04] MEDS: Normal Saline 500 ML IV (11:24)
--- NOTE | 2025-05-04 11:30 | RT.EKG_ITS ---
APPROVED REPORT Exam: Resting ECG Reason for Exam: Shortness of breath Patient Location: E HR:88 bpm ECG Measurements Heart Rate 88 AXIS IN [id number] P [id number] QRSd 88 QRS 39 QT 409 T 80 QTc 500 Conclusion Atrial fibrillation...? atrial activity No Occlusion [facility]
[2025-05-04 11:33] LABS: Magnesium 1.8 mg/dL (1.6-2.6); Troponin I 4 ng/L (<35)
[2025-05-04 11:35] LABS: ALT 15 U/L (10-49); AST 23 U/L (<34); Albumin 4.2 g/dL (3.2-5.0); Alkaline Phosphatase 52 U/L (46-116); Anion Gap 6.9 mmol/L (3-11); BUN 13 mg/dL (9-23); Bilirubin, Total 0.90 mg/dL (0.2-1.2); CO2 29.1 mmol/L (20.0-31.0); Calcium 9.5 mg/dL (8.3-10.6); Chloride 106 mmol/L (98-107); Glucose 177 mg/dL (74-106); Potassium 3.8 mmol/L (3.5-5.1); Sodium 142 mmol/L (136-145); Total Protein 6.6 g/dL (5.7-8.2)
[2025-05-04 11:36] LABS: D-Dimer 272 ng/mlFEU (<500)
--- NOTE | 2025-05-04 11:58 | DI.VRAD_ITS ---
PROCEDURE INFORMATION: Exam: XR Chest Exam date and time: 05/04/2025 11:42 AM Age: 64 years old Clinical indication: Shortness of breath; SOB TECHNIQUE: Imaging protocol: Radiologic exam of the chest. Views: 1 view. COMPARISON: CT CHEST LUNG CANCER SCREEN 03/05/2025 2:26 PM FINDINGS: Lungs: Unremarkable. No consolidation. Pleural spaces: Unremarkable. No pleural effusion. No pneumothorax. Heart/Mediastinum: Cardiac valve replacement Bones/joints: Unremarkable. IMPRESSION: No acute findings. Dictated and Authenticated by: Padmaja Akins MD. Orderin Romi Urias MD
[2025-05-04] MEDS: cefTRIAXone 2 GM/50 ML BAG IVPB (12:12)
[2025-05-04 12:16] LABS: Troponin I 5 ng/L (<35)
[2025-05-04 12:25] LABS: Glucose Negative (Negative)
--- NOTE | 2025-05-04 12:30 | RT.EKG_ITS ---
APPROVED REPORT Exam: Resting ECG Reason for Exam: Tachycardia Patient Location: E HR:109 bpm ECG Measurements Heart Rate 109 AXIS OR [id number] P [id number] QRSd 82 QRS 38 QT 345 T [id number] QTc 466 Conclusion Atrial flutter with predominant 3:1 AV block...A-rate 312, multiple Ps No STEMI
[2025-05-04 12:40] LABS: RBC 0-2 HPF (0-2)
[2025-05-04] MEDS: dilTIAZem 30 MG TAB 60 MG PO (12:55)
--- NOTE | 2025-05-04 13:00 | RT.EKG_ITS ---
APPROVED REPORT Exam: Resting ECG Reason for Exam: Bradycardia Patient Location: E HR:49 bpm ECG Measurements Heart Rate 49 AXIS SD 162 P 38 QRSd 86 QRS 24 QT 434 T 57 QTc 393 Conclusion Sinus bradycardia...rate< 60 Probable left atrial enlargement...P >50mS, <-0.10mV V1 No Occlusion [place]
--- NOTE | 2025-05-04 14:05 | W.PM.HP.N ---
Date of service: 05/04/25 Time of Service: 13:30 Assessment and Plan Assessment and plan (1) Atrial flutter with rapid ventricular response: Status: Acute Assessment and plan: New onset, likely triggered by lengthy tussive illness Consider takotsubo with atrial enlargement Echo Tuesday if possible Started apixaban 5 BID Hold rate control meds due to bradycardia, repeat metoprolol 5 IV pushes as needed overnight Monitor on telemetry (2) Atrial septal defect: Status: Chronic Assessment and plan: Occlusive device placed 10 years ago for PFO closure Will consult [facility] cardiology and get echo (3) Depression with anxiety: Status: Chronic Assessment and plan: Continue home regimen History of Present Illness History of Present Illness Chief Complaint: weeks of respiratory illness, weak Narrative: Maricruz Best is a 64 year old woman presenting May 04 with 2-3 weeks of coughing which has been worsening, she now has post-tussive retching and rib pain. She has had shortness of breath and dizziness as well as nasal congestion. She is on disability. She has a history of a cardiac septum occlusive device placed 10 years ago. She is on disability for symptoms of weakness and pain that persisted after she had Lyme disease several years ago. She takes medication for anxiety and asthma. She has some chest tightness from coughing. No abdominal pain, no vomiting, no diarrhea. No history of arrhythmia. In the ED her heart rate was 139 and BP 167/115, vitals otherwise unremarkable. Initial EKG showed atrial flutter with atrial rate 326. She was given diltiazem IV pushes which resolved the tachycardia, resulting in mild bradycardia. She was also given fentanyl and an NS bolus, and started on ceftriaxone for possible PNA. Repeat EKG suggestive of atrial enlargement. CXR unremarkable. H&H mildly elevated, 16.5 / 48.4. Ddimer negative. Negative troponins. Elevated glucose 177. After admission patient had an episode of strong chest pain with tremors and anxiety. BP elevated to 180's / 100's. HR < 100. Troponin negative, no new findings on EKG. She was given small doses of morphine and ativan and a metoprolol push. PFSH All Active Problems (Updated 05/04/25 @ 19:40 by Misael White MD) Sustained SVT (Acute) New onset atrial flutter (Acute) Atrial flutter with rapid ventricular response (Acute) COPD (chronic obstructive pulmonary disease) (Chronic) GERD (gastroesophageal reflux disease) (Chronic) Depression with anxiety (Chronic) Bradycardia (Acute) Bursitis of right shoulder (Acute) Tendinitis of long head of biceps brachii of right shoulder (Acute) Right shoulder pain (Acute) Acute necrotizing pancreatitis (Acute) Chronic narcotic dependence (Chronic) Pleural effusion (Acute) Pericarditis (Acute) Pericardial effusion without cardiac tamponade (Acute) Chest pain, pleuritic (Acute) Chronic pain syndrome (Chronic) Anemia (Acute) Myalgia (Chronic) Peptic ulcer disease (Chronic) H/o Lyme disease (Chronic) Cardiomegaly (Chronic) Atrial septal defect (Chronic) Fracture dislocation of joint (Acute) Closed nondisplaced fracture of styloid process of right ulna (Acute) Other intraarticular fracture of lower end of right radius, initial encounter for closed fracture (Acute) Medical History Systemic candidiasis Primary fibromyalgia syndrome Chronic fatigue syndrome Chronic Lyme Disease Surgical History Oophrectomy, Right ? year secondary to torsion Cervical Conization/LEEP ? year and also cryo cauterizations ? Pap diagnosis Social History Smoking/Tobacco Use Status: Current every day Tobacco Type: e-cigarettes Smoking risk assessment performed?: Yes Alcohol Intake: current Alcohol Intake frequency: holidays/special occasions only Alcohol type: beer Drug use: Never Substance use type: does not use Housing: house Current gender identity: female Do you feel safe at home: Yes Do you feel safe in your relationship?: Yes Female Reproductive History Menstrual Age of Menarche: 17 Duration of menses: 6-7 days control method: none History History 3 Para 0 Hx # Term Pregnancies Multiple births Hx # Pregnancies Ectopic pregnancies AB induced Hx Number of Living Children AB spontaneous 3 Meds Allergies and Home Medications Allergies Allergy/AdvReac Type Severity Reaction Status Date / Time adhesive Allergy Unknown Unknown Verified 05/04/25 14:39 atorvastatin (From Lipitor) Allergy Unknown Verified 05/04/25 14:39 bupropion (From Wellbutrin) Allergy Unknown Verified 05/04/25 14:39 gabapentin Allergy Unknown Verified 05/04/25 14:39 pregabalin (From Lyrica) Allergy Unknown Verified 05/04/25 14:39 Sulfa (Sulfonamide Allergy Unknown Verified 05/04/25 14:39 Antibiotics) ssri Allergy Unknown Uncoded 05/04/25 14:39 Home Medications ?Medication ?Instructions ?Recorded ?Confirmed ?Type aspirin 81 mg chewable tablet 81 mg PO DAILY 09/11/15 05/04/25 History (Aspirin Low-Strength) multivitamin 1 tab PO DAILY 08/24/18 05/04/25 History albuterol sulfate 90 mcg/actuation 2 puff inhalation Q6H PRN 12/31/21 05/04/25 History aerosol inhaler (Ventolin HFA) fenofibrate nanocrystallized 145 54 mg PO DAILY 12/31/21 05/04/25 History mg tablet (Tricor) hydrocortisone 2.5 % topical cream 1 applic topical BID PRN 12/31/21 05/04/25 History ibuprofen 600 mg tablet 600 mg PO Q6H PRN 12/31/21 05/04/25 History naloxone 4 mg/actuation nasal 4 mg intranasal Q2M PRN 12/31/21 05/04/25 History spray (Narcan) ondansetron HCl 4 mg tablet 4 mg PO Q6H PRN 12/31/21 05/04/25 History rosuvastatin 20 mg tablet 20 mg PO DAILY 12/31/21 05/04/25 History sumatriptan succinate 100 mg tablet See Rx Instructions PO .COMPLEX 12/31/21 05/04/25 History trazodone 100 mg tablet 100 mg PO HS 12/31/21 05/04/25 History pantoprazole 40 mg tablet,delayed 40 mg PO DAILY 01/30/25 05/04/25 History release clonazepam 2 mg tablet (Klonopin) 2 mg PO TID #21 tabs 02/01/25 05/04/25 Rx buspirone 10 mg tablet 10 mg PO BID 05/04/25 05/04/25 History fluticasone propionate 50 1 spray intranasal PRN 05/04/25 05/04/25 History mcg/actuation nasal spray,suspension risperidone 0.5 mg tablet 0.5 mg PO BID 05/04/25 05/04/25 History vitamin B complex-folic acid 0.4 1 tab PO ONCE 11/29/25 11/29/25 History mg tablet (B Complex 1 (with folic acid)) Exam Narrative Exam Narrative: General: This is a pleasant woman in no distress HEENT: Normocephalic, atraumatic CV: RRR Resp: CTAB Abd: soft, NTND MSK: voluntary motion x4 Neuro: awake, alert, no focal deficits Results Labs 05/04/25 11:00 05/04/25 11:00 Labs: Laboratory Results - last 24 hr 05/04/25 05/04/25 05/04/25 10:53 11:00 11:15 WBC 9.25 Cancelled RBC 4.98 Cancelled Hgb 16.5 H Cancelled Hct 48.4 H Cancelled MCV 97 H Cancelled MCH 33.1 H Cancelled MCHC 34.1 Cancelled RDW 11.9 Cancelled Plt Count 280 Cancelled MPV 8.6 Cancelled Immature Gran % 0.6 Cancelled Neutrophils % 72.4 Cancelled Band Neutrophils % Cancelled Lymphocytes % 18.6 Cancelled Atypical Lymphs % Cancelled Monocytes % 7.1 Cancelled Eosinophils % 0.9 Cancelled Basophils % 0.4 Cancelled Metamyelocytes % Cancelled Myelocytes % Cancelled Promyelocytes % Cancelled Other Cells % Cancelled Nucleated RBC % 0.0 Cancelled Absolute Neutrophils 6.69 Cancelled Absolute Lymphocytes 1.72 Cancelled Absolute Monocytes 0.66 Cancelled Absolute Eosinophils 0.08 Cancelled Absolute Basophils 0.04 Cancelled RBC Morphology Cancelled Polychromasia Cancelled Hypochromasia Cancelled Poikilocytosis Cancelled Basophilic Stippling Cancelled Anisocytosis Cancelled Microcytosis Cancelled Macrocytosis Cancelled Spherocytes Cancelled Tear Drop Cells Cancelled Ovalocytes Cancelled Stomatocytes Cancelled [place] Bodies Cancelled Joseph Cells/Echinocytes Cancelled Acanthocytes (Spur) Cancelled Schistocytes Cancelled D-Dimer 272 VBG pH 7.40 VBG pCO2 48 VBG pO2 40 VBG HCO3 29 H VBG Total CO2 25 VBG O2 Saturation 78 VBG Base Excess 4 H VBG Lactate 1.9 Sodium 142 Potassium 3.8 Chloride 106 Carbon Dioxide 29.1 Anion Gap 6.9 BUN 13 Creatinine 0.97 Est GFR (CKD-EPI 2020) 57.48 Glucose 177 H Calcium 9.5 Magnesium 1.8 Total Bilirubin 0.90 AST 23 ALT 15 Alkaline Phosphatase 52 Troponin I 4 NT-Pro-B Natriuret Pep 230 Total Protein 6.6 Albumin 4.2 Urine Color Urine Clarity Urine pH Ur Specific [place] Urine Protein Urine Ketones Urine Blood Urine Nitrite Urine Bilirubin Urine Urobilinogen Ur Leukocyte Esterase Urine RBC Urine WBC Ur Epithelial Cells Urine Crystals Urine Bacteria Urine Casts Urine Mucus Urine Other Ur Culture Indicated? Urine Glucose ABO/Rh Cancelled Antibody Screen Cancelled 05/04/25 05/04/25 05/04/25 11:40 12:15 13:52 WBC RBC Hgb Hct MCV MCH MCHC RDW Plt Count MPV Immature Gran % Neutrophils % Band Neutrophils % Lymphocytes % Atypical Lymphs % Monocytes % Eosinophils % Basophils % Metamyelocytes % Myelocytes % Promyelocytes % Other Cells % Nucleated RBC % Absolute Neutrophils Absolute Lymphocytes Absolute Monocytes Absolute Eosinophils Absolute Basophils RBC Morphology Polychromasia Hypochromasia Poikilocytosis Basophilic Stippling Anisocytosis Microcytosis Macrocytosis Spherocytes Tear Drop Cells Ovalocytes Stomatocytes [place] Bodies Joseph Cells/Echinocytes Acanthocytes (Spur) Schistocytes D-Dimer VBG pH VBG pCO2 VBG pO2 VBG HCO3 VBG Total CO2 VBG O2 Saturation VBG Base Excess VBG Lactate Sodium Potassium Chloride Carbon Dioxide Anion Gap BUN Creatinine Est GFR (CKD-EPI 2020) Glucose Calcium Magnesium Total Bilirubin AST ALT Alkaline Phosphatase Troponin I 5 Cancelled NT-Pro-B Natriuret Pep Total Protein Albumin Urine Color Yellow Urine Clarity Clear Urine pH 7.5 Ur Specific [place] 1.015 Urine Protein Negative Urine Ketones Negative Urine Blood Negative Urine Nitrite Negative Urine Bilirubin Negative Urine Urobilinogen 0.2 Ur Leukocyte Esterase Moderate H Urine RBC 0-2 Urine WBC 10-20 H Ur Epithelial Cells Many Urine Crystals Negative Urine Bacteria Few Urine Casts Negative Urine Mucus Negative Urine Other Mod Transitional Ur Culture Indicated? No/Sq. Contamination Urine Glucose Negative ABO/Rh Antibody Screen Last Vital Signs Temp 37.1 C 05/04/25 10:49 Pulse 54 L 05/04/25 13:31 Resp 19 05/04/25 13:31 BP 157/77 H 05/04/25 13:31 Pulse Ox 96 05/04/25 13:31 VTE Prohylaxis Risk Level: Moderate/High Risk Contraindications: None Prophylaxis: Patient anticoagulated Time Spent Time spent with Patient: 55-74 minutes Time was spent: preparing to see the patient(eg.review tests), obtaining and/or reviewing separately otained hiistory, ordering medications,tests, procedures, referring, communicating with other health child care giver, indepentently interpreting results, counseling the patient and care coordination
--- NOTE | 2025-05-04 14:39 | W.PC.ACHO ---
Registration Status: REG ER Primary Language: Preferred Language: German ED Information & Data Chief Complaint SOB 05/04/25 10:55 Chief Complaint SOB 05/04/25 10:54 Triage Note been sick for weeks, hasnt 05/04/25 10:45 felt better. feels SOB, Dizzy, weak, congested, coughing. Medical / Surgical History (Last Reviewed 01/31/25 @ 01:50 by Elver Valdez) Drug use disorder Suicide attempt Overdose Systemic candidiasis Primary fibromyalgia syndrome Chronic fatigue syndrome Chronic Lyme Disease (Last Reviewed 01/31/25 @ 01:50 by Elver Valdez) Oophrectomy, Right Cervical Conization/LEEP Most Recent Vital Signs Temperature 37.1 C 05/04/25 10:49 Pulse 54 L 05/04/25 14:32 Pulse 55 L 05/04/25 14:32 Respiratory Rate 23 05/04/25 14:32 Respiratory Effort Normal 05/04/25 10:55 Respiratory Depth Normal 05/04/25 10:55 Respiratory Pattern Normal 05/04/25 10:55 Blood Pressure 150/71 H 05/04/25 14:31 Blood Pressure Mean 94 05/04/25 14:31 Pulse Oximetry 98 05/04/25 14:32 Allergies adhesive Allergy (Unknown, Verified 05/04/25 10:48) Unknown atorvastatin (From Lipitor) Allergy (Verified 05/04/25 10:48) Unknown bupropion (From Wellbutrin) Allergy (Verified 05/04/25 10:48) Unknown gabapentin Allergy (Verified 05/04/25 10:48) Unknown pregabalin (From Lyrica) Allergy (Verified 05/04/25 10:48) Unknown Sulfa (Sulfonamide Antibiotics) Allergy (Verified 05/04/25 10:48) Unknown ssri Allergy (Uncoded 05/04/25 10:48) Unknown Precautions Isolation Standard precaution 05/04/25 10:55 IV IV Catheter Type [Right Peripheral IV Antecubital] IV Catheter Gauge [Right 18 Antecubital] Diet Orders Category Date Time Status Heart Healthy Eating [DIET] Nutrition 05/04/25 Dinner Active Diagnostics 05/04/25 05/04/25 05/04/25 Range/Units 13:52 12:15 11:40 WBC (4.4-10.8) 10^3/uL RBC (3.93-5.22) 10^6/uL Hgb (11.2-15.7) g/dL Hct (36.0-46.0) % MCV (80-95) fL MCH (27.0-33.0) pg MCHC (32.0-36.0) % RDW (11.7-14.6) % Plt Count (130-400) 10^3/uL MPV (8.0-11.0) fL Immature Gran % % Neutrophils % % Band Neutrophils % Lymphocytes % % Atypical Lymphs % Monocytes % % Eosinophils % % Basophils % % Metamyelocytes % Myelocytes % Promyelocytes % Other Cells % Nucleated RBC % (0.0-0.3) % Absolute Neutrophils (1.2-6.7) 10^3/uL Absolute Lymphocytes (1.2-3.4) 10^3/uL Absolute Monocytes (0.1-0.8) 10^3/uL Absolute Eosinophils (0.0-0.7) 10^3/uL Absolute Basophils (0.0-0.2) 10^3/uL RBC Morphology Polychromasia Hypochromasia Poikilocytosis Basophilic Stippling Anisocytosis Microcytosis Macrocytosis Spherocytes Tear Drop Cells Ovalocytes Stomatocytes Guo-Embden Bodies [place] Cells/Echinocytes Acanthocytes (Spur) Schistocytes D-Dimer (<500) ng/mlFEU VBG pH (7.31-7.41) VBG pCO2 (41-51) mmHg VBG pO2 mmHg VBG HCO3 (23-28) mmol/L VBG Total CO2 (24-29) mmol/L VBG O2 Saturation % VBG Base Excess (-2-3) mmol/L VBG Lactate (<or=2.0) mmol/L Sodium (136-145) mmol/L Potassium (3.5-5.1) mmol/L Chloride (98-107) mmol/L Carbon Dioxide (20.0-31.0) mmol/L Anion Gap (3-11) mmol/L BUN (9-23) mg/dL Creatinine (0.55-1.02) mg/dL Est GFR (CKD-EPI 2020) (mL/min/1.73m2) Glucose (74-106) mg/dL Calcium (8.3-10.6) mg/dL Magnesium (1.6-2.6) mg/dL Total Bilirubin (0.2-1.2) mg/dL AST (<34) U/L ALT (10-49) U/L Alkaline Phosphatase (46-116) U/L Troponin I Cancelled 5 (<35) ng/L NT-Pro-B Natriuret Pep (<300) pg/mL Total Protein (5.7-8.2) g/dL Albumin (3.2-5.0) g/dL Urine Color Yellow (Yellow) Urine Clarity Clear (Clear) Urine pH 7.5 (5-8) Ur Specific [place] 1.015 (1.005-1.025) Urine Protein Negative (Neg-Trace) mg/dL Urine Ketones Negative (Negative) mg/dL Urine Blood Negative (Negative) Urine Nitrite Negative (Negative) Urine Bilirubin Negative (Negative) Urine Urobilinogen 0.2 (Up to 0.2) mg/dL Ur Leukocyte Esterase Moderate H (Negative) Urine RBC 0-2 (0-2) HPF Urine WBC 10-20 H (0-5) HPF Ur Epithelial Cells Many (Negative) HPF Urine Crystals Negative (Negative) HPF Urine Bacteria Few (Negative) HPF Urine Casts Negative (Negative) LPF Urine Mucus Negative (Negative) Urine Other Mod Transitional (Negative) Ur Culture Indicated? No/Sq. Contamination Urine Glucose Negative (Negative) mg/dL COVID-19 Source SARS-CoV-2 (PCR) Influenza Type A (PCR) Influenza Type B (PCR) RSV (PCR) ABO/Rh Antibody Screen 05/04/25 05/04/25 05/04/25 Range/Units 11:15 11:00 10:53 WBC Cancelled 9.25 (4.4-10.8) 10^3/uL RBC Cancelled 4.98 (3.93-5.22) 10^6/uL Hgb Cancelled 16.5 H (11.2-15.7) g/dL Hct Cancelled 48.4 H (36.0-46.0) % MCV Cancelled 97 H (80-95) fL MCH Cancelled 33.1 H (27.0-33.0) pg MCHC Cancelled 34.1 (32.0-36.0) % RDW Cancelled 11.9 (11.7-14.6) % Plt Count Cancelled 280 (130-400) 10^3/uL MPV Cancelled 8.6 (8.0-11.0) fL Immature Gran % Cancelled 0.6 % Neutrophils % Cancelled 72.4 % Band Neutrophils % Cancelled Lymphocytes % Cancelled 18.6 % Atypical Lymphs % Cancelled Monocytes % Cancelled 7.1 % Eosinophils % Cancelled 0.9 % Basophils % Cancelled 0.4 % Metamyelocytes % Cancelled Myelocytes % Cancelled Promyelocytes % Cancelled Other Cells % Cancelled Nucleated RBC % Cancelled 0.0 (0.0-0.3) % Absolute Neutrophils Cancelled 6.69 (1.2-6.7) 10^3/uL Absolute Lymphocytes Cancelled 1.72 (1.2-3.4) 10^3/uL Absolute Monocytes Cancelled 0.66 (0.1-0.8) 10^3/uL Absolute Eosinophils Cancelled 0.08 (0.0-0.7) 10^3/uL Absolute Basophils Cancelled 0.04 (0.0-0.2) 10^3/uL RBC Morphology Cancelled Polychromasia Cancelled Hypochromasia Cancelled Poikilocytosis Cancelled Basophilic Stippling Cancelled Anisocytosis Cancelled Microcytosis Cancelled Macrocytosis Cancelled Spherocytes Cancelled Tear Drop Cells Cancelled Ovalocytes Cancelled Stomatocytes Cancelled Guo-[place] Bodies Cancelled [place] Cells/Echinocytes Cancelled Acanthocytes (Spur) Cancelled Schistocytes Cancelled D-Dimer 272 (<500) ng/mlFEU VBG pH 7.40 (7.31-7.41) VBG pCO2 48 (41-51) mmHg VBG pO2 40 mmHg VBG HCO3 29 H (23-28) mmol/L VBG Total CO2 25 (24-29) mmol/L VBG O2 Saturation 78 % VBG Base Excess 4 H (-2-3) mmol/L VBG Lactate 1.9 (<or=2.0) mmol/L Sodium 142 (136-145) mmol/L Potassium 3.8 (3.5-5.1) mmol/L Chloride 106 (98-107) mmol/L Carbon Dioxide 29.1 (20.0-31.0) mmol/L Anion Gap 6.9 (3-11) mmol/L BUN 13 (9-23) mg/dL Creatinine 0.97 (0.55-1.02) mg/dL Est GFR (CKD-EPI 2020) 57.48 (mL/min/1.73m2) Glucose 177 H (74-106) mg/dL Calcium 9.5 (8.3-10.6) mg/dL Magnesium 1.8 (1.6-2.6) mg/dL Total Bilirubin 0.90 (0.2-1.2) mg/dL AST 23 (<34) U/L ALT 15 (10-49) U/L Alkaline Phosphatase 52 (46-116) U/L Troponin I 4 (<35) ng/L NT-Pro-B Natriuret Pep 230 (<300) pg/mL Total Protein 6.6 (5.7-8.2) g/dL Albumin 4.2 (3.2-5.0) g/dL Urine Color (Yellow) Urine Clarity (Clear) Urine pH (5-8) Ur Specific [place] (1.005-1.025) Urine Protein (Neg-Trace) mg/dL Urine Ketones (Negative) mg/dL Urine Blood (Negative) Urine Nitrite (Negative) Urine Bilirubin (Negative) Urine Urobilinogen (Up to 0.2) mg/dL Ur Leukocyte Esterase (Negative) Urine RBC (0-2) HPF Urine WBC (0-5) HPF Ur Epithelial Cells (Negative) HPF Urine Crystals (Negative) HPF Urine Bacteria (Negative) HPF Urine Casts (Negative) LPF Urine Mucus (Negative) Urine Other (Negative) Ur Culture Indicated? Urine Glucose (Negative) mg/dL COVID-19 Source SARS-CoV-2 (PCR) Influenza Type A (PCR) Influenza Type B (PCR) RSV (PCR) ABO/Rh Cancelled Antibody Screen Cancelled 05/04/25 Range/Units 10:45 WBC (4.4-10.8) 10^3/uL RBC (3.93-5.22) 10^6/uL Hgb (11.2-15.7) g/dL Hct (36.0-46.0) % MCV (80-95) fL MCH (27.0-33.0) pg MCHC (32.0-36.0) % RDW (11.7-14.6) % Plt Count (130-400) 10^3/uL MPV (8.0-11.0) fL Immature Gran % % Neutrophils % % Band Neutrophils % Lymphocytes % % Atypical Lymphs % Monocytes % % Eosinophils % % Basophils % % Metamyelocytes % Myelocytes % Promyelocytes % Other Cells % Nucleated RBC % (0.0-0.3) % Absolute Neutrophils (1.2-6.7) 10^3/uL Absolute Lymphocytes (1.2-3.4) 10^3/uL Absolute Monocytes (0.1-0.8) 10^3/uL Absolute Eosinophils (0.0-0.7) 10^3/uL Absolute Basophils (0.0-0.2) 10^3/uL RBC Morphology Polychromasia Hypochromasia Poikilocytosis Basophilic Stippling Anisocytosis Microcytosis Macrocytosis Spherocytes Tear Drop Cells Ovalocytes Stomatocytes Guo-Embden Bodies [place] Cells/Echinocytes Acanthocytes (Spur) Schistocytes D-Dimer (<500) ng/mlFEU VBG pH (7.31-7.41) VBG pCO2 (41-51) mmHg VBG pO2 mmHg VBG HCO3 (23-28) mmol/L VBG Total CO2 (24-29) mmol/L VBG O2 Saturation % VBG Base Excess (-2-3) mmol/L VBG Lactate (<or=2.0) mmol/L Sodium (136-145) mmol/L Potassium (3.5-5.1) mmol/L Chloride (98-107) mmol/L Carbon Dioxide (20.0-31.0) mmol/L Anion Gap (3-11) mmol/L BUN (9-23) mg/dL Creatinine (0.55-1.02) mg/dL Est GFR (CKD-EPI 2020) (mL/min/1.73m2) Glucose (74-106) mg/dL Calcium (8.3-10.6) mg/dL Magnesium (1.6-2.6) mg/dL Total Bilirubin (0.2-1.2) mg/dL AST (<34) U/L ALT (10-49) U/L Alkaline Phosphatase (46-116) U/L Troponin I (<35) ng/L NT-Pro-B Natriuret Pep (<300) pg/mL Total Protein (5.7-8.2) g/dL Albumin (3.2-5.0) g/dL Urine Color (Yellow) Urine Clarity (Clear) Urine pH (5-8) Ur Specific [place] (1.005-1.025) Urine Protein (Neg-Trace) mg/dL Urine Ketones (Negative) mg/dL Urine Blood (Negative) Urine Nitrite (Negative) Urine Bilirubin (Negative) Urine Urobilinogen (Up to 0.2) mg/dL Ur Leukocyte Esterase (Negative) Urine RBC (0-2) HPF Urine WBC (0-5) HPF Ur Epithelial Cells (Negative) HPF Urine Crystals (Negative) HPF Urine Bacteria (Negative) HPF Urine Casts (Negative) LPF Urine Mucus (Negative) Urine Other (Negative) Ur Culture Indicated? Urine Glucose (Negative) mg/dL COVID-19 Source Pending SARS-CoV-2 (PCR) Pending Influenza Type A (PCR) Pending Influenza Type B (PCR) Pending RSV (PCR) Pending ABO/Rh Antibody Screen 05/04/25 11:40 Blood Culture - Pending Blood 05/04/25 10:53 Blood Culture - Pending Blood Intake and Output - 24 Hour Total 05/04/25 10:40 thru 05/04/25 12:48 Intake Total 550 Balance 550 Weight 64.41 kg Intake: IV 550 Falls Risk Assessment History of Falls No History 05/04/25 10:55 Fall Total Score 0 05/04/25 10:55 Level of Risk Standard/Low Risk 05/04/25 10:55 Problems (Last Reviewed 01/31/25 @ 01:50 by Elver Valdez) Atrial flutter with rapid ventricular response (Acute) Attestation Statement: By documenting the first initial, last name, and credentials of the reporting nurse below, both parties acknowledge that all relevant information regarding the patient handoff has been communicated, and that all questions have been addressed to ensure continuity and safety of care. Additional Patient Information/Comments: report taken, pt much improved, BP high, HR in the mid 50's, o2 WNL. A&O x's 3, BF in room with pt. Report Received From: Rosa
--- NOTE | 2025-05-04 16:15 | RT.EKG_ITS ---
APPROVED REPORT Exam: Resting ECG Reason for Exam: chest pain Patient Location: I HR:91 bpm ECG Measurements Heart Rate 91 [place] [id number] P [id number] QRSd 106 QRS 37 QT 388 T 23 QTc 478 Conclusion Atrial fibrillation.
[2025-05-04] MEDS: MORPHine 2 MG/ML SYR 0.5 MG IVP ×2 (16:33→21:30)
[2025-05-04] MEDS: ALPRAZolam 0.25 MG TAB PO ×2 (16:34→21:31)
--- NOTE | 2025-05-04 16:40 | W.PM.HP.N ---
Date of service: 05/04/25 Time of Service: 16:40 Assessment and Plan Assessment and plan (1) Atrial flutter with rapid ventricular response: Status: Acute (2) COPD (chronic obstructive pulmonary disease): Status: Chronic (3) GERD (gastroesophageal reflux disease): Status: Chronic History of Present Illness Narrative: This is a 54-year-old female patient past medical history significant for COPD, GERD, anemia, atrial septal defect, cardiomegaly, pericardial effusion, pericarditis who presents to the emergency department with complaints of shortness of breath. She denies any chest pain fever or recent illness. Workup does show atrial fibs flutter rate in the 140s. She received diltiazem with rate control a flutter. Labs unremarkable with normal troponin BNP electrolytes kidney function and LFTs. Her rapid rate reoccurred and she received oral diltiazem and a dose of IV diltiazem but then became overcontrolled with a rate in the 40s and 50s. Blood pressure remained stable with no reports of chest pain. Hospitalist services contacted for observation on the medical surgical unit on telemetry for further monitoring and management. Review of Systems All systems reviewed & are unremarkable except as noted in HPI and below PFSH All Active Problems (Updated 05/04/25 @ 13:12 by Adonay Llanos MD) Atrial flutter with rapid ventricular response (Acute) COPD (chronic obstructive pulmonary disease) (Chronic) GERD (gastroesophageal reflux disease) (Chronic) Depression with anxiety (Chronic) Bradycardia (Acute) Bursitis of right shoulder (Acute) Tendinitis of long head of biceps brachii of right shoulder (Acute) Right shoulder pain (Acute) Acute necrotizing pancreatitis (Acute) Chronic narcotic dependence (Chronic) Pleural effusion (Acute) Pericarditis (Acute) Pericardial effusion without cardiac tamponade (Acute) Chest pain, pleuritic (Acute) Chronic pain syndrome (Chronic) Anemia (Acute) Myalgia (Chronic) Peptic ulcer disease (Chronic) H/o Lyme disease (Chronic) Cardiomegaly (Chronic) Atrial septal defect (Chronic) Fracture dislocation of joint (Acute) Closed nondisplaced fracture of styloid process of right ulna (Acute) Other intraarticular fracture of lower end of right radius, initial encounter for closed fracture (Acute) Medical History Systemic candidiasis Primary fibromyalgia syndrome Chronic fatigue syndrome Chronic Lyme Disease Surgical History Oophrectomy, Right ? year secondary to torsion Cervical Conization/LEEP ? year and also cryo cauterizations ? Pap diagnosis Social History Smoking/Tobacco Use Status: Current every day Tobacco Type: e-cigarettes Smoking risk assessment performed?: Yes Alcohol Intake: current Alcohol Intake frequency: holidays/special occasions only Alcohol type: beer Drug use: Never Substance use type: does not use Housing: house Current gender identity: female Do you feel safe at home: Yes Do you feel safe in your relationship?: Yes Female Reproductive History Menstrual Age of Menarche: 17 Duration of menses: 6-7 days control method: none History History 3 Para 0 Hx # Term Pregnancies Multiple births Hx # Pregnancies Ectopic pregnancies AB induced Hx Number of Living Children AB spontaneous 3 Meds Allergies and Home Medications Allergies Allergy/AdvReac Type Severity Reaction Status Date / Time adhesive Allergy Unknown Unknown Verified 05/04/25 14:39 atorvastatin (From Lipitor) Allergy Unknown Verified 05/04/25 14:39 bupropion (From Wellbutrin) Allergy Unknown Verified 05/04/25 14:39 gabapentin Allergy Unknown Verified 05/04/25 14:39 pregabalin (From Lyrica) Allergy Unknown Verified 05/04/25 14:39 Sulfa (Sulfonamide Allergy Unknown Verified 05/04/25 14:39 Antibiotics) ssri Allergy Unknown Uncoded 05/04/25 14:39 Home Medications ?Medication ?Instructions ?Recorded ?Confirmed ?Type aspirin 81 mg chewable tablet 81 mg PO DAILY 09/11/15 05/04/25 History (Aspirin Low-Strength) multivitamin 1 tab PO DAILY 08/24/18 05/04/25 History albuterol sulfate 90 mcg/actuation 2 puff inhalation Q6H PRN 12/31/21 05/04/25 History aerosol inhaler (Ventolin HFA) fenofibrate nanocrystallized 145 54 mg PO DAILY 12/31/21 05/04/25 History mg tablet (Tricor) hydrocortisone 2.5 % topical cream 1 applic topical BID PRN 12/31/21 05/04/25 History ibuprofen 600 mg tablet 600 mg PO Q6H PRN 12/31/21 05/04/25 History naloxone 4 mg/actuation nasal 4 mg intranasal Q2M PRN 12/31/21 05/04/25 History spray (Narcan) ondansetron HCl 4 mg tablet 4 mg PO Q6H PRN 12/31/21 05/04/25 History rosuvastatin 20 mg tablet 20 mg PO DAILY 12/31/21 05/04/25 History sumatriptan succinate 100 mg tablet See Rx Instructions PO .COMPLEX 12/31/21 05/04/25 History trazodone 100 mg tablet 100 mg PO HS 12/31/21 05/04/25 History pantoprazole 40 mg tablet,delayed 40 mg PO DAILY 01/30/25 05/04/25 History release clonazepam 2 mg tablet (Klonopin) 2 mg PO TID #21 tabs 02/01/25 05/04/25 Rx buspirone 10 mg tablet 10 mg PO BID 05/04/25 05/04/25 History fluticasone propionate 50 1 spray intranasal PRN 05/04/25 05/04/25 History mcg/actuation nasal spray,suspension risperidone 0.5 mg tablet 0.5 mg PO BID 05/04/25 05/04/25 History vitamin B complex-folic acid 0.4 1 tab PO ONCE 05/04/25 05/04/25 History mg tablet (B Complex 1 (with folic acid)) Results Labs 05/04/25 11:00 05/04/25 11:00 Labs: Laboratory Results - last 24 hr 05/04/25 05/04/25 05/04/25 10:53 11:00 11:15 WBC 9.25 Cancelled RBC 4.98 Cancelled Hgb 16.5 H Cancelled Hct 48.4 H Cancelled MCV 97 H Cancelled MCH 33.1 H Cancelled MCHC 34.1 Cancelled RDW 11.9 Cancelled Plt Count 280 Cancelled MPV 8.6 Cancelled Immature Gran % 0.6 Cancelled Neutrophils % 72.4 Cancelled Band Neutrophils % Cancelled Lymphocytes % 18.6 Cancelled Atypical Lymphs % Cancelled Monocytes % 7.1 Cancelled Eosinophils % 0.9 Cancelled Basophils % 0.4 Cancelled Metamyelocytes % Cancelled Myelocytes % Cancelled Promyelocytes % Cancelled Other Cells % Cancelled Nucleated RBC % 0.0 Cancelled Absolute Neutrophils 6.69 Cancelled Absolute Lymphocytes 1.72 Cancelled Absolute Monocytes 0.66 Cancelled Absolute Eosinophils 0.08 Cancelled Absolute Basophils 0.04 Cancelled RBC Morphology Cancelled Polychromasia Cancelled Hypochromasia Cancelled Poikilocytosis Cancelled Basophilic Stippling Cancelled Anisocytosis Cancelled Microcytosis Cancelled Macrocytosis Cancelled Spherocytes Cancelled Tear Drop Cells Cancelled Ovalocytes Cancelled Stomatocytes Cancelled [place] Bodies Cancelled [place] Cells/Echinocytes Cancelled Acanthocytes (Spur) Cancelled Schistocytes Cancelled D-Dimer 272 VBG pH 7.40 VBG pCO2 48 VBG pO2 40 VBG HCO3 29 H VBG Total CO2 25 VBG O2 Saturation 78 VBG Base Excess 4 H VBG Lactate 1.9 Sodium 142 Potassium 3.8 Chloride 106 Carbon Dioxide 29.1 Anion Gap 6.9 BUN 13 Creatinine 0.97 Est GFR (CKD-EPI 2020) 57.48 Glucose 177 H Calcium 9.5 Magnesium 1.8 Total Bilirubin 0.90 AST 23 ALT 15 Alkaline Phosphatase 52 Troponin I 4 NT-Pro-B Natriuret Pep 230 Total Protein 6.6 Albumin 4.2 Urine Color Urine Clarity Urine pH Ur Specific [place] Urine Protein Urine Ketones Urine Blood Urine Nitrite Urine Bilirubin Urine Urobilinogen Ur Leukocyte Esterase Urine RBC Urine WBC Ur Epithelial Cells Urine Crystals Urine Bacteria Urine Casts Urine Mucus Urine Other Ur Culture Indicated? Urine Glucose ABO/Rh Cancelled Antibody Screen Cancelled 05/04/25 05/04/25 05/04/25 11:40 12:15 13:52 WBC RBC Hgb Hct MCV MCH MCHC RDW Plt Count MPV Immature Gran % Neutrophils % Band Neutrophils % Lymphocytes % Atypical Lymphs % Monocytes % Eosinophils % Basophils % Metamyelocytes % Myelocytes % Promyelocytes % Other Cells % Nucleated RBC % Absolute Neutrophils Absolute Lymphocytes Absolute Monocytes Absolute Eosinophils Absolute Basophils RBC Morphology Polychromasia Hypochromasia Poikilocytosis Basophilic Stippling Anisocytosis Microcytosis Macrocytosis Spherocytes Tear Drop Cells Ovalocytes Stomatocytes [place] Bodies [place] Cells/Echinocytes Acanthocytes (Spur) Schistocytes D-Dimer VBG pH VBG pCO2 VBG pO2 VBG HCO3 VBG Total CO2 VBG O2 Saturation VBG Base Excess VBG Lactate Sodium Potassium Chloride Carbon Dioxide Anion Gap BUN Creatinine Est GFR (CKD-EPI 2020) Glucose Calcium Magnesium Total Bilirubin AST ALT Alkaline Phosphatase Troponin I 5 Cancelled NT-Pro-B Natriuret Pep Total Protein Albumin Urine Color Yellow Urine Clarity Clear Urine pH 7.5 Ur Specific [place] 1.015 Urine Protein Negative Urine Ketones Negative Urine Blood Negative Urine Nitrite Negative Urine Bilirubin Negative Urine Urobilinogen 0.2 Ur Leukocyte Esterase Moderate H Urine RBC 0-2 Urine WBC 10-20 H Ur Epithelial Cells Many Urine Crystals Negative Urine Bacteria Few Urine Casts Negative Urine Mucus Negative Urine Other Mod Transitional Ur Culture Indicated? No/Sq. Contamination Urine Glucose Negative ABO/Rh Antibody Screen Last Vital Signs Temp 36.5 C 05/04/25 15:23 Pulse 61 05/04/25 15:23 Resp 16 05/04/25 15:23 BP 156/93 H 05/04/25 15:23 Pulse Ox 97 05/04/25 15:23 PAWSS Have you Been Recently Intoxicated or Drunk Within the Last 30 days?: No Have you Ever Experienced Previous Episodes of Alcohol Withdrawal?: No Have you ever Experienced Withdrawal Seizures?: No Have you ever Experienced Delirium Tremens(DT)s?: No Have you ever undergone Alcohol Rehabilitation Treatment (i.e, inpt ot outpatient treatment programs)?: No Have you ever Experienced Blackouts?: No Have you ever Combined Alcohol with other Downers within the last 90 days?: No Have you ever Combined Alcohol with any other Substance of Abuse during the last 90 days?: No Positive Blood Alcohol level on Presentation? [PCS.BAL]: No Evidence of Increased Autonomic Activity (i.e. HR>120, tremor, sweating, agitation, nausea)?: No Result: 0
[2025-05-04 17:04] LABS: Troponin I 10 ng/L (<35)
[2025-05-04] MEDS: Metoprolol 5 MG/5 ML VIAL IVP ×2 (18:39→23:50)
[2025-05-04 21:17] LABS: COVID-19 PCR Negative (Negative); RSV PCR Negative (Negative)
[2025-05-04] MEDS: Apixaban 5 MG TAB PO (21:30)
[2025-05-04] MEDS: Normal Saline Flush 10 ML SYR (21:30)
[2025-05-04] MEDS: busPIRone 5 MG TAB 10 MG PO (21:30)
[2025-05-04] MEDS: risperiDONE 0.5 MG TAB PO (21:31)
[2025-05-04] MEDS: Mylanta Suspension 30 ML CUP PO (22:28)
--- NOTE | 2025-05-04 23:15 | RT.EKG_ITS ---
APPROVED REPORT Exam: Resting ECG Reason for Exam: Rhythm change Patient Location: I HR:122 bpm ECG Measurements Heart Rate 122 [place] [place] [id number] P [id number] QRSd 87 QRS 18 QT 288 T 221 QTc 411 Conclusion Atrial fibrillation. Repol abnrm suggests ischemia, diffuse leads...ST-T neg, ant/lat/inf
[2025-05-05] VITALS (10 sets, daily range): BP systolic 100–155; BP diastolic 56–96; PULSE 52–130; RESP 16–18; TEMP 36–36.8; O2SAT 96–98
--- NOTE | 2025-05-05 | RT.EKG_ITS ---
APPROVED REPORT Exam: Resting ECG Reason for Exam: Confirm back in NSR Patient Location: I HR:49 bpm ECG Measurements Heart Rate 49 [place] 165 P 37 QRSd 92 QRS 19 QT 450 T 68 QTc 407 Conclusion Sinus bradycardia...rate< 50 Borderline T abnormalities, anterior leads...T flat or neg, V2-V4
--- NOTE | 2025-05-05 00:16 | CE_ITS ---
Date of service: 05/05/25 Time of Service: 00:16 Event Note: This is a 64-year-old lady who was admitted with PAF and rapid ventricular response. She had chest discomfort 8 out of 10 which required a morphine low- dose and this was similar to her previous episode which was not anginal in nature. She responded well and had no more chest discomfort. She later in the evening began to have palpitations and it did return to atrial fibrillation with rapid ventricular response. She was in sinus bradycardia prior to this event. EKG did reveal similar ST-T changes though occurring more dramatic with LVH by voltage and troponin was performed and was stable at 6.6 though slightly up from 5.3 which is not significant. He was given IV metoprolol 5 mg and converted back to sinus rhythm. Her palpitations resolved. Repeat EKG showed sinus rhythm with no changes. Her magnesium was low normal and she was given 2 g of magnesium IV for replenishment with follow-up lab in the morning ordered with repeat troponin which was 5 and magnesium which was 2.2 mg/dL. Chart was reviewed with presentation, H&P and previous problem list as well as reviewing history with patient. Physical exam: When the patient was having atrial fibrillation and had just returned to sinus rhythm after metoprolol, she was slightly anxious but heart had bradycardic rate with regular rhythm and no appreciable murmur or gallop. Lungs were clear with some bronchovesicular breath sounds with the patient being a smoker after hospitalization. Rest of physical exam was normal. Assessment/plan: Recurrent atrial fibrillation with tachycardia responding to metoprolol. Patient blood pressure is stable and will be initiated on metopr olol 12.5 mg every 6 hours orally and if recurrent atrial fibrillation episodes she could be given a lower dose of metoprolol 2.5 mg. She is anticoagulated on Eliquis. Follow-up echocardiogram as planned. Long-term she needs a follow-up with cardiology with a history of atrial septal defect which she states was repaired and similar to those in the past when she was ill with necrotizing pancreatitis. She states that she did have a negative catheterization in the past. Stress testing may be appropriate with her ST-T changes during tachycardic atrial fibrillation though her troponins are negative. To which she seems to be response Time Spent with Patient Time spent in critical care(minutes): 45 Time Spent Included: Chart review, Documenting critically ill care, Time at immediate bedside and Other (Reviewed history with patient and counseling patient.)
[2025-05-05] MEDS: MAGNESIUM SULFATE 2 GM/50 ML BAG IV_INF (00:22)
[2025-05-05 01:00] LABS: Troponin I 6 ng/L (<35)
[2025-05-05] MEDS: Metoprolol 12.5 MG TAB PO ×4 (01:24→17:46)
[2025-05-05] MEDS: traZODone 100 MG TAB 200 MG PO ×2 (01:48→20:21)
[2025-05-05 06:08] LABS: HCT 41.2 % (36.0-46.0); HGB 14.0 g/dL (11.2-15.7); MCH 32.9 pg (27.0-33.0); MCHC 34.0 % (32.0-36.0); MCV 97 fL (80-95); MPV 8.8 fL (8.0-11.0); Platelet Count 188 10^3/uL (130-400); RBC 4.26 10^6/uL (3.93-5.22); RDW 11.8 % (11.7-14.6); RDW-SD 42.4 fL; WBC 6.43 10^3/uL (4.4-10.8)
[2025-05-05 06:37] LABS: Troponin I 5 ng/L (<35)
[2025-05-05 06:43] LABS: ALT 11 U/L (10-49); AST 16 U/L (<34); Albumin 3.6 g/dL (3.2-5.0); Alkaline Phosphatase 42 U/L (46-116); Anion Gap 8.7 mmol/L (3-11); BUN 13 mg/dL (9-23); Bilirubin, Total 0.60 mg/dL (0.2-1.2); CO2 25.3 mmol/L (20.0-31.0); Calcium 8.6 mg/dL (8.3-10.6); Chloride 109 mmol/L (98-107); Glucose 102 mg/dL (74-106); Magnesium 2.2 mg/dL (1.6-2.6); Potassium 4.1 mmol/L (3.5-5.1); Sodium 143 mmol/L (136-145); Total Protein 5.5 g/dL (5.7-8.2)
[2025-05-05] MEDS: Apixaban 5 MG TAB PO ×2 (08:31→20:20)
[2025-05-05] MEDS: busPIRone 5 MG TAB 10 MG PO ×2 (08:31→20:20)
[2025-05-05] MEDS: Aspirin 81 MG CHEW PO (08:31)
[2025-05-05] MEDS: risperiDONE 0.5 MG TAB PO ×2 (08:31→20:21)
--- NOTE | 2025-05-05 12:01 | PDOC.CMIN ---
Date of service: 05/05/25 Time of Service: 12:03 Care Management Initial Assmt Initial Assessment Reason for Hospitalization: afib with RVR Functional Status/Living Situation Patient Presentation: Maricruz presented to the ED yesterday morning with shortness of breath and chest pain. She was found to be in A-fib with RVR. She was started on IV abx for her illness, and required IVP diltiazem for her heart rate. After a second dose of dliltiazem, which was needed for another increase in HR, she became bradycardic. She has had 2 more events of tacchycardia since her admission to the floor, but resolved with IVP metoprolol. Maricruz [place] [facility] [place] for hx of ASD. She will have an echocardiogram tomorrow. She is pleased to know that [facility] [place] be reading the echo results, as [facility] [place] all of her cardiology records and she had an echo 2 years ago that they will be able to compare. Maricruz was just finishing up working with PT when CM met with her today. She was very friendly, and remembered CM from her last visit. She stated that last night prior to coming to the ER, she could hardly breathe and it was really frightening. She is feeling better, has not had an episode of increased heart rate since late last night. Maricruz was very tired, as she did not sleep much last night, and very politely asked that we keep our visit short. Town of Residence: [place] Resides with: Other (partner, Conrado. they have been together 20+ years) Significant Other/Family: Out of area (no family locally, has a good girl friend that is like family) Natural Supports: Conrado and her good friend Employment Status: Retired and Disabled Instrumental Activities of Daily Living (ADLs): Independent Activities/Hobbies/SocialSupport: enjoys playing [employer], travelling, does game night with her girlfriends Medications Medication Management: No Issues/Barriers identified Advance Directives Advance Directives: Do you have an Advance Directive: N 06/26/13, 14:42 AD On File at [facility]: N 13, 08:46 Date Asked 05/04/25 05/04/25, 10:41 AD Date Reviewed COLST On File at [facility] COLST Date Scanned Code Status Resuscitation Status Full Code Insurance Coverage/Financial Issues Insurance: BC/BS [place] [facility] Advantage Care Team Visit Care Team Role Provider Type Tahira Castrejon Primary Care Provider NON-[facility] STAFF PHYSICIAN InPatient Herb Lainez Other Providers OTHER Adonay Llanos MD Emergency Provider [facility] STAFF PHYSICIAN Misael White MD Admit Provider [facility] STAFF PHYSICIAN Attending Provider Discharge Potential Discharge Needs: Imaging/labs (cardiac echo scheduled for tomorrow - may need cardiology consult or f/u) and PCP F/U Appt Anticipated Barriers to Discharge: None Identified Patient/Family Education Needs: Review discharge instructions, discuss Ask Me Three Transportation: Private vehicle Plan: Anticipate that Maricruz will discharge home once medically cleared. She will f/u with her PCP and with her psychiatric clinical nurse specialist and continue per her plan of care. Maricruz will transport home in a private vehicle. CM will continue to follow through discharge and update the plan as needed. Social Determinants of Health Screening Social Determinants of health last assessed in clinic: 05/05/25 Will the Patient Participate in the Screening?: Yes Do you worry about having a steady place to live?: no Problems where you live: no known problems In the past 12 months, have you had to go without electric, gas, oil or water in your home?: no 1. Within the past 12 months, we worried whether our food would run out before we got money to buy more.: Don't know/refused 2. Within the past 12 months, the food we bought just didn't last and we didn't have money to get more.: Don't know/refused Has lack of transportation kept you from medical appointments or from doing things needed for daily living?: no Has anyone in your life made you feel unsafe or unsupported?: no How hard is it for you to pay for the very basics like food, housing, medical care, and heating? Would you say it is:: Not hard at all Do you want help finding or keeping work or a job?: I do not need or want help If for any reason you need help with day-to-day activities such as bathing, preparing meals, shopping, managing finances, etc., do you get the help you need?: I don?t need any help How often do you feel lonely or isolated from those around you?: Never Do you speak a language other than [place]itanian at home?: No Does the patient want assistance with any of the above?: No PFSH All Active Problems (Updated 05/04/25 @ 19:40 by Misael White MD) Sustained SVT (Acute) New onset atrial flutter (Acute) Atrial flutter with rapid ventricular response (Acute) COPD (chronic obstructive pulmonary disease) (Chronic) GERD (gastroesophageal reflux disease) (Chronic) Depression with anxiety (Chronic) Bradycardia (Acute) Bursitis of right shoulder (Acute) Tendinitis of long head of biceps brachii of right shoulder (Acute) Right shoulder pain (Acute) Acute necrotizing pancreatitis (Acute) Chronic narcotic dependence (Chronic) Pleural effusion (Acute) Pericarditis (Acute) Pericardial effusion without cardiac tamponade (Acute) Chest pain, pleuritic (Acute) Chronic pain syndrome (Chronic) Anemia (Acute) Myalgia (Chronic) Peptic ulcer disease (Chronic) H/o Lyme disease (Chronic) Cardiomegaly (Chronic) Atrial septal defect (Chronic) Fracture dislocation of joint (Acute) Closed nondisplaced fracture of styloid process of right ulna (Acute) Other intraarticular fracture of lower end of right radius, initial encounter for closed fracture (Acute) Medical History Systemic candidiasis Primary fibromyalgia syndrome Chronic fatigue syndrome Chronic Lyme Disease Surgical History Oophrectomy, Right ? year secondary to torsion Cervical Conization/LEEP ? year and also cryo cauterizations ? Pap diagnosis Social History Smoking/Tobacco Use Status: Current every day Tobacco Type: e-cigarettes Smoking risk assessment performed?: Yes Alcohol Intake: current Alcohol Intake frequency: holidays/special occasions only Alcohol type: beer Drug use: Never Substance use type: does not use Housing: house Current gender identity: female Do you feel safe at home: Yes Do you feel safe in your relationship?: Yes Female Reproductive History Menstrual Age of Menarche: 17 Duration of menses: 6-7 days control method: none History History 3 Para 0 Hx # Term Pregnancies Multiple births Hx # Pregnancies Ectopic pregnancies AB induced Hx Number of Living Children AB spontaneous 3
--- NOTE | 2025-05-05 13:45 | RT.EKG_ITS ---
APPROVED REPORT Exam: Resting ECG Reason for Exam: left side numb, arrhythmia Patient Location: I HR:54 bpm ECG Measurements Heart Rate 54 AXIS PA 152 P 15 QRSd 86 QRS 20 QT 437 T 55 QTc 415 Conclusion Sinus rhythm...normal P axis, V-rate 50- 99 Normal Electrocardiogram
--- NOTE | 2025-05-05 14:02 | IN_ITS ---
Date of service: 05/05/25 Time of Service: 13:33 PT Notes Visit Reasons: afib w/bradycardia Inpatient Physical Therapy Evaluation Certification Period:? From __05/05/25 ?? Through __05/07/25 I certify the need for these services as being medically necessary and skilled as furnished under this plan of treatment while under my care. Please sign and return within 14 days if you agree with the plan of care listed below.? Thank you for this referral! ? Referring Physician? Date Referring Doctor:? Misael White MD PT Orders: PT CONSULT for exacerbation of chronic condition Precautions: HR, new onset of numbness/weakness left UE and LE Patient Profile/Admitting Diagnosis:? The patient is a 64 yo female adm on 05/04/25 with atrial flutter with rapid ventricular response, new onset, likely triggered by lengthy tussive illness. She had 2-3 weeks of coughing which has been worsening, she now has post-tussive retching and rib pain. She has had sh ortness of breath and dizziness as well as nasal congestion. She is on disability. She has a history of a cardiac septum occlusive device placed 10 years ago. She is on disability for symptoms of weakness and pain that persisted after she had Lyme disease several years ago. She takes medication for anxiety and asthma. She has some chest tightness from coughing. No abdominal pain, no vomiting, no diarrhea. No history of arrhythmia. In the ED her heart rate was 139 and BP 167/115, vitals otherwise unremarkable. Initial EKG showed atrial flutter with atrial rate 326. She was given diltiazem IV pushes which resolved the tachycardia, resulting in mild bradycardia. She was also given fentanyl and an NS bolus, and started on ceftriaxone for possible PNA. Repeat EKG suggestive of atrial enlargement. CXR unremarkable. H&H mildly elevated, 16.5 / 48.4. Ddimer negative. Negative troponins. Elevated glucose 177. Past Medical History: All Active Problems (Updated 05/04/25 @ 19:40 by Misael White MD) Sustained SVT (Acute) New onset atrial flutter (Acute) Atrial flutter with rapid ventricular response (Acute) COPD (chronic obstructive pulmonary disease) (Chronic) GERD (gastroesophageal reflux disease) (Chronic) Depression with anxiety (Chronic) Bradycardia (Acute) Bursitis of right shoulder (Acute) Tendinitis of long head of biceps brachii of right shoulder (Acute) Right shoulder pain (Acute) Acute necrotizing pancreatitis (Acute) Chronic narcotic dependence (Chronic) Pleural effusion (Acute) Pericarditis (Acute) Pericardial effusion without cardiac tamponade (Acute) Chest pain, pleuritic (Acute) Chronic pain syndrome (Chronic) Anemia (Acute) Myalgia (Chronic) Peptic ulcer disease (Chronic) H/o Lyme disease (Chronic) Cardiomegaly (Chronic) Atrial septal defect (Chronic) Fracture dislocation of joint (Acute) Closed nondisplaced fracture of styloid process of right ulna (Acute) Other intraarticular fracture of lower end of right radius, initial encounter for closed fracture (Acute) Suicide attempt 01/31/25 Medical History Systemic candidiasis Primary fibromyalgia syndrome Chronic fatigue syndrome Chronic Lyme Disease Surgical History Oophrectomy, Right ? year secondary to torsion Cervical Conization/LEEP ? year and also cryo cauterizations ? Pap diagnosis Social History Smoking/Tobacco Use Status: Current every day Tobacco Type: e-cigarettes Medications: See chart Social History/Home Situation: Lives in [place] with her significant other, Tim. Reports she is normally very active with cooking, cleaning and yard work. Normally drives. Subjective: Reports she has had some left UE, including hand, left LE distal to knee numbness since her admission, but with increased numbness after today's ambulation Objective: Spoke with Dr. White and LALITO Luna after today's session of ambulation: left UE and LE weakness, stable HR with walking, but reports of increased numbness in left hand and below her knee. Dr. White was planning an EKG after today's ambulation. She plans to have this performed and to check in with the patient. Patient reported feeling a little funny upon therapist arrival in the room while sitting on the bed after toileting.symptoms disappeared after ~1 min. MD had reported that the patient is symptomatic with times of elevated HR. Mental Status: Patient is alert and oriented. Pain: No c/o pain but left knee feels a little stiff. Vital Signs: 11:15 by nursin/58, 60 bpm, 96 %. 65-70 bpm during amb per telemetry, into afib intermittently. ROM/Strength: Upper extremities: R UE 4+-5/5 grossly. L UE 3+/5 grossly. Lower extremities: R LE 5/5. L hip flexion 3+/5, knee extension, flexion, df 4/5 Sensation: chronic left lateral thigh numbness. New left UE and LE numbness as above. Soft tissue/edema: no gross abnormalities observed. Transfers: I in room Gait: Ambulated 500 feet without loss of balance without symptoms of pain or HR symptoms, but with increased numbness as described above. Balance: good Treatment: instructed in taking her own pulse, comparing to watch, knowing her baseline and when to see medical care (friend transport vs ambulance). instructed to avoid shoveling snow upon return home until f/u with her provider. [facility] AM-PAC 6 clicks Basic Mobility Inpatient Short Form: Raw Score:?23? CMS Score:11.2% Informed Consent/Education:? Patient instructed in purpose of PT consult and plan of care and is agreeable Assessment:? Patient is a?64 yo female adm on 05/04/25 with atrial flutter with rapid ventricular response, new onset, likely triggered by lengthy tussive illness..? Patient presents with decreased left UE and LE strength with decreased functional mobility from her baseline. The patient would benefit from skilled inpatient services to improve these impairments to maximize function and safety. Patient is assessed as:? Low 30603?complexity based on the following: History: new worsening of left UE and LE numbness Examination: see above Presentation: Stable and uncomplicated? Decision Making:? Low (0 history, 1-2 exam, stable/predictable, easy 20) Physical Therapy Goals: 2 days: Able to consistently mobilize in her room without symptoms. Able to ambulate 500 feet without symptoms consistently. Able to go up and down 2-3 steps with 1 rail with supervision only. Independent with home exercise program Plan of Care/Treatment Plan: 1x/day, x 2 days Plan of care has been reviewed with the SENIOR BUSINESS OBJECTS DEVELOPER providing the service under Physical Therapy direction. Initiate Physical Therapy intervention for strengthening, bed mobility, transfers, gait, stairs, balance training, use of assistive device. DISCHARGE RECOMMENDATIONS: none Informed consent Prior to the start and throughout the course of the examination and treatment, patient was made aware of the specifics and purpose of the physical assessment and treatment procedures. Appropriate draping procedures were utilized to protect modesty where applicable. Billing Charges: Treatment Units Time Duration Manual Therapy(32154) Hands-on techniques to modulate pain increase joint range of motion reduce or eliminate soft tissue swelling, inflammation, or restriction facilitate relaxation and improve contractile and non-contractile tissue extensibility ? ? Therapeutic Procedures (60012) Instruction in therapeutic exercises to develop strength and endurance, range of motion and flexibility. HEP instruction and review: Provided skilled instruction in proper exercise performance: Provided skilled manual cues to facilitate proper muscle recruitment and/or movement pattern Neurological Re-Education(29444) To improve balance, coordination, kinesthetic and proprioceptive sensations. ? ? Ultrasound(78204) To promote healing. ? ? Gait Training(27382) ? ? Therapeutic Activity(16012) Instruction in dynamic activities with one on one patient contact by the provider to improve functional performance as follows: 1 ? 13 ? Self Care Training(03325) ? ? E-Stim (Attended)(15549) ? ? Low IE(01600) 1 14 Mod IE(84900) ? ? High IE(98923) ? ? Time Coded Treatment Time ? Total Treatment Time ? 27
[2025-05-05] MEDS: ALPRAZolam 0.25 MG TAB PO ×2 (14:10→20:21)
--- NOTE | 2025-05-05 17:22 | PGE_ITS ---
Date of Service Date of service: 05/05/25 Time of Service: 08:00 Assessment and Plan Assessment and plan (1) Atrial flutter with rapid ventricular response: Status: Acute Assessment and plan: New onset, likely triggered by lengthy tussive illness Consider takotsubo with atrial enlargement Started apixaban 5 BID Metoprolol 12.5 PO BID started overnight May 04, increased to metoprolol 25 PO BID during the day. Echo Tuesday if possible (2) Atrial septal defect: Status: Chronic Assessment and plan: Occlusive device placed 10 years ago for PFO closure Recommend [facility] [place] consult after Tuesday echo (3) Depression with anxiety: Status: Chronic Assessment and plan: Continue home regimen Subjective Subjective Interval history since last seen: Ms. Best is comfortable in bed. Intermittent HR elevations treated with metoprolol PO. Awaiting echocardiogram, likely will need [facility] cardi[place] consult. Exam Narrative Exam Narrative: General: This is a pleasant woman in no distress HEENT: Normocephalic, atraumatic CV: RRR Resp: CTAB Abd: soft, NTND MSK: voluntary motion x4 Neuro: awake, alert, no focal deficits Objective Last Vital Signs Temp 36.8 C 05/05/25 14:34 Pulse 57 L 05/05/25 14:34 Resp 18 05/05/25 14:34 BP 155/79 H 05/05/25 14:34 Pulse Ox 97 05/05/25 14:34 Laboratory Results - last 24 hr 05/04/25 05/05/25 05/05/25 20:30 00:32 05:58 WBC 6.43 RBC 4.26 Hgb 14.0 D Hct 41.2 MCV 97 H MCH 32.9 MCHC 34.0 RDW 11.8 Plt Count 188 MPV 8.8 Sodium 143 Potassium 4.1 Chloride 109 H Carbon Dioxide 25.3 Anion Gap 8.7 BUN 13 Creatinine 0.93 Est GFR (CKD-EPI 2020) 60.34 Glucose 102 Calcium 8.6 Magnesium 2.2 Total Bilirubin 0.60 AST 16 ALT 11 Alkaline Phosphatase 42 L Troponin I 6 5 Total Protein 5.5 L Albumin 3.6 COVID-19 Source Nasopharynx SARS-CoV-2 (PCR) Negative Influenza Type A (PCR) Negative Influenza Type B (PCR) Negative RSV (PCR) Negative PAWSS Have you Been Recently Intoxicated or Drunk Within the Last 30 days?: No Have you Ever Experienced Previous Episodes of Alcohol Withdrawal?: No Have you ever Experienced Withdrawal Seizures?: No Have you ever Experienced Delirium Tremens(DT)s?: No Have you ever undergone Alcohol Rehabilitation Treatment (i.e, inpt ot outpatient treatment programs)?: No Have you ever Experienced Blackouts?: No Have you ever Combined Alcohol with other Downers within the last 90 days?: No Have you ever Combined Alcohol with any other Substance of Abuse during the last 90 days?: No Positive Blood Alcohol level on Presentation? [PCS.BAL]: No Evidence of Increased Autonomic Activity (i.e. HR>120, tremor, sweating, agitation, nausea)?: No Result: 0 VTE Prohylaxis Risk Level: Moderate/High Risk Contraindications: None Prophylaxis: Pharmacologic Time Spent with Patient Time Spent with Patient: 35-49 minutes Time was spent: preparing to see the patient(eg.review tests), obtaining and/or reviewing separately otained hiistory, ordering medications,tests, procedures, referring, communicating with other health child day care center worker, indepentently interpreting results, counseling the patient and care coordination
[2025-05-05] MEDS: Metoprolol CR 25 MG TABCR 12.5 MG PO (18:22)
[2025-05-06] VITALS (9 sets, daily range): BP systolic 104–163; BP diastolic 70–86; PULSE 47–73; RESP 17–18; TEMP 36.2–37.1; O2SAT 93–99
[2025-05-06] MEDS: ALPRAZolam 0.25 MG TAB PO ×2 (02:21→16:40)
[2025-05-06] MEDS: risperiDONE 0.5 MG TAB PO ×2 (09:07→21:39)
[2025-05-06] MEDS: Apixaban 5 MG TAB PO ×2 (09:07→21:40)
[2025-05-06] MEDS: Aspirin 81 MG CHEW PO (09:07)
[2025-05-06] MEDS: busPIRone 5 MG TAB 10 MG PO ×2 (09:07→21:39)
[2025-05-06] MEDS: Normal Saline Flush 10 ML SYR (10:53)
--- NOTE | 2025-05-06 11:46 | PT.DS ---
Weeks Elapsed: week(s) and 0 day(s) Patient Location: Med Surg Referring Provider: Date of Service: May 06, 2025 11:46 am PT Notes Visit Reasons: Afib with Bradycardia
--- NOTE | 2025-05-06 11:47 | PT.INDS ---
PT Notes Visit Reasons: Afib with Bradycardia Inpatient Physical Therapy Discharge Summary Dates: 05/06/2025 Dates of Service: 05/05/2025-05/06/2025 SUBJECTIVE: Pt reports she has been getting up and going to the bathroom. SHe states she has not had much sleep as she was very nervous about everything going on. She stated the RNTodd was very helpful overnight helping her to relax with breathing techniques. She also stated she participated in a Reiki session prior to PT entering her room which was helpful. OBJECTIVE: Pt presented supine in bed with her significant Other visiting Pt with telemetry in place Vitals: 146/86, HR 50, SaO2 97% on RA Pain: denies pain Strength: Upper extremities: R UE 4+-5/5 grossly. L UE 4/5 grossly. Lower extremities: R LE 5/5. L hip flexion 4/5, knee extension, flexion, df 4/5 BED MOBILITY/TRANSFERS: Supine-sit Independent Sit-supine Independent Sit-stand Independent Stand-sit Independent Bed-Chair Independent Chair-bed Independent GAIT: ambulates 600 feet without AD independently including directional changes and obstacle management, reciprocal pattern with no deviations. Stairs:3 4 steps? and 2 6 steps with Left rail ascending R descending x 3 trials supervision BALANCE: Static sitting Dynamic sitting Static standing Dynamic standing SPECIAL TESTS: AMPAC 24 indicating 0% deficit. ASSESSMENT: Pt participated in evaluation and 1 treatment session meeting all goals set at SOC. Pt is asymptomatic with ambulation and stair performance without AD. She is independently able to ambulate and perform the stairs with one rail on the left ascending.Pt tolerated 18 mins of standing activity without need for seated rest , increased HR, CP or dyspnea. No further skilled PT indicated at this time GOALS ( Met / Not Met): MET all goals below Goals: Able to consistently mobilize in her room without symptoms. Able to ambulate 500 feet without symptoms consistently. Able to go up and down 2-3 steps with 1 rail with supervision only. Independent with home exercise program DISCHARGE PLAN/RECOMMENDATIONS: Home with no services PT Treatment Time and Billing Codes: 60823/ [id number] Cheyenne Toscano PT
--- NOTE | 2025-05-06 13:30 | RT.EKG_ITS ---
APPROVED REPORT Exam: Resting ECG Reason for Exam: chest pain Patient Location: I HR:52 bpm ECG Measurements Heart Rate 52 AXIS MN 158 P 41 QRSd 80 QRS 33 QT 429 T 64 QTc 400 Conclusion Sinus bradycardia...rate< 60 Otherwise normal ECG
--- NOTE | 2025-05-06 14:14 | W.PM.PROGNOT ---
Date of Service Date of service: 05/06/25 Time of Service: 17:48 Assessment and Plan Assessment and plan (1) Atrial flutter with rapid ventricular response: Status: Acute Assessment and plan: New onset, likely triggered by lengthy tussive illness Echocardiogram reassuring, no change from previous Started apixaban 5 BID Metoprolol 12.5 PO BID started overnight May 04-, added 25mg q6h tartrate, but HR too low, continue just 12.5mg BID (2) Atrial septal defect: Status: Chronic Assessment and plan: Occlusive device placed 10 years ago for PFO closure In place on echo 05/06 (3) Depression with anxiety: Status: Chronic Assessment and plan: Continue home regimen, was able to get off benzos from last admission, states has been doing better. (4) GERD (gastroesophageal reflux disease): Status: Chronic Assessment and plan: may have caused chest pain, resumed pantoprazole. (5) Chest pain: Status: Inactive Assessment and plan: Reassuring EKG/troponins. Not c/w PE, resolved so no further work up. Likely GERD. Discharge Planning Discharge Planning: home when stable out of atrial fibrillation and chest pain fully evaluated, 05/07. Subjective Subjective Patient reports: tolerating a regular diet and voiding w/o difficulty; denies diarrhea, vomiting or fever Interval history since last seen: Events: NSR overnight Episode of 8/10 substernal sharp chest pain at around 12:15pm. She felt like her heart was racing but rates in 50s, she got a little short of breath and lightheaded. Feels posterior headache as well. EKG/troponins done. Lasted 45 minutes or so, has not recurred. Before this, she had been a little anxious but was okay. She had missed her pantoprazole for the past 3 days. Exam Narrative Exam Narrative: General: This is a pleasant woman in no distress, mild anxiety HEENT: Normocephalic, atraumatic CV: RRR Resp: CTAB Abd: soft, NTND ext: warm, no c/c/e Neuro: awake, alert, no focal deficits Objective Last Vital Signs Temp 36.4 C L 05/06/25 11:29 Pulse 55 L 05/06/25 13:30 Resp 18 05/06/25 13:30 BP 150/81 H 05/06/25 13:30 Pulse Ox 98 05/06/25 13:30 Objective Narrative Objective Narrative: EKG: Sinus bradycardia, no ST-T abnormalities, normal intervals PAWSS Have you Been Recently Intoxicated or Drunk Within the Last 30 days?: No Have you Ever Experienced Previous Episodes of Alcohol Withdrawal?: No Have you ever Experienced Withdrawal Seizures?: No Have you ever Experienced Delirium Tremens(DT)s?: No Have you ever undergone Alcohol Rehabilitation Treatment (i.e, inpt ot outpatient treatment programs)?: No Have you ever Experienced Blackouts?: No Have you ever Combined Alcohol with other Downers within the last 90 days?: No Have you ever Combined Alcohol with any other Substance of Abuse during the last 90 days?: No Positive Blood Alcohol level on Presentation? [PCS.BAL]: No Evidence of Increased Autonomic Activity (i.e. HR>120, tremor, sweating, agitation, nausea)?: No Result: 0 VTE Prohylaxis Risk Level: Moderate/High Risk Contraindications: None Prophylaxis: Patient anticoagulated Time Spent with Patient Time Spent with Patient: >50 minutes Time was spent: preparing to see the patient(eg.review tests), obtaining and/or reviewing separately otained hiistory, ordering medications,tests, procedures, referring, communicating with other health healthcare administrative assistant, indepentently interpreting results, counseling the patient and care coordination
[2025-05-06 14:54] LABS: Troponin I 4 ng/L (<35)
--- NOTE | 2025-05-06 16:16 | PHA.REVIEW2 ---
Pharmacy Admission Review Admission Clinical Review Admission Pharmacy Review: Atrial flutter with rapid ventricular response (Acute) adhesive Allergy (Unknown, Verified 05/04/25 14:39) Unknown atorvastatin (From Lipitor) Allergy (Verified 05/04/25 14:39) Unknown bupropion (From Wellbutrin) Allergy (Verified 05/04/25 14:39) Unknown gabapentin Allergy (Verified 05/04/25 14:39) Unknown pregabalin (From Lyrica) Allergy (Verified 05/04/25 14:39) Unknown Sulfa (Sulfonamide Antibiotics) Allergy (Verified 05/04/25 14:39) Unknown ssri Allergy (Uncoded 05/04/25 14:39) Unknown Resuscitation Status Full Code Height 5 ft 8 in Weight 65 kg Pharmacy Admission Review Renal Dosing Renal Dosing: BUN 13 mg/dL (9-23) 05/05/25 05:58 Creatinine 0.93 mg/dL (0.55-1.02) 05/05/25 05:58 Medications needing adjustments: Reviewed (SCR=0.9; CRCL=57ML/MIN-no dose adjustments at this time) Anticoagulation Anticoagulation: Hgb 14.0 g/dL (11.2-15.7) D 05/05/25 05:58 Hct 41.2 % (36.0-46.0) 05/05/25 05:58 Plt Count 188 10^3/uL (130-400) 05/05/25 05:58 Creatinine 0.93 mg/dL (0.55-1.02) 05/05/25 05:58 DVT Prophylaxis: Reviewed Medications: Apixaban Opiate Usage Evaluate Pain Scale/Pains Meds: Reviewed Scheduled Bowel Reg ordered if on Opiates?: Yes Relevant Labs Relevant Labs: Sodium 143 mmol/L (136-145) 05/05/25 05:58 Potassium 4.1 mmol/L (3.5-5.1) 05/05/25 05:58 Chloride 109 mmol/L (98-107) H 05/05/25 05:58 Magnesium 2.2 mg/dL (1.6-2.6) 05/05/25 05:58 Electrolytes, C-Reactive P, ESR: Reviewed (no intervention at this time) DM Control DM Control: Reviewed Insulin Dosing, Diabetic Medication: am [id number]; no history of dm Cardiac Review Cardiac Review: Troponin I 4 ng/L (<35) 12/01/25 14:27 NT-Pro-B Natriuret Pep 230 pg/mL (<300) 05/04/25 11:00 BP, HR, EF%: Reviewed (eb=650/82; hr=55 ) List meds needing interventions: metoprolol dose reduced due to bradycardia QTc Review QTc: Reviewed List meds needing interventions: hfh=101 IV to PO Switch IV Medications: Reviewed (all meds po ) Home Meds Relevent Home Meds Not ordered & why?: suggested to restart rosuvastatin and pantoprazole Current Meds Current Medication Order Review: Reviewed Pharmacy Antibiotic Review Comments: no antibiotics at this time
[2025-05-06] MEDS: Mylanta Suspension 30 ML CUP PO (16:40)
[2025-05-06 17:58] LABS: Lab Add On Test DONE
--- NOTE | 2025-05-06 18:08 | CMPROGNOTE_ITS ---
Date of service: 05/06/25 Time of Service: 18:08 Care Management Progress Note Progress Note Text Progress Note Text: Maricruz was sitting up in bed when CM met with her today. She was not feeling well at that time. Had an episode of chest pain earlier in the day that required a repeat EKG and lab work. CM went to meet with her again later in the day and she was feeling a lot better. She realized today that she has not been taking her heartburn medication. Her anxiety medication is PRN and at a much lower dose than she takes at home. She is wondering if these 2 things have contributed to the issues that she is having? Her RN did notify the provider of this. RN also gave Maricruz some Mylanta, and that did help relieve her pain and she was able to eat dinner. Maricruz is hopeful to go home tomorrow. Discharge Potential Discharge Needs: PCP F/U Appt and Other (cardiology f/u) Anticipated Barriers to Discharge: None Identified Patient/Family Education Needs: Review discharge instructions, discuss Ask Me Three Transportation: Private vehicle Plan: Anticipate that Maricruz will discharge home once medically cleared. She will f/u with her PCP and with her line service attendant and continue per her plan of care. Maricruz will transport home in a private vehicle. CM will continue to follow through discharge and update the plan as needed. Social Determinants of Health Screening Social Determinants of health last assessed in clinic: 05/06/25 Will the Patient Participate in the Screening?: Yes Do you worry about having a steady place to live?: no Problems where you live: no known problems In the past 12 months, have you had to go without electric, gas, oil or water in your home?: no 1. Within the past 12 months, we worried whether our food would run out before we got money to buy more.: Don't know/refused 2. Within the past 12 months, the food we bought just didn't last and we didn't have money to get more.: Don't know/refused Has lack of transportation kept you from medical appointments or from doing things needed for daily living?: no Has anyone in your life made you feel unsafe or unsupported?: no How hard is it for you to pay for the very basics like food, housing, medical care, and heating? Would you say it is:: Not hard at all Do you want help finding or keeping work or a job?: I do not need or want help If for any reason you need help with day-to-day activities such as bathing, preparing meals, shopping, managing finances, etc., do you get the help you need?: I don?t need any help How often do you feel lonely or isolated from those around you?: Never Do you speak a language other than [place] at home?: No Does the patient want assistance with any of the above?: No
[2025-05-06] MEDS: Pantoprazole 40 MG TABCR PO (18:12)
[2025-05-06 18:18] LABS: TSH (W/Ref FT4) 1.59 uIU/mL (0.55-4.78)
[2025-05-06] MEDS: Metoprolol CR 25 MG TABCR 12.5 MG PO (21:06)
[2025-05-06] MEDS: traZODone 100 MG TAB 200 MG PO (21:39)
[2025-05-06] MEDS: Rosuvastatin 20 MG TAB PO (21:40)
[2025-05-06 22:21] LABS: Troponin I 4 ng/L (<35)
[2025-05-07 03:25] VITALS: BP 137/72; PULSE 51; RESP 18; TEMP 36.5; O2SAT 96
[2025-05-07] MEDS: Pantoprazole 40 MG TABCR PO (07:18)
[2025-05-07 08:49] VITALS: BP 150/77; PULSE 51; RESP 17; TEMP 36.7; O2SAT 97
[2025-05-07 08:57] VITALS: PULSE 56
[2025-05-07] MEDS: Aspirin 81 MG CHEW PO (09:00)
[2025-05-07] MEDS: risperiDONE 0.5 MG TAB PO (09:00)
[2025-05-07] MEDS: Apixaban 5 MG TAB PO (09:00)
[2025-05-07] MEDS: Metoprolol CR 25 MG TABCR 12.5 MG PO (09:00)
[2025-05-07] MEDS: busPIRone 5 MG TAB 10 MG PO (09:00)
[2025-05-07] MEDS: ALPRAZolam 0.25 MG TAB PO (09:17)
--- NOTE | 2025-05-07 09:20 | DSE_ITS ---
Date of service: 05/07/25 Time of Service: 09:20 DS: Diagnosis Discharge Diagnosis (1) Atrial flutter with rapid ventricular response: Status: Acute (2) Atrial septal defect: Status: Chronic (3) Depression with anxiety: Status: Chronic (4) GERD (gastroesophageal reflux disease): Status: Chronic (5) Chest pain: Status: Inactive Discharge Plan Disposition Patient Disposition: Home Anticipated Discharge Date/Time: 05/07/25 12:17 Condition: Stable Discharge Details Reason For Visit: Afib with Bradycardia Admit Date/Time: 05/04/25 13:59 Admit Provider: Misael White Attending Provider: Misael White Primary Care Provider: Tahira Castrejon Hospital Course Hospital Course: 64 year old woman with COPD, anxiety, 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 She had some ST changes in diffuse leads on EKG during atrial fibrillation/RVR episodes, but these resolved when she converted back to sinus and she never had elevations of her troponins. Her rate was controlled with IV pushes of metoprolol and she was started on oral metoprolol at a low dose due to bradycardia. She did have another episode of chest pain on 05/06 while in sinus bradycardia without EKG changes, and this was felt to be related to GERD after missing her home pantoprazole since admission. For the last day of admission she had no further chest pain or atrial fibri llation and she felt well. Echocardiogram showed best LVEF, no thrombi and no displacement of her PFO closure device. Her [id number] score was 2-3 (3 if her history of CHF related to pericarditis included) and she was started on apixaban. Aspirin was stopped. Her pulse was in the 50s consistently at rest on metoprolol, and her blood pressure was not low. Her TSH was normal. She should follow up with her PCP in 1-2 weeks and make a follow up with her leather flesher when available. Home Meds and New Rx's Prescriptions: New metoprolol succinate 25 mg Tablet Extended Release 24 Hr 25 mg PO HS Qty: 30 0RF Eliquis 5 mg Tablet 5 mg PO BID Qty: 80 0RF Continued ondansetron HCl 4 mg tablet 4 mg PO Q6H PRN sumatriptan succinate 100 mg tablet See Rx Instructions PO .COMPLEX Rx Instructions: take 1 tab at onset of headache; if no relief, may repeat 1 tab after at least 2 hrs; max = 2 tabs/24 hrs PO hydrocortisone 2.5 % cream 1 applic topical BID PRN rosuvastatin 20 mg tablet 20 mg PO DAILY albuterol sulfate [Ventolin HFA] 90 mcg/actuation HFA aerosol inhaler 2 puff inhalation Q6H PRN fenofibrate nanocrystallized [Tricor] 145 mg tablet 54 mg PO DAILY trazodone 100 mg tablet 100 mg PO HS Patient Comments: 12/31/21- per [facility] med list- take 1-2 tab po every night (100 mg- 200 mg) pantoprazole 40 mg tablet,delayed release (DR/EC) 40 mg PO DAILY Patient Comments: TAKE ONE TABLET BY MOUTH EVERY DAY multivitamin Tablet 1 tab PO DAILY buspirone 10 mg tablet 10 mg PO BID Patient Comments: TAKE ONE TABLET BY MOUTH TWICE A DAY risperidone 0.5 mg tablet 0.5 mg PO BID Patient Comments: TAKE ONE TABLET BY MOUTH TWICE A DAY NEEDED FOR PANIC ATTACKS vitamin B complex-folic acid [B Complex 1 (with folic acid)] 0.4 mg tablet 1 tab PO ONCE Patient Comments: TAKE ONE TABLET BY MOUTH EVERY MORNING fluticasone propionate 50 mcg/actuation spray,suspension 1 spray INTRANASAL PRN Patient Comments: USE 2 SPRAYS INTO BOTH NOSTRILS ONCE DAILY NEEDED Discontinued ibuprofen 600 mg tablet 600 mg PO Q6H PRN naloxone [Narcan] 4 mg/actuation spray,non-aerosol 4 mg intranasal Q2M PRN Rx Instructions: spray 1 dose into ONE nostril; alternate nostrils w each dose until help arrives aspirin [Aspirin Low-Strength] 81 MG tablet,chewable 81 mg PO DAILY clonazepam [Klonopin] 2 mg tablet 2 mg PO TID Qty: 21 0RF Rx Instructions: stop alprazolam Discharge Instructions Instructions: Atrial Fibrillation and Atrial Flutter ED Additional Instructions: You had atrial flutter and fibrillation, which went back to normal. Stand Alone Forms: Portal Information Referrals: Chi Zhang [ NON-[facility] STAFF PHYSICIAN, Medicine] Regina Mayer [[employer], Care Management] Activity:: Activity as Tolerated Equipment/Supplies:: No Equipment Needed Diet:: As Tolerated Discharge Orders Discharge Orders: Discharge Order (Routine); Ordered 05/07/25 Ordered By: Adonay Espino DS: Summary Time Spent with Patient providing and/or coordinating discharge services: Greater than 30 minutes Status at Discharge Functional status at discharge: independent ambulation Overall status at discharge: patient is back to baseline Mental Status: mental status grossly normal Speech and Movement: speech and movement normal Mood: congruent mood and anxious mood Affect: normal affect Quality:SDOH Health Related Social Needs: Health related social needs house/econ circumstance lo clint/isolated Health related social needs details not happy with cur rent boyfriend Exam Narrative Exam Narrative: General: This is a pleasant woman in no distress, mild anxiety HEENT: Normocephalic, atraumatic CV: RRR Resp: CTAB Abd: soft, NTND ext: warm, no c/c/e Neuro: awake, alert, no focal deficits Psych Mental Status: mental status grossly normal Speech and Movement: speech and movement normal Mood: congruent mood and anxious mood Affect: normal affect DS: Data Vitals/I&O Vitals and I&O: Vital Signs Temperature 36.7 C 05/07/25 08:49 Temperature Source Temporal Artery Scan 05/07/25 08:49 Pulse 56 L 05/07/25 08:57 Pulse Rhythm Regular 05/04/25 15:23 Pulse 54 L 05/04/25 14:40 Respiratory Rate 17 05/07/25 08:49 Respiratory Effort Normal, Non-Labored 05/04/25 15:23 Respiratory Depth Normal 05/04/25 15:23 Respiratory Pattern Normal 05/04/25 15:23 Blood Pressure 150/77 H 05/07/25 08:49 Blood Pressure Mean 101 05/07/25 08:49 Pulse Oximetry 97 05/07/25 08:49 Oxygen Delivery Method Room Air 05/07/25 08:49 Oxygen Flow Rate 0 05/07/25 08:49 Pain Level 0 05/07/25 07:[address] Espino verbally notified as pt is c/o of 8/10 severe/sharp chest pain. 05/06/25 13:30 Intake & Output 05/06/25 05/06/25 05/07/25 11:59 23:59 11:59 Intake Total 400 / 650 250 / 650 Balance 400 / 650 250 / 650 Intake: IV Oral 400 / 640 240 / 640 Other: Urine Color Yellow Yellow Urine Odor Normal Normal Comment Pt takes herself to the restroom and flushes prior to this nurse being able to measure. Data Completed and Pending Pending Labs at Discharge: 05/04/25 05/04/25 05/04/25 10:53 11:00 11:15 WBC 9.25 Cancelled RBC 4.98 Cancelled Hgb 16.5 H Cancelled Hct 48.4 H Cancelled MCV 97 H Cancelled MCH 33.1 H Cancelled MCHC 34.1 Cancelled RDW 11.9 Cancelled Plt Count 280 Cancelled MPV 8.6 Cancelled Immature Gran % 0.6 Cancelled Neutrophils % 72.4 Cancelled Band Neutrophils % Cancelled Lymphocytes % 18.6 Cancelled Atypical Lymphs % Cancelled Monocytes % 7.1 Cancelled Eosinophils % 0.9 Cancelled Basophils % 0.4 Cancelled Metamyelocytes % Cancelled Myelocytes % Cancelled Promyelocytes % Cancelled Other Cells % Cancelled Nucleated RBC % 0.0 Cancelled Absolute Neutrophils 6.69 Cancelled Absolute Lymphocytes 1.72 Cancelled Absolute Monocytes 0.66 Cancelled Absolute Eosinophils 0.08 Cancelled Absolute Basophils 0.04 Cancelled RBC Morphology Cancelled Polychromasia Cancelled Hypochromasia Cancelled Poikilocytosis Cancelled Basophilic Stippling Cancelled Anisocytosis Cancelled Microcytosis Cancelled Macrocytosis Cancelled Spherocytes Cancelled Tear Drop Cells Cancelled Ovalocytes Cancelled Stomatocytes Cancelled [place] Bodies Cancelled Wilder Cells/Echinocytes Cancelled Acanthocytes (Spur) Cancelled Schistocytes Cancelled D-Dimer 272 VBG pH 7.40 VBG pCO2 48 VBG pO2 40 VBG HCO3 29 H VBG Total CO2 25 VBG O2 Saturation 78 VBG Base Excess 4 H VBG Lactate 1.9 Sodium 142 Potassium 3.8 Chloride 106 Carbon Dioxide 29.1 Anion Gap 6.9 BUN 13 Creatinine 0.97 Est GFR (CKD-EPI 2020) 57.48 Glucose 177 H Calcium 9.5 Magnesium 1.8 Total Bilirubin 0.90 AST 23 ALT 15 Alkaline Phosphatase 52 Troponin I 4 NT-Pro-B Natriuret Pep 230 Total Protein 6.6 Albumin 4.2 TSH Urine Color Urine Clarity Urine pH Ur Specific [place] Urine Protein Urine Ketones Urine Blood Urine Nitrite Urine Bilirubin Urine Urobilinogen Ur Leukocyte Esterase Urine RBC Urine WBC Ur Epithelial Cells Urine Crystals Urine Bacteria Urine Casts Urine Mucus Urine Other Ur Culture Indicated? Urine Glucose COVID-19 Source SARS-CoV-2 (PCR) Influenza Type A (PCR) Influenza Type B (PCR) RSV (PCR) Add-On Test Request ABO/Rh Cancelled Antibody Screen Cancelled 05/04/25 05/04/25 05/04/25 11:40 12:15 13:52 WBC RBC Hgb Hct MCV MCH MCHC RDW Plt Count MPV Immature Gran % Neutrophils % Band Neutrophils % Lymphocytes % Atypical Lymphs % Monocytes % Eosinophils % Basophils % Metamyelocytes % Myelocytes % Promyelocytes % Other Cells % Nucleated RBC % Absolute Neutrophils Absolute Lymphocytes Absolute Monocytes Absolute Eosinophils Absolute Basophils RBC Morphology Polychromasia Hypochromasia Poikilocytosis Basophilic Stippling Anisocytosis Microcytosis Macrocytosis Spherocytes Tear Drop Cells Ovalocytes Stomatocytes [place] Bodies Wilder Cells/Echinocytes Acanthocytes (Spur) Schistocytes D-Dimer VBG pH VBG pCO2 VBG pO2 VBG HCO3 VBG Total CO2 VBG O2 Saturation VBG Base Excess VBG Lactate Sodium Potassium Chloride Carbon Dioxide Anion Gap BUN Creatinine Est GFR (CKD-EPI 2020) Glucose Calcium Magnesium Total Bilirubin AST ALT Alkaline Phosphatase Troponin I 5 Cancelled NT-Pro-B Natriuret Pep Total Protein Albumin TSH Urine Color Yellow Urine Clarity Clear Urine pH 7.5 Ur Specific [place] 1.015 Urine Protein Negative Urine Ketones Negative Urine Blood Negative Urine Nitrite Negative Urine Bilirubin Negative Urine Urobilinogen 0.2 Ur Leukocyte Esterase Moderate H Urine RBC 0-2 Urine WBC 10-20 H Ur Epithelial Cells Many Urine Crystals Negative Urine Bacteria Few Urine Casts Negative Urine Mucus Negative Urine Other Mod Transitional Ur Culture Indicated? No/Sq. Contamination Urine Glucose Negative COVID-19 Source SARS-CoV-2 (PCR) Influenza Type A (PCR) Influenza Type B (PCR) RSV (PCR) Add-On Test Request ABO/Rh Antibody Screen 05/04/25 05/04/25 05/05/25 16:38 20:30 00:32 WBC RBC Hgb Hct MCV MCH MCHC RDW Plt Count MPV Immature Gran % Neutrophils % Band Neutrophils % Lymphocytes % Atypical Lymphs % Monocytes % Eosinophils % Basophils % Metamyelocytes % Myelocytes % Promyelocytes % Other Cells % Nucleated RBC % Absolute Neutrophils Absolute Lymphocytes Absolute Monocytes Absolute Eosinophils Absolute Basophils RBC Morphology Polychromasia Hypochromasia Poikilocytosis Basophilic Stippling Anisocytosis Microcytosis Macrocytosis Spherocytes Tear Drop Cells Ovalocytes Stomatocytes [place] Bodies Joseph Cells/Echinocytes Acanthocytes (Spur) Schistocytes D-Dimer VBG pH VBG pCO2 VBG pO2 VBG HCO3 VBG Total CO2 VBG O2 Saturation VBG Base Excess VBG Lactate Sodium Potassium Chloride Carbon Dioxide Anion Gap BUN Creatinine Est GFR (CKD-EPI 2020) Glucose Calcium Magnesium Total Bilirubin AST ALT Alkaline Phosphatase Troponin I 10 6 NT-Pro-B Natriuret Pep Total Protein Albumin TSH Urine Color Urine Clarity Urine pH Ur Specific [place] Urine Protein Urine Ketones Urine Blood Urine Nitrite Urine Bilirubin Urine Urobilinogen Ur Leukocyte Esterase Urine RBC Urine WBC Ur Epithelial Cells Urine Crystals Urine Bacteria Urine Casts Urine Mucus Urine Other Ur Culture Indicated? Urine Glucose COVID-19 Source Nasopharynx SARS-CoV-2 (PCR) Negative Influenza Type A (PCR) Negative Influenza Type B (PCR) Negative RSV (PCR) Negative Add-On Test Request ABO/Rh Antibody Screen 05/05/25 05/06/25 05/06/25 05:58 14:27 17:57 WBC 6.43 RBC 4.26 Hgb 14.0 D Hct 41.2 MCV 97 H MCH 32.9 MCHC 34.0 RDW 11.8 Plt Count 188 MPV 8.8 Immature Gran % Neutrophils % Band Neutrophils % Lymphocytes % Atypical Lymphs % Monocytes % Eosinophils % Basophils % Metamyelocytes % Myelocytes % Promyelocytes % Other Cells % Nucleated RBC % Absolute Neutrophils Absolute Lymphocytes Absolute Monocytes Absolute Eosinophils Absolute Basophils RBC Morphology Polychromasia Hypochromasia Poikilocytosis Basophilic Stippling Anisocytosis Microcytosis Macrocytosis Spherocytes Tear Drop Cells Ovalocytes Stomatocytes [place] Bodies Wilder Cells/Echinocytes Acanthocytes (Spur) Schistocytes D-Dimer VBG pH VBG pCO2 VBG pO2 VBG HCO3 VBG Total CO2 VBG O2 Saturation VBG Base Excess VBG Lactate Sodium 143 Potassium 4.1 Chloride 109 H Carbon Dioxide 25.3 Anion Gap 8.7 BUN 13 Creatinine 0.93 Est GFR (CKD-EPI 2020) 60.34 Glucose 102 Calcium 8.6 Magnesium 2.2 Total Bilirubin 0.60 AST 16 ALT 11 Alkaline Phosphatase 42 L Troponin I 5 4 NT-Pro-B Natriuret Pep Total Protein 5.5 L Albumin 3.6 TSH 1.59 Urine Color Urine Clarity Urine pH Ur Specific [place] Urine Protein Urine Ketones Urine Blood Urine Nitrite Urine Bilirubin Urine Urobilinogen Ur Leukocyte Esterase Urine RBC Urine WBC Ur Epithelial Cells Urine Crystals Urine Bacteria Urine Casts Urine Mucus Urine Other Ur Culture Indicated? Urine Glucose COVID-19 Source SARS-CoV-2 (PCR) Influenza Type A (PCR) Influenza Type B (PCR) RSV (PCR) Add-On Test Request DONE ABO/Rh Antibody Screen 05/06/25 19:45 WBC RBC Hgb Hct MCV MCH MCHC RDW Plt Count MPV Immature Gran % Neutrophils % Band Neutrophils % Lymphocytes % Atypical Lymphs % Monocytes % Eosinophils % Basophils % Metamyelocytes % Myelocytes % Promyelocytes % Other Cells % Nucleated RBC % Absolute Neutrophils Absolute Lymphocytes Absolute Monocytes Absolute Eosinophils Absolute Basophils RBC Morphology Polychromasia Hypochromasia Poikilocytosis Basophilic Stippling Anisocytosis Microcytosis Macrocytosis Spherocytes Tear Drop Cells Ovalocytes Stomatocytes [place] Bodies Wilder Cells/Echinocytes Acanthocytes (Spur) Schistocytes D-Dimer VBG pH VBG pCO2 VBG pO2 VBG HCO3 VBG Total CO2 VBG O2 Saturation VBG Base Excess VBG Lactate Sodium Potassium Chloride Carbon Dioxide Anion Gap BUN Creatinine Est GFR (CKD-EPI 2020) Glucose Calcium Magnesium Total Bilirubin AST ALT Alkaline Phosphatase Troponin I 4 NT-Pro-B Natriuret Pep Total Protein Albumin TSH Urine Color Urine Clarity Urine pH Ur Specific [place] Urine Protein Urine Ketones Urine Blood Urine Nitrite Urine Bilirubin Urine Urobilinogen Ur Leukocyte Esterase Urine RBC Urine WBC Ur Epithelial Cells Urine Crystals Urine Bacteria Urine Casts Urine Mucus Urine Other Ur Culture Indicated? Urine Glucose COVID-19 Source SARS-CoV-2 (PCR) Influenza Type A (PCR) Influenza Type B (PCR) RSV (PCR) Add-On Test Request ABO/Rh Antibody Screen Preliminary micro results at discharge 05/04/25 11:45 Blood Blood Culture - Preliminary NO GROWTH 48 HOURS 05/04/25 11:40 Blood Blood Culture - Preliminary NO GROWTH 48 HOURS PFSH All Active Problems (Updated 05/04/25 @ 19:40 by Misael White MD) Sustained SVT (Acute) New onset atrial flutter (Acute) Atrial flutter with rapid ventricular response (Acute) COPD (chronic obstructive pulmonary disease) (Chronic) GERD (gastroesophageal reflux disease) (Chronic) Depression with anxiety (Chronic) Bradycardia (Acute) Bursitis of right shoulder (Acute) Tendinitis of long head of biceps brachii of right shoulder (Acute) Right shoulder pain (Acute) Fracture dislocation of joint (Acute) Closed nondisplaced fracture of styloid process of right ulna (Acute) Other intraarticular fracture of lower end of right radius, initial encounter for closed fracture (Acute) Atrial septal defect (Chronic) Cardiomegaly (Chronic) H/o Lyme disease (Chronic) Peptic ulcer disease (Chronic) Myalgia (Chronic) Anemia (Acute) Chronic pain syndrome (Chronic) Chest pain, pleuritic (Acute) Pericardial effusion without cardiac tamponade (Acute) Pericarditis (Acute) Pleural effusion (Acute) Chronic narcotic dependence (Chronic) Acute necrotizing pancreatitis (Acute) Medical History Systemic candidiasis Primary fibromyalgia syndrome Chronic fatigue syndrome Chronic Lyme Disease Surgical History Oophrectomy, Right ? year secondary to torsion Cervical Conization/LEEP ? year and also cryo cauterizations ? Pap diagnosis Social History Smoking/Tobacco Use Status: Current every day Tobacco Type: e-cigarettes Smoking risk assessment performed?: Yes Alcohol Intake: current Alcohol Intake frequency: holidays/special occasions only Alcohol type: beer Drug use: Never Substance use type: does not use Housing: house Current gender identity: female Do you feel safe at home: Yes Do you feel safe in your relationship?: Yes Female Reproductive History Menstrual Age of Menarche: 17 Duration of menses: 6-7 days control method: none History History 3 Para 0 Hx # Term Pregnancies Multiple births Hx # Pregnancies Ectopic pregnancies AB induced Hx Number of Living Children AB spontaneous 3 Time Spent with Patient Time Spent with Patient: <45 minutes Time was spent: preparing to see the patient(eg.review tests), obtaining and/or reviewing separately otained hiistory, ordering medications,tests, procedures, referring, communicating with other health toddler caregiver, indepentently interpreting results, counseling the patient and care coordination
[2025-05-07 11:20] VITALS: BP 133/78; PULSE 49; RESP 17; TEMP 36.7; O2SAT 97
--- NOTE | 2025-05-07 11:32 | PDOC.CMDIS ---
Date of service: 05/07/25 Time of Service: 11:36 LACE Index Scoring Tool Questions: Length of Stay (in days): 3 Was the patient admitted via the E.D.?: Yes Comorbidities: Chronic Pulmonary Disease E.D. Visits: 3 Answers: Total Score: 11 Risk of Readmission: High Risk Care Management Discharge Plan Reason for Hospitalization: Afib with Bradycardia Discharge Plan: Maricruz will be discharged home today with no new services. It is recommended that she follow up with her community providers, director of programming, and discharge plan of care. She will transport home via private vehicle. Patient/Family Education Needs: Review of discharge instruction, activity, limitation, and discharge plan of care. Discuss ask me three. SDOH Health Related Social Needs: Health related social needs house/econ circumstance lonely/isolated Health related social needs details not happy with current boyfriend
== END 2025-05-07 11:55 | disposition home or self-care (01) ==
LOC: ER 14:18 → MS 14:53
PROVIDERS: Family Medicine; Admitting Provider Family Medicine; Emergency Provider Emergency Medicine; PCP Family Medicine; Responsible Provider Family Medicine; Visit Provider Family Medicine
DX: I48.92 Unspecified atrial flutter (principal); F41.8 Other specified anxiety disorders; K21.9 Gastro-esophageal reflux disease without esophagitis; R07.9 Chest pain, unspecified; J44.9 Chronic obstructive pulmonary disease, unspecified; R00.1 Bradycardia, unspecified; F11.20 Opioid dependence, uncomplicated; G89.4 Chronic pain syndrome; D64.9 Anemia, unspecified; K27.7 Chronic peptic ulcer, site unspecified, without hemorrhage or perforation; F17.290 Nicotine dependence, other tobacco product, uncomplicated; R25.1 Tremor, unspecified; I47.19 Other supraventricular tachycardia; I48.0 Paroxysmal atrial fibrillation; R94.31 Abnormal electrocardiogram [ECG] [EKG]; Z79.899 Other long term (current) drug therapy
CPT/HCPCS: 00123; 36415; 80053; 82805; 85027; 86850; 86900; 86901; 87040; 87637; 93005; 93308; 96365; 96375; 96376; 97161; 97530; 99285; 71045; 81003; 81015; 83605; 83735; 83880; 84443; 84484; 85025; 85379; 93010; 93306; 99222; 99232; 99233; 99238; 99291; G0378; J0696; J2270; J3010; J3475; J3490

== ENCOUNTER → 2025-05-14 11:06 | Outpatient (BNVA) | payer MEDICARE, SELFPAY | PROVIDERS: PCP Family Medicine; Referring Provider Family Medicine; Visit Provider Student in an Organized Health Care Education/Training Program | DX: K21.9 Gastro-esophageal reflux disease without esophagitis (principal) | CPT/HCPCS: 99213 ==

== ENCOUNTER 2025-05-29 07:49 | Day surgery (SDC) | payer MEDICARE, SELFPAY ==
[2025-05-29 07:51] VITALS: BP 161/104; PULSE 50; RESP 18; TEMP 36.3; O2SAT 98
[2025-05-29] MEDS: Lactated Ringers 1,000 ML 80 ML IV (08:07)
--- NOTE | 2025-05-29 08:12 | W.ANESPRE ---
General Info Date of Service Date Performed: 05/29/25 Height: 5 ft 8.5 in Weight: 69.5 kg Body Mass Index (BMI): 22.9 Surgical Procedure: Operation Date: 05/29/25 09:05 Proposed Procedure Side Surgeon p Gastroscopy Xiomara Boateng MD Actual Procedure Side Surgeon p Gastroscopy Not Applicable Xiomara Boateng MD Pre-Op Diagnosis Post-Op Diagnosis GERD Meds Allergies and Home Medications Allergies Allergy/AdvReac Type Severity Reaction Status Date / Time doxycycline Allergy Severe Hives Verified 05/29/25 08:06 adhesive Allergy Unknown Unknown Verified 05/29/25 08:06 atorvastatin (From Lipitor) Allergy Unknown Verified 05/29/25 08:06 bupropion (From Wellbutrin) Allergy Unknown Verified 05/29/25 08:06 gabapentin Allergy Unknown Verified 05/29/25 08:06 pregabalin (From Lyrica) Allergy Unknown Verified 05/29/25 08:06 Sulfa (Sulfonamide Allergy Unknown Verified 05/29/25 08:06 Antibiotics) ssri Allergy Unknown Uncoded 05/29/25 08:06 Home Medication ?Medication ?Instructions ?Recorded multivitamin 1 tab PO DAILY 08/24/18 albuterol sulfate 90 mcg/actuation 2 puff inhalation Q6H PRN 12/31/21 aerosol inhaler (Ventolin HFA) fenofibrate nanocrystallized 145 54 mg PO DAILY 12/31/21 mg tablet (Tricor) ondansetron HCl 4 mg tablet 4 mg PO Q6H PRN 12/31/21 rosuvastatin 20 mg tablet 20 mg PO DAILY 12/31/21 sumatriptan succinate 100 mg tablet See Rx Instructions PO .COMPLEX 12/31/21 trazodone 100 mg tablet 100 mg PO HS 12/31/21 pantoprazole 40 mg tablet,delayed 40 mg PO DAILY 01/30/25 release buspirone 10 mg tablet 10 mg PO BID 05/04/25 fluticasone propionate 50 1 spray intranasal PRN 05/04/25 mcg/actuation nasal spray,suspension risperidone 0.5 mg tablet 0.5 mg PO BID 05/04/25 vitamin B complex-folic acid 0.4 1 tab PO ONCE 05/04/25 mg tablet (B Complex 1 (with folic acid)) apixaban 5 mg tablet (Eliquis) 5 mg PO BID #80 tabs 05/07/25 metoprolol succinate 25 mg 25 mg PO HS #30 tabs 05/07/25 tablet,extended release 24 hr cyanocobalamin (vitamin B-12) 1,000 mcg PO DAILY 05/13/25 1,000 mcg capsule magnesium citrate 125 mg capsule 125 mg PO DAILY 05/13/25 Current Visit Medications: Current Medications Generic Name Dose Route Start Last Admin Trade Name Freq PRN Reason Stop Dose Admin Ringer's Solution 1,000 mls @ 80 mls/hr 05/29/25 06:00 05/29/25 08:07 IV 05/29/25 23:59 80 mls/hr INFUSION DAISHA Administration Sodium Chloride 0 ml 05/29/25 06:00 Normal Saline Flush 10 Ml Syr IV 05/29/25 23:59 PRN PRN Sodium Chloride 0 ml 05/29/25 06:00 Normal Saline 10 Ml Vial IJ 05/29/25 23:59 DIRECTED PRN Sterile Water 0 ml 05/29/25 06:00 Water,Injection,Sterile 10 Ml Vial IJ 05/29/25 23:59 DIRECTED PRN PFSH Active Problems Active Problems: Problem Status Onset Code Dental caries Acute K02.9 Hyperlipidemia Acute E78.5 Osteoarthritis Chronic M19.90 Insomnia Acute G47.00 Hearing loss Acute H91.90 Smoker Acute F17.200 FREEMAN (generalized anxiety disorder) Acute F41.1 Hypertriglyceridemia Acute E78.1 Sustained SVT Acute I47.10 New onset atrial flutter Acute I48.92 COPD (chronic obstructive pulmonary disease) Chronic J44.9 GERD (gastroesophageal reflux disease) Chronic K21.9 Depression with anxiety Chronic F41.8 Bradycardia Acute R00.1 Bursitis of right shoulder Acute M75.51 Tendinitis of long head of biceps brachii of right shoulder Acute M75.21 Right shoulder pain Acute M25.511 Acute necrotizing pancreatitis Acute K85.9 Chronic narcotic dependence Chronic F11.20 Pleural effusion Acute J90 Pericarditis Acute I31.9 Pericardial effusion without cardiac tamponade Acute I31.9 Chest pain, pleuritic Acute R07.81 Chronic pain syndrome Chronic G89.4 Anemia Acute D64.9 Myalgia Chronic M79.1 Peptic ulcer disease Chronic K27.9 H/o Lyme disease Chronic Z86.19 Cardiomegaly Chronic I51.7 Fracture dislocation of joint Acute T14.8XXA Closed nondisplaced fracture of styloid process of right ulna Acute S52.614A Other intraarticular fracture of lower end of right radius, initial encounter for closed fracture Acute S52.571A Medical History Medical History Non-scarring alopecia Old myocardial infarction Hemorrhoids Episodic migraine Atrial flutter with rapid ventricular response Atrial septal defect Drug use disorder Suicide attempt Overdose Systemic candidiasis Primary fibromyalgia syndrome Chronic fatigue syndrome Chronic Lyme Disease Surgical History Surgical History Hx of umbilical hernia repair (~2007) Hx of appendectomy (~2007) Hx of Achilles tendon repair (~2007) History of colonoscopy (~02/2021) Oophrectomy, Right ? year secondary to torsion Cervical Conization/LEEP ? year and also cryo cauterizations ? Pap diagnosis Tobacco Smoking/Tobacco Use Status: Current every day Tobacco Type: cigarettes Smoking cigarettes per day: 4 Alcohol Alcohol Intake: current Alcohol intake frequency: holidays/special occasions only Alcohol type: beer Substance Use Substance use: Never Substance use type: does not use Details: 1x cigarette this AM Prental History History 3 Para 0 Hx # Term Pregnancies Multiple births Hx # Pregnancies Ectopic pregnancies AB induced Hx Number of Living Children AB spontaneous 3 Vital Signs and Lab Results Vital Signs Most Recent Vital Signs in EMR: Most Recent Vital Signs Temp Pulse Resp BP Pulse Ox 36.3 C L 50 L 18 161/104 H 98 05/29/25 07:51 05/29/25 07:51 05/29/25 07:51 05/29/25 07:51 05/29/25 07:51 Lab Results Complete Blood Count: WBC, (4.4-10.8) 6.43 10^3/uL 05/05/25, 05:58 RBC, (3.93-5.22) 4.26 10^6/uL 05/05/25, 05:58 Hgb, (11.2-15.7) 14.0 g/dL ? 05/05/25, 05:58 Hct, (36.0-46.0) 41.2 % 05/05/25, 05:58 Plt Count, (130-400) 188 10^3/uL 05/05/25, 05:58 VBG Lactate, (<or=2.0) 1.9 mmol/L 05/04/25, 11:00 Complete Metabolic Panel: Sodium, (136-145) 143 mmol/L 05/05/25, 05:58 Potassium, (3.5-5.1) 4.1 mmol/L 05/05/25, 05:58 Chloride, (98-107) 109 mmol/L H 05/05/25, 05:58 Carbon Dioxide, (20.0-31.0) 25.3 mmol/L 05/05/25, 05:58 BUN, (9-23) 13 mg/dL 05/05/25, 05:58 Creatinine, (0.55-1.02) 0.93 mg/dL 05/05/25, 05:58 Est GFR (CKD-EPI 2020), (mL/min/1.73m2) 60.34 05/05/25, 05:58 Magnesium, (1.6-2.6) 2.2 mg/dL 05/05/25, 05:58 Calcium, (8.3-10.6) 8.6 mg/dL 05/05/25, 05:58 Albumin, (3.2-5.0) 3.6 g/dL 05/05/25, 05:58 Glucose, (74-106) 102 mg/dL 05/05/25, 05:58 Liver Function Panel: ALT, (10-49) 11 U/L 05/05/25, 05:58 AST, (<34) 16 U/L 05/05/25, 05:58 Coagulation Panel: D-Dimer, (<500) 272 ng/mlFEU 05/04/25, 11:00 Cardiac Panel: Troponin I, (<35) 4 ng/L 05/06/25 NT-Pro-B Natriuret Pep, (<300) 230 pg/mL 05/04/25 Venous Blood Gas: VBG pH, (7.31-7.41) 7.40 05/04/25, 11:00 VBG pO2 40 mmHg 05/04/25, 11:00 VBG pCO2, (41-51) 48 mmHg 05/04/25, 11:00 VBG O2 Saturation 78 % 05/04/25, 11:00 VBG HCO3, (23-28) 29 mmol/L H 05/04/25, 11:00 VBG Base Excess, (-2-3) 4 mmol/L H 05/04/25, 11:00 VBG Total CO2, (24-29) 25 mmol/L 05/04/25, 11:00 Thyroid Panel: TSH, (0.55-4.78) 1.59 uIU/mL 05/06/25, 14:27 Infectious Disease: SARS-CoV-2 (PCR), (Negative) Negative 05/04/25, 20:30 COVID-19 Source Nasopharynx 05/04/25, 20:30 Influenza Type A (PCR), (Negative) Negative 05/04/25, 20:30 Influenza Type B (PCR), (Negative) Negative 05/04/25, 20:30 RSV (PCR), (Negative) Negative 05/04/25, 20:30 Imaging and Studies Imaging and Studies Study information below may be from another EMR and interpreted by another provider. Please see original notes in EMR for more complete details. EKG Summary: 05/06/25: Exam: Resting ECG Reason for Exam: chest pain Patient Location: I HR:52 bpm ECG Measurements Heart Rate 52 AXIS FL 158 P 41 QRSd 80 QRS 33 QT 429 T64 QTc 400 Conclusion Sinus bradycardia...rate< 60 Otherwise normal ECG Echocardiogram Summary: 05/06/25: EF 65%, No significant valvular disease Anesthesia Assessment and Plan Anesthesia History Personal History: No History of Anesthesia Complications Family History: No Family History of Anesthesia Complications Exercise Tolerance Exercise Tolerance: Metabolic Equivalents>4 Cardiac & Pulmonary Exam Cardiac Exam: Heart Murmur Present Pulmonary Exam: Clear Bilateral Breath Sounds Implantable Cardiac Device Does patient have a Pacemaker or an ICD?: No Airway Exam Known Difficult Airway: No Mallampati Class: 1 Mouth Opening: Normal (> 3cm) Thyromental Distance: Greater than 3 cm Neck Range of Motion: Full ROM Neck Circumference: Normal Teeth Condition: Normal Dentition and Removable Dentures/Plates Upper ASA Classification ASA Score: ASA 3 Emergency Case?: No NPO Status NPO Status: NPO Clears >2 hours, Solids >8 hours Anesthesia Plan Resuscitation Status: Full Code Anesthesia Technique: General Anesthesia Airway Planned: Natural Airway Monitors Used: Standard Monitors Preoperative Comments:: Chronic cough, lungs clear.
[2025-05-29 08:13] VITALS: BMI 22.9
--- NOTE | 2025-05-29 08:40 | BOWEL_PTH ---
PATIENT: Maricruz Best LOC: [facility] U#:[id number] AGE/SX: 64/F ROOM: RE05/29/[address]: Xiomara Boateng : 1960 BED: DIS: 05/29/2025 SPEC #: [id number] RECD: 05/29/25 12:32 STATUS: CHARLEY RE #: [id number] MAX: 05/29/25 08:[address]: Xiomara Boateng DEPT: Surgical Specimen RECD BY: Kim Beltran ENTERED: 05/29/25 12:33 SP TYPE: Bowel OTHR DR: Tahira Castrejon Tissues: 1 - BIOPSY BOWEL 2 - STOMACH BIOPSY 3 - STOMACH BIOPSY 4 - ESOPHAGUS BIOPSY Procedures: GROSS AND MICRO LEVEL 4 Comments: [id number]
[2025-05-29 08:50] VITALS: BP 103/59; PULSE 50; RESP 16; TEMP 36.3; O2SAT 96
--- NOTE | 2025-05-29 08:54 | W.PM.DSUDISC ---
Date of service: 05/29/25 Discharge Plan Disposition Patient Disposition: Home Condition: Good Discharge Details Reason For Visit: Reflux Attending Provider: Xiomara Boateng Primary Care Provider: Tahira Castrejon Recommendations for Follow Up Recommended tests to be ordered by follow up provider: Follow up pathology Home Meds and New Rx's Prescriptions: Continued ondansetron HCl 4 mg tablet 4 mg PO Q6H PRN sumatriptan succinate 100 mg tablet See Rx Instructions PO .COMPLEX Rx Instructions: take 1 tab at onset of headache; if no relief, may repeat 1 tab after at least 2 hrs; max = 2 tabs/24 hrs PO rosuvastatin 20 mg tablet 20 mg PO DAILY albuterol sulfate [Ventolin HFA] 90 mcg/actuation HFA aerosol inhaler 2 puff inhalation Q6H PRN cyanocobalamin (vitamin B-12) 1,000 mcg capsule 1,000 mcg PO DAILY magnesium citrate 125 mg capsule 125 mg PO DAILY fenofibrate nanocrystallized [Tricor] 145 mg tablet 54 mg PO DAILY trazodone 100 mg tablet 100 mg PO HS Patient Comments: 12/31/21- per [facility] med list- take 1-2 tab po every night (100 mg- 200 mg) pantoprazole 40 mg tablet,delayed release (DR/EC) 40 mg PO DAILY Patient Comments: TAKE ONE TABLET BY MOUTH EVERY DAY multivitamin Tablet 1 tab PO DAILY buspirone 10 mg tablet 10 mg PO BID Patient Comments: TAKE ONE TABLET BY MOUTH TWICE A DAY risperidone 0.5 mg tablet 0.5 mg PO BID Patient Comments: TAKE ONE TABLET BY MOUTH TWICE A DAY NEEDED FOR PANIC ATTACKS vitamin B complex-folic acid [B Complex 1 (with folic acid)] 0.4 mg tablet 1 tab PO ONCE Patient Comments: TAKE ONE TABLET BY MOUTH EVERY MORNING fluticasone propionate 50 mcg/actuation spray,suspension 1 spray INTRANASAL PRN Patient Comments: USE 2 SPRAYS INTO BOTH NOSTRILS ONCE DAILY NEEDED metoprolol succinate 25 mg Tablet Extended Release 24 Hr 25 mg PO HS Qty: 30 0RF Eliquis 5 mg Tablet 5 mg PO BID Qty: 80 0RF Discharge Instructions Additional Instructions: Your upper endoscopy went well today. You did have evidence of a duodenal polyp which was biopsied as well as some gastric polyp which were biopsied. He also had evidence of gastritis or inflammation of the stomach. Biopsies were performed and will be sent to pathology. We will contact you once these results return. If you have any questions or concerns please contact the surgery office. 1. Do not drive, drink alcohol, operate machinery, make critical decisions, or do activities that require coordination or balance for 24 hours. 2. Go directly to the emergency room if you notice any of the following: Develop chills (warm to touch), or if you have a thermometer and your temperature is above 101 Difficulty breathing or difficultly swallowing Persistent vomiting Severe abdominal pain, other than gas cramps Severe chest pain Black, tarry stools Any bleeding ? exceeding one tablespoon 3. Call your physician if the site where your intravenous was started becomes red, swollen, painful, and warm to touch. 4. Your physician has reviewed your pre-procedure medications. Please continue to take those medications as previously ordered. You will be given specific information/education regarding any changes to your medications before leaving. Stand Alone Forms: [facility] (DSU), Portal Information Activity:: Activity as Tolerated Diet:: As Tolerated Discharge Orders Discharge Orders: Discharge Order (Routine); Ordered 05/29/25 Ordered By: Xiomara Boateng
--- NOTE | 2025-05-29 08:56 | W.PM.ENDDOP ---
Date of service: 05/29/25 Time of Service: 08:56 Endoscopy Report DATE OF PROCEDURE: 05/29/25 PRE-OP DIAGNOSIS: Reflux POST-OP DIAGNOSIS: same PROCEDURE: Upper endoscopy with biopsy SURGEON: Xiomara Boateng ANESTHESIA TYPE: General:No Airway ESTIMATED BLOOD LOSS: 1 PATHOLOGY: other (Duodenal polyp, Antrum, Gastric polyp, GE junction ) COMPLICATIONS: None DISPOSITION: PACU INDICATIONS: Patient is a 64-year-old female who was evaluated in the office for ongoing reflux symptoms. She presents today for an upper endoscopy. FINDINGS: Duodenal polyps with biopsy performed. Evidence of gastritis and antral biopsy performed. Small multiple gastric polyps with gastric polypectomy performed. GE junction appeared normal and cold forcep biopsy of the GE junction performed. PROCEDURE DESCRIPTION: After adequate sedation, the upper endoscope was inserted and advanced in the duodenum under direct visualization. The scope was withdrawn and the mucosa inspected. In the duodenal bulb there were multiple small duodenal polyps. A duodenal polypectomy was performed with cold forcep. The stomach had evidence of diffuse gastritis with no evidence of ulcerations or erosions. ?The antrum area was biopsied and also checked for H. pylori.? There were multiple small gastric polyps. A gastric polypectomy was performed with cold forceps. Retroflexion view in the stomach was normal. At the lower esophagus Z line area, this was inspected and noted to be normal. No evidence of Cano?s esophagus or strictures. A cold forcep biopsy of hte GE junction was performed. Otherwise, the esophagus was normal. The scope was completely withdrawn from the patient. The patient tolerated the procedure well with no immediate complications.
--- NOTE | 2025-05-29 09:02 | W.ANESPOSTOP ---
Postoperative Evaluation Date, Time and Location Date Performed: 05/29/25 Time Performed: 09:02 Patient Location: Day Surgery Unit Vital Signs Most Recent Imported Vital Signs: Most Recent Vital Signs Temp Pulse Resp BP Pulse Ox 36.3 C L 50 L 16 103/59 L 96 05/29/25 08:50 05/29/25 08:50 05/29/25 08:50 05/29/25 08:50 05/29/25 08:50 Pain Score Most Recent Pain Score: Most Recent Pain Score Pain Level 0 05/29/25 08:50 Assessment Mental Status: Awake (Alert & Oriented to Patient Baseline) Airway and Respiratory Function: Patent airway with normal (patient baseline) respiratory exam Cardiovascular Function: Hemodynamically Stable Hydration Status: Adequately Hydrated Nausea & Vomiting: No Nausea or Vomiting Pain: Pt. Denies Any Pain Peripheral Nerve Block: Patient did not receive a nerve block
[2025-05-29 09:15] VITALS: BP 115/69; PULSE 49; RESP 16; TEMP 36.5; O2SAT 97
== END 2025-05-29 09:35 | disposition home or self-care (01) ==
PROVIDERS: PCP Family Medicine; Visit Provider Student in an Organized Health Care Education/Training Program
PROC: 0DJ68ZZ Inspection of Stomach, Via Natural or Artificial Opening Endoscopic (ICD-10-PCS; CPT 43235; principal; 2025-05-29 09:00)
DX: K21.9 Gastro-esophageal reflux disease without esophagitis (principal); K31.7 Polyp of stomach and duodenum; K31.89 Other diseases of stomach and duodenum
CPT/HCPCS: 43239; 88305; J2003; J2250; J2704; J3010